=== PATIENT | female | born 1950 | race Caucasian/White ===

== ENCOUNTER 2021-11-19 09:48 | Outpatient (RCR) | payer OTHER, MEDICARE, SELFPAY ==
--- OUTSIDE RECORDS SUMMARY | 2021-11-08 11:10 | XMS_ITS | Continuity of Care Document ---
:1950 Author Care Team Providers Name Role Phone MD Anjel Nava Admitting Physician MD Starr Perez Primary Care Physician Allergies, Adverse Reactions, Alerts Allergen Type Severity Reaction Last Verified Status Updated Aspirin Allergy Mild UNKNOWN September 06, Yes Active 2021 Erythromycin Allergy Mild September 06, Yes Activ e 2021 Dapagliflozin Adverse Moderate September 06, Yes Acti ve Reaction 2021 Social History Smoking Status Status Start Date End Date Date of Observat ion Never smoked tobacco 2021 6:30pm (finding) Observation Status Observation Response Date of Response History provided by Patient April 05, 2019 12:43pm Where do you live? Own home/apt April 05, 2019 12:43pm With whom do you live? Alone February 20, 2018 8:30pm Comment on who patient lives 3 roommates April 052018 12:43pm with Are you responsible for the Yes February 142013 2:25pm care of someone else? 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 Any in-home services prior to No February 14, 2014 2:25pm this hospitalization? Are your needs being met in Yes February 142013 2:25pm your place of residence? Will you return to your Yes February 14, 2014 2:25pm previous living situation? Will you need any new or No February 14, 2014 2:25pm increased services? Will you have the help you Unsure January 2:25pm need when you leave the hospital? 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) COPD (chronic obstructive pulmonary Acti ve disease) Incisional hernia Active Venous stasis of both lower extremities Active Osteoarthritis, shoulder Active Anticoagulation goal of INR 2 to 3 Activ e Malaise Active Cough Active Upper respiratory infection Active History of cardiac pacemaker in situ 2007 Res olved History of amputation of toe Resolved History of esophagogastroduodenoscopy February 22, 2018 Re solved (EGD) History of section Resolved Medications Medication Status Dose Units Route Directions Qty Days Start End Ins tructions Date Date Acetaminophe Active 500 MG PO Every 6 NO M ORE THAN n (Tylenol Hours as 4000 M G/DAY Extra needed Strength) 500 Mg TAB Acyclovir Active 400 MG PO Twice A Day September 24, 2021 3:47pm Albuterol Active 2 PUFF INH Every 4 1 Novembe (Ventolin Hours as r , Hfa) 90 Mcg needed 2019 DOSE 4:04pm Albuterol/Ip Active 1 NEB NEB Four Times 1 Februar ratropium Daily as y , (Duoneb) 3 needed 2020 Mg/0.5 Mg 7:46am NEB Balsalazide Active 2250 MG PO Three Times Disodium A Day (Colazal) 750 Mg CAP Cholecalcife Active 4000 UNIT PO Daily rol (Vitamin D) 2,000 Unit TAB Diabetic Active 1 EACH XX Daily November Supplies: , Pen [place] 2020 (Bd 1:34pm Ultrafine Short 8MM(09/30) 31G Pen Needle) MIS Furosemide Active 20 MG PO Every July (Lasix) 20 Morning 4th, Mg TAB 2020 4:04pm Glipizide Active 7.5 MG PO Twice Daily 90 Decembe With Meals r 2019 8:49am Insulin Active 36 UNIT SUBQ Daily Glargine (Lantus Solostar) 100 Unit/Ml INJ Metformin Active 500 MG PO Twice Daily 60 Hcl With Meals Pseudoephedr Active 60 MG PO Every August For ine Hcl Hours as , drying/de pamela (Pseudoephed needed 2021 estion rine 6:31pm Hydrochlo) 60 Mg TAB Simvastatin Active 40 MG PO Bedtime August 02, 2020 3:16pm Warfarin Active 2.5-5 MG PO Daily Ritter 2.5 M G, M 5 MG, Tu 2.5 MG, W 5 MG, Th 2.5 MG, F 5 MG, Sa Sodium r , 2.5 MG 2019 4:04pm Acetaminophe Disconti 1 - 2 TABLET PO Every 4-6 November e PRN n/Hydrocodon nued Hours 16, r 3rd, e Bitart 2005 2006 (Vicodin) 5 2:18pm 2:09pm Mg/500 Mg TAB Acyclovir Disconti 400 MG PO Twice A Day May nued , , 2021 2021 2:59pm 3:47pm Acyclovir Disconti 400 MG PO Twice A Day 90 Decembe Janua r nued r , 2019, 8:51am 2021 2:59pm Acyclovir Disconti 400 MG PO Twice A Day 180 May nued , 2020 4:34am 2:00pm Acyclovir Disconti 400 MG PO Twice A Day 50 Decemb nued er 2019 8:51am Acyclovir Disconti 400 MG PO Twice A Day August nued , 2019 10:58am 11:06a m Albuterol Disconti 2 PUFF INH Every 4 (Ventolin nued Hours as y , er Hfa) 90 Mcg needed 2019, DOSE 3:47pm 2019 4:04pm Albuterol Disconti 2 PUFF INH Every 4 Sulfate nued Hours as er (Proair Hfa) needed , 90 Mcg/Puff 2016 INH 4:03pm Albuterol/Ip Disconti 1 NEB NEB Four Times Jun layla ratropium nued Daily as r 16, ry (Duoneb) 3 needed 2020 04, Mg/0.5 Mg 5:17pm 2020 NEB 7:46am Albuterol/Ip Disconti 1 NEB NEB Four Times November b ratropium nued Daily as 8th, er (Duoneb) 3 needed 2019 16, Mg/0.5 Mg 2:18pm 2019 NEB 5:17pm Albuterol/Ip Disconti 1 NEB NEB Four Times July ratropium nued Daily as , , (Duoneb) 3 needed 2019 2019 Mg/0.5 Mg 3:52pm 2:18pm NEB Albuterol/Ip Disconti 1 NEB NEB Four Times 1 Novemjul ch ratropium nued Daily as r , , (Duoneb) 3 needed 2018 2019 Mg/0.5 Mg 8:08am 3:52pm NEB Atorvastatin Disconti 10 MG PO Daily December Calcium nued , (Lipitor) 10 2012 Mg TAB 4:43pm Azithromycin Disconti 250 MG PO Daily 4 Novemfebobe nued r , r , 2016 2017 1:10pm 12:46p m Bumetanide Disconti 2 MG PO Daily December (Bumex) 2 Mg nued , TAB 2012 4:45pm Butenafine Disconti 1 REANNA TOP Daily Novemb Hcl nued er (Lotrimin , Ultra) 1 % 2015 CRE 11:52a m Ciprofloxaci Disconti 500 MG PO Twice A Day 28 February Au carlos n Hcl nued , , (Cipro) 500 2006 2012 Mg TAB 3:01pm 4:43pm Dapagliflozi Disconti 10 MG PO Daily Novemb n nued er Propanediol , (Farxiga) 10 2016 Mg TAB 4:03pm Dextromethor Disconti 10 ML PO Every 4 February gonzales-Guaifen nued Hours as 2nd, er esin needed 2013, (Robitussin 8:13am 2015 Dm) 10 11:52a Mg/100 Mg/5 m Ml SOLN Diabetic Disconti 1 EACH XX Daily August Supplies: nued , , Pen [place] 2019 2020 (Bd 11:04am 1:34pm Ultrafine Short 8MM(5/16) 31G Pen Needle) MIS Fluconazole Disconti 200 MG PO Once 1 October mary e once when needed while on antibiotics this week for nued r , , yeast infect ion. lasts 3 days. 2018 2020 8:08am 12:44p m Fluconazole Disconti 150 MG PO Qmon Decemb nued er 2017 12:37p m Fluconazole Disconti 150 MG PO Weekly November nued , 2012 8:08pm 4:43pm Furosemide Disconti 20 MG PO Every July (Lasix) 20 nued Morning 4th, Mg TAB 2019 4:04pm Furosemide Disconti Octobe (Lasix) 40 nued r 3rd, Mg TAB 2006 2:09pm Glipizide Disconti 7.5 MG PO Twice Daily 60 Decemb nued With Meals er 2019 8:49am Glipizide Disconti 1.5 TAB PO Bid Before July Ta ke 1 and nued Meals , , 1/2 tablets 2019 2019 BID before 9:41am 11:06a meals. m Glipizide Disconti 7.5 MG PO Daily 45 July Take 1 and nued y , , 05/19 tablets 2019 2019 daily before 3:06pm 9:41am meals Guaifenesin/ Disconti 5-10 ML PO Every 6 120 Novembe Novemb Codeine nued Hours r , er Phosphate 2015, (Guaifenesin 9:18am 2017 -Codeine) 4:03pm 100 Mg/10 Mg/5 Ml SOLN Hydrocortiso Disconti 1 REANNA TOP Twice A Day 30 Novryan chang ne nued er (Hydrocortis 19, one Cream) 2018 2.5 % CRE 12:38p m Hydrocortiso Disconti 1 REANNA TOP Twice A Day Chacorta chang ne (Topical) nued er (Hydrocortis 15th, one) 2.5 % 2016 LOT 11:52a m Insulin Disconti 27 UNIT SUBQ Bedtime Novemb Glargine nued er (Lantus 19th, Solostar) 2016 100 Unit/1 4:03pm Ml SOLN Insulin Disconti 20 UNIT SUBQ Bedtime 10 Septem Glargine nued lisa (Lantus 30th, Vial) 100 2014 Unit/1 Ml 12:20p SOLN m Insulin Disconti 22 UNIT SUBQ Daily Novemb Glargine-Lix nued er isenatide , (Soliqua 2016 100/33 4:15pm 100-33 Unt-Mcg/Ml) 1 Inj INJ Lactic Acid Disconti 12 % EX Daily Novemb (Ammonium nued er Lactate) , (Ammonium 2019 Lactate) 12 12:38p % CRE m Lactic Acid Disconti 1 REANNA TOP as needed Novem (Ammonium nued er Lactate) , (Ammonium 2015 Lactate) 11:52a % CRE m Levofloxacin Disconti 500 MG PO Every 24 7 Novemmayua r (Levaquin) nued Hours r , y 500 Mg TAB 2018, 8:08am 2019 11:05a m Levofloxacin Disconti 750 MG PO Daily (Levaquin) nued r , er 750 Mg TAB 2015, 9:18am 2016 4:03pm Levofloxacin Disconti 500 MG PO Daily February (Levaquin) nued 2nd, er 500 Mg TAB 2013, 8:13am 2015 11:52a m Levofloxacin Disconti 750 MG OR Daily nued er 3rd, lisa 2012, 12:17pm 2013 12:20p m Loratadine Disconti 10 MG PO Daily as 30 Febobe (Claritin) nued needed r , 10 Mg TAB 2017 12:46p m Mesalamine Disconti 500 MG PO Four Times December (Pentasa) nued Daily , 500 Mg CAP 2012 4:43pm Oxycodone/Ac Disconti 1 - 2 TABLET PO Q4-6H Prn as December etaminophen nued needed er , (Percocet) 2012 Mg/325 Mg 2010 4:47pm TAB 7:30pm Pentaza Disconti Octobe nued r 2006 2:09pm Potassium Disconti 20 MEQ PO Daily December Chloride nued 2012 4:43pm Prednisone Disconti 0 PO Daily Ud August 60 MG PO on day 1, THEN nued , 40 MG PO DAILY FOR 4 DAYS. 2021 2021 6:31pm 1:46pm Prednisone Disconti 20 MG PO Daily With 3 3 Dulce r nued Am Meal r , y 2018, 8:08am 2019 11:05a m Prednisone Disconti 20 MG PO Daily 4 Novem Octobe nued r , r 7th, 2016 2017 1:08pm 12:46p m Salmeterol Disconti 1 PUFF PO As Needed 14 January Xinafoate/Fl nued , uticasone 2012 (Advair 4:45pm Diskus 100/50) 1 Ea AERP Simvastatin Disconti 40 MG PO Bedtime July nued r , 2019 8:56am 3:16pm Simvastatin Disconti 40 MG PO Bedtime December nued , er 2019, 3:16pm 2019 8:56am Simvastatin Disconti 40 MG PO Bedtime November 7:38pm 3:16pm Simvastatin Disconti 40 MG PO Bedtime November 7:38pm Sulfamethoxa Disconti 1 TAB PO Twice A Day Jan zole-Trimeth nu lisa oprim , (Bactrim Ds) 2013 800 Mg/160 12:20p Mg TAB m Triamcinolon Disconti 1 REANNA TOP Twice A Day 15 Chacorta chang e Acetonide nued er (Triamcinolo , ne Acetonide 2018 (Cream)) 0.1 12:38p % CRE m Triamcinolon Disconti 1 REANNA TOP Twice A Day Chacorta chang e Acetonide nued er (Triamcinolo , ne Acetonide 2015 (Cream)) 0.1 11:52a % CRE m Warfarin Disconti 2.5-5 MG PO Daily November Ritter 2.5 MG, M 5 MG, Tu 2.5 MG, W 5 MG, Th 2.5 MG, F 5 MG, Sa Sodium , er 2.5 MG 2019, 4:56pm 2019 4:04pm Warfarin Disconti 5 MG PO As Directed October Ritter 2.5 MG, M 5 MG, Tu 2.5 MG, W 5 MG, Th 2.5 MG, F 5 MG, Sa Sodium nued , 24, 2.5 MG 2019 2019 1:26pm 4:19pm Warfarin Disconti 5 MG PO As Directed August Ritter 5 MG, M 2.5 MG, Tu 2.5 MG, W 2.5 MG, Th 2.5 MG, F 2.5 Sodium nued , , MG, Sa 2.5 MG 2019 2019 10:58am 1:26pm Warfarin Disconti 5 MG PO As Directed August Ritter 5 MG, M 2.5 MG, Tu 2.5 MG, W 2.5 MG, Th 2.5 MG, F 2.5 Sodium nued 17th, MG, Sa 2.5 MG 2019 10:58a m Warfarin Disconti 5 MG PO As Directed 60 ua 5 MG (1TAB) ON Sodium nued ry THU,THU 2.5MG 7th, (1/2 TABLET) 2019 ON ALL OTHER 2:37pm DAYS Warfarin Disconti 2.5 MG PO Daily 30 Octobe Sodium nued r , 2016 1:08pm 12:46p m Warfarin Disconti 2.5 MG PO Every b Sodium nued Thursday, er Thursday, , 2016, 1:34pm And Thursday Warfarin Disconti 5 MG PO Every Thursday Novemb Sodium nued And Thursday er 2016 1:08pm Warfarin Disconti 5 MG PO Septem Sodium nued lisa (Coumadin) 5 3rd, Mg TAB 2012 12:17p m Warfarin Disconti 2.5 MG PO Suntue Septem Sodium nued lisa (Coumadin) 5 3rd, Mg TAB 2012 12:17p m Warfarin Disconti 0.5 MG PO Tthsasun December Sodium nued , (Coumadin) 1 2012 Mg TAB 4:43pm Warfarin Disconti 1 MG PO Mwf December Sodium nued , (Coumadin) 1 2013 Mg TAB 4:39pm Warfarin Disconti Octobe Sodium nued r 3rd, (Coumadin) 1 2007 Mg TAB 2:09pm Warfarin Disconti Octobe Sodium nued r 3rd, (Coumadin) 1 2007 Mg TAB 2:09pm Immunizations Immunization Event Date Not Given Dose [employer] [place] Reason Number Number Informatio n Statement (VIS) Deta il Herpes Zoster February 152013 Influenza March 182018 Prevnar Adult October 202014 Pneumovax Adult December 222017 Tdap March 18 (adolescent/adul 2007 t) Relevant Diagnostic Tests and/or Laboratory Data Laboratory Results Test Date/Time Result Interpretation Reference Result Perfo rming Range Comment Site White Blood September 06, 6.68 5.00-10.00 [facility] Lab Count 2021 9:58am [address] [place] [id number] Red Blood September 06, 4.89 3.90-5.03 [facility] Lab Count 2021 9:58am [address] [place] [address] Hemoglobin September 06, 13.7 12.0-15.5 [facility] 2021 9:58am [address] [facility] [address] Hematocrit September 06, 42.0 34.9-44.5 [facility] 2021 9:58am [address] [place] [address] Mean September 06, 86 82-98 [facility] Corpuscular 2021 9:58am [address] [facility] [place] [address] Mean September 06, 28 27-34 [facility] Corpuscular 2021 9:58am [address] [facility] Hemoglobin [facility] [place] [address] Mean September 06, 33 32-36 [facility] Corpuscular 2021 9:58am [address] [facility] Hemoglobin [facility] [place] [address] Concent Platelet Count September 06, 273 150-450 [facility] 2021 9:58am [address] [facility] [address] RDW September 06, 13.1 11.5-15.3 [facility] Lab Coefficient of 2021 9:58am 200 0 [place] [address] Neutrophils September 06, 76.0 50.0-70.0 [facility] (%) (Auto) 2021 9:58am [address] No [facility] [address] Lymphocytes September 06, 15.0 25.0-45.0 [facility] (%) (Auto) 2021 9:58am 1999 [place] [address] Monocytes (%) September 06, 6.7 0.00-11.0 [facility] (Auto) 2021 9:58am [address] [facility] [place] [address] Eosinophils September 06, 1.6 0.0-7.0 [facility] (%) (Auto) 2021 9:58am 1999 [address] [facility] [address] Basophils (%) September 06, 0.4 0.0-3.0 [facility] (Auto) 2021 9:58am [address] [facility] [address] Immature September 06, 0.3 [facility] Lab Granulocyte % 2021 9:58am [address] [facility] (Auto) [facility] [address] Neutrophils # September 06, 5.07 1.70-7.00 [facility] Hospital Lab (Auto) 2021 9:58am [address] [facility] [address] Lymphocytes # September 06, 1.00 0.90-2.90 [facility] Hospital Lab (Auto) 2021 9:58am [address] [facility] [address] Monocytes # September 06, 0.45 0.30-0.90 [facility] Lab (Auto) 2021 9:58am [address] [facility] [address] Eosinophils # September 06, 0.11 0.00-0.50 [facility] Hospital Lab (Auto) 2021 9:58am [address] [facility] [address] Basophils # September 06, 0.03 0.00-0.20 [facility] Hospital Lab (Auto) 2021 9:58am [address] [facility] [address] Immature September 06, 0.02 [facility] Hospital Lab Granulocyte # 2021 9:58am [address] [facility] (Auto) [facility] [address] Direct September 06, 0.2 0.0-0.5 [facility] Hospital Lab Bilirubin 2021 9:58am [address] [facility] [address] Aspartate September 06, 21 12-35 [facility] Lab Amino Transf [address] [facility] (AST/SGOT) [place] [address] Alkaline September 06, 56 40-150 [facility] Lab Phosphatase 2021 9:58am [address] [facility] [address] Advance Directives Advance Directive Response Recorded Date/Time Does Pt have Health Care No February 14, 2014 2:14pm Directive? Has patient completed a No 2021 6:02pm Health Care Directive? Insurance Providers Guarantor Narcisa Fields Address [address] [facility] [address] Contact Info. Home Phone: CELL Payer Policy Id Coverage Id Subscriber's Subscriber Id Effective E xpiration Name Date Date [employer] [id number] Timmy, December 16, [place] [address] Narcisa B [id number] [facility] Encounters Encounter Location(s) Arrival/Admit Date Discharge/Depart Date Provider(s) Registered [place] October 17, 2021 Jimi Nunn [facility] 7:05am Plan of Treatment Future Tests Future scheduled test information is unavailable Pending Tests Pending diagnostic test information is unavailable Future Visits Future appointment information is unavailable Referrals to Other Providers Reason for Referral Start Provider Provider Contact Provider Address Referral Date Information Tiny Perez Work Phone: DIDI Gordillo [place] [address] [facility] [address] [address] Tod Kwok Work Phone: [phone] [facility] [address] [address] Future Procedures Future procedure information is unavailable Future Medications Future medication information is unavailable Patient Instructions Prednisone (By mouth) Fluconazole (By mouth) Levofloxacin (By mouth) Ipratropium/Albuterol (By breathing) COPD (Chronic Obstructive Pulmonary Dise ase) (DC) Community Acquired Pneumonia (DC)
[2021-11-19 10:12] VITALS: BP 130/81; PULSE 68; RESP 16; TEMP 36.2; O2SAT 96
[2021-11-19] MEDS: CYANOCOBALAMIN 1,000 MCG/ML inj 1000 MCG IM (10:26)
== END 2021-12-15 23:59 | disposition home or self-care (01) ==
LOC: CCIC 09:48
PROVIDERS: PCP Family Medicine; Visit Provider Internal Medicine Hematology & Oncology
DX: C49.A4 Gastrointestinal stromal tumor of large intestine (principal); E53.8 Deficiency of other specified B group vitamins
CPT/HCPCS: 96372; J3420

== ENCOUNTER 2022-01-15 19:46 | Emergency (ER) | payer OTHER, MEDICARE, SELFPAY ==
[2022-01-15 19:54] VITALS: BP 130/89; PULSE 68; RESP 16; TEMP 36.4; O2SAT 94; BMI 38.5
--- NOTE | 2022-01-15 20:12 | CRLHL7_ITS ---
For Patients: As a result of the Cures Act, medical imaging exams and procedure reports are released immediately into your electronic medical record. You may view this report before your referring provider. If you have questions, please contact your health care provider. Indication: Right-sided back pain Technique: Two views of the lumbar spine were acquired Comparison: None Findings: No fracture, dislocation or destructive process. The height of the vertebral bodies is normal. There degenerative changes mainly in the facet joints of the mid and lower lumbar spine. There is mild diffuse disc degenerative disease. No malalignment. Impression: Degenerative changes mainly in the facet joints of the mid and lower lumbar spine. Mild diffuse disc degeneration. No fracture or destructive process Dictated by Solo Ivan MD @ 01/15/2022 8:45:46 PM (Electronically Signed)
[2022-01-15 20:28] LABS: Appearance Urine Clear (Clear); Bilirubin Urine Negative (Negative); Blood Urine 3+ (Negative); Color Urine Yellow (Yellow); Glucose Urine Trace (Negative); Ketones Urine Negative (Negative); Leukocyte Esterase Urine Negative (Negative); Nitrite Urine Negative (Negative); Protein Urine Trace (Negative); Specific Gravity Urine >= 1.030 (1.000-1.030); Urobilinogen Urine 0.2 (0.2-1.0)
--- NOTE | 2022-01-15 20:34 | ED.BACK ---
HPI - Back Pain/Injury General Chief Complaint: Back Injury/Pain Stated Complaint: Lower Back Pain/Right Side Time Seen by Provider: 01/15/22 19:55 Source: patient Mode of arrival: wheelchair Limitations: no limitations History of Present Illness HPI Narrative: Patient is a very nice 71-year-old female who presents with her significant other with a history of 24-36 hours of right flank back discomfort. There is some radiation to her right hip with this. He has no history of falls or trauma associated with this, she describes to me the pain is approximately 7/10, she has been taking Tylenol 2 extra-strength every 4-6 hours. With no relief of the pain. She does not describe any abdominal symptoms such as radiation to the right groin, nausea vomiting diarrhea, abdominal pain, dysuria frequency, or vaginal discharge. She has had back pain before and right hip discomfort, which she has been told it was musculoskeletal. She does have a history of a malignancy, but has been clear for the last 2-3 years, note this in her chart, is reviewed. 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 She did have a CT scan done of the chest abdomen and pelvis in August 2021, this was clear of any tumor, or metastases, I do also note on that that there is no nephrolithiasis or aortic dilatation. History of appendectomy, cholecystectomy, known abdominal wall hernia, previous gastric surgery Exacerbating factors: movement, sitting upright and walking Relieving factors: none and immobilization Associated symptoms: denies other symptoms Treatments prior to arrival: acetaminophen Work related injury: No Related Data Home Medications Medication Instructions Recorded Confirmed acetaminophen 500 mg capsule 500 mg PO Q6H PRN 11/14/21 11/14/21 acyclovir 400 mg tablet 400 mg PO BID 11/14/21 11/14/21 albuterol sulfate 90 mcg/actuation 2 inh inhalation Q4H PRN 11/14/21 11/14/21 aerosol inhaler (ProAir HFA) balsalazide 750 mg capsule 2,250 mg PO TID 11/14/21 11/14/21 cholecalciferol (vitamin D3) 50 4,000 unit PO DAILY 11/14/21 11/14/21 mcg (2,000 unit) capsule furosemide 20 mg tablet 20 mg PO DAILY 11/14/21 11/14/21 glipizide 5 mg tablet 7.5 mg PO BIDWM 11/14/21 11/14/21 insulin glargine 100 unit/mL (3 36 unit subcut DAILY 11/14/21 11/14/21 mL) subcutaneous pen (Lantus Solostar U-100 Insulin) ipratropium 0.5 mg-albuterol 3 mg 3 ml inhalation Q6H 11/14/21 11/14/21 (2.5 mg base)/3 mL nebulization soln metformin 500 mg tablet 500 mg PO BIDWMEAL 11/14/21 11/14/21 pseudoephedrine HCl 60 mg tablet 60 mg PO Q6H PRN 11/14/21 11/14/21 simvastatin 40 mg tablet 40 mg PO QPM 11/14/21 11/14/21 warfarin 2.5 mg tablet 2.5 mg PO DAILY 11/14/21 11/14/21 Allergies Allergy/AdvReac Type Severity Reaction Status Date / Time aspirin Allergy Mild Verified 11/19/21 10:34 dapagliflozin Allergy Unknown Verified 11/19/21 10:34 erythromycin base Allergy Unknown Verified 11/19/21 10:34 Review of Systems Status of ROS: Reports: 10 or more systems reviewed and unremarkable except as noted in History and below [facility] Medical History Anticoagulation goal of INR 2 to 3 Cardiomyopathy Chronic atrial fibrillation Chronic obstructive pulmonary disease Cough History of amputation of toe History of cardiac pacemaker in situ (2007) History of Clostridioides difficile colitis (02/22/18) History of colonic polyps (2010) History of Crohn's disease 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) History of vitamin D deficiency Hyperlipidemia Incisional hernia Malaise Osteoarthritis of shoulder Type 2 diabetes mellitus Upper respiratory tract infection Venous stasis of both lower extremities Surgical History History of section History of esophagogastroduodenoscopy (EGD) (02/22/18) History of laparoscopic partial gastrectomy (~03/2018) Social History Smoking Status: Never smoker How often do you have a drink containing alcohol: never AUDIT-C Alcohol total score: 0 Non-prescribed substance use: denies use service: No Exam Narrative: Exam Narrative: I find her in room 3, she is offloading her right side, while sitting, she is able to stand for me, forward flexion is approximately 30?, with increased pain. No palpable tenderness noted over her back on palpation percussion, she does symptom excoriations from scratching, and some mild small ulcers from the scratching. But none of them appear infected. She is able to walk for me, in the room both heel and toe walking or assessed and normal, straight leg raising in the seated position is normal bilaterally, EHLs great toe flexors ankle dorsiflexors plantar flexors knee flexors 10 sirs and hip flexors are graded 5/5 power bilaterally, she does have some lymphedema both legs bilaterally, 1 to 2+, I am able to feel her posterior tibial pulses which seems strong bilaterally. Reflexes are 0-4 her ankles and knees. Her abdomen is obese and distended, hernias are noted, there is no tenderness at all to palpation, bowel sounds are normal, there is no organomegaly I can discern, but due to the large size of her abdomen and this is tough. Skin reveals no evidence of any rashes, other than described above, normal power in her lower extremities and upper extremities is noted. Const: Vital Signs, click to edit/add: Vital Signs - 24 hr 01/15/22 19:54 01/15/22 21:39 Temperature 97.6 F Pulse Rate [Right Pulse Oximeter] 68 78 Respiratory Rate 16 18 Blood Pressure [Ri ght Upper Arm] 130/89 134/61 Pulse Oximetry 94 96 Oxygen Delivery Me thod Room Air Room Air Documenting provider has reviewed patient's vital signs: yes Course Course Hospital Course: Patient improved with the Vicodin, her labs showed that she had a little bit of blood in her urine, for that reason a CT scan was done this was negative for stone, at this point I think we can let her go home, incidentally her lumbar spine showed that she had an L4-5 protrusion, which I do not think is causing her issues. But would be a possibility going forward if this becomes an issue Vital Signs Vital signs: Initial Vital Signs Temperature 97.6 F 01/15/22 19:54 Temperature Source Temporal Artery Scan 01/15/22 19:54 Pulse Rate 68 01/15/22 19:54 Respiratory Rate 16 01/15/22 19:54 Blood Pressure 130/89 01/15/22 19:54 Blood Pressure Mean 102 01/15/22 19:54 Blood Pressure Position Sitting 01/15/22 19:54 Pulse Oximetry 94 01/15/22 19:54 Oxygen Delivery Method 01/15/22 19:54 Vital Signs Temperature 97.6 F 01/15/22 19:54 Pulse Rate 68 01/15/22 19:54 Respiratory Rate 16 01/15/22 19:54 Blood Pressure 130/89 01/15/22 19:54 Pulse Oximetry 94 01/15/22 19:54 Oxygen Delivery Method 01/15/22 19:54 Temperature 97.6 F 01/15/22 19:54 Pulse Rate 78 01/15/22 21:39 Respiratory Rate 18 01/15/22 21:39 Blood Pressure 134/61 01/15/22 21:39 Pulse Oximetry 96 01/15/22 21:39 Oxygen Delivery Method 01/15/22 21:39 MDM - Back Pain/Injury MDM Narrative Medical decision making narrative: Life-threatening differential diagnosis considered include: Cauda equina an epidural abscess, other differential diagnosis considered includes sprain, contusion, nerve root entrapment, radiculopathy, muscle spasm, urolithiasis, lumbar fracture, pyelonephritis, appendicitis, biliary colic, as well as other etiologies. The patient denies saddle anesthesia bowel or bladder incontinence or lower extremity weakness, recent weight loss, or history of malignancy. Differential Diagnosis Differential diagnosis: Likely lumbar radiculopathy, sciatica, strain of lumbar region, renal colic, thoracic back pain, AAA and discitis Lab Data Labs: Lab Results 01/15/22 Range/Units 20:20 Urine Color Yellow (Yellow) Urine Appearance Clear (Clear) Urine pH 5.0 (5.0-8.5) Ur Specific [place] >= 1.030 (1.000-1.030) Urine Protein Trace A (Negative) Urine Glucose (UA) Trace A (Negative) Urine Ketones Negative (Negative) Urine Blood 3+ A (Negative) Urine Nitrite Negative (Negative) Urine Bilirubin Negative (Negative) Urine Urobilinogen 0.2 (0.2-1.0) Ur Leukocyte Esterase Negative (Negative) Urine RBC 10-25 A (0-2) Urine WBC 0-2 (0-5) Ur Squamous Epith Cells Few (None-Few) Urine Bacteria None (None) Imaging Data CT scan - abdomen: Attestation: I have reviewed the pertinent imaging results. My impression: Negative for stone, hernia noted in the abdomen, with bowels within it, no evidence of incarceration. Radiologist's impression: Patient: NARCISA FIELDS Facility:?[facility] Patient ID:?[id number] Site Patient ID:?[id number]. Site :?[id number] Study:?CT Abdomen/Pelvis w/o Contrast-01/15/2022 10:04:28 PM Ordering Physician:Jennifer Sousa Final Report: Indication: Right-sided back pain hematuria Technique: Noncontrast CT abdomen and pelvis Comparison: CT abdomen pelvis 09/06/2021 Findings: Heart is enlarged. There is no pericardial effusion. No pleural effusion basilar atelectasis. Mild splenomegaly measuring 14 cm. Adrenal glands unremarkable pancreas unremarkable no abdominal aortic aneurysm. Kidneys are unremarkable. No hydronephrosis or renal calculi the unenhanced liver is unremarkable cholecystectomy. Postsurgical changes from partial gastrectomy. Ventral hernia containing fat and bowel loops without obstruction . There is skin thickening and mild subcutaneous stranding in the periumbilical region correlate clinically for cellulitis Diverticulosis. Urinary bladder incompletely distended, unremarkable. Subcutaneous edema. Bones appear demineralized no suspicious bony lesions. Impression: 1. No acute findings in the abdomen or pelvis. No renal calculi or hydronephrosis. 2. Mild skin thickening and subcutaneous stranding along the periumbilical region and lower abdominal wall correlate clinically for possible cellulitis. 3. Subcutaneous edema. Please note that all CT scans at this facility use dose modulation, iterative reconstruction, and/or weight-based dosing when appropriate to reduce radiation dose to as low as reasonably achievable. Dictated by Ruthie Luna MD @ 01/15/2022 10:44:56 PM (Electronic Signature) Discharge Plan Discharge Clinical Impression: Strain of lumbar region, Hematuria, Chronic anticoagulation Patient Disposition: Home w/ Parent or Adult Condition: Stable Instructions: Back Pain (ED) Additional Instructions: Home, rest, use of ice alternating with heat, follow-up with primary care physical therapy may be needed, you can use the prescription I have given you, please do not use any other Tylenol with this. As there is Tylenol in with the Vicodin. Do Not combine alcohol with this, and use it sparingly as there is a risk of addiction. Prescription for Vicodin given through instymeds Activity Level: Light activity Prescriptions: No Action acetaminophen 500 mg capsule 500 mg PO Q6H PRN acyclovir 400 mg tablet 400 mg PO BID albuterol sulfate [ProAir HFA] 90 mcg/actuation HFA aerosol inhaler 2 inh inhalation Q4H PRN balsalazide 750 mg capsule 2,250 mg PO TID cholecalciferol (vitamin D3) 50 mcg (2,000 unit) capsule 4,000 unit PO DAILY furosemide 20 mg tablet 20 mg PO DAILY glipizide 5 mg tablet 7.5 mg PO BIDWM insulin glargine [Lantus Solostar U-100 Insulin] 100 unit/mL (3 mL) insulin pen 36 unit subcut DAILY ipratropium-albuterol 0.5 mg-3 mg(2.5 mg base)/3 mL solution for nebulization 3 ml inhalation Q6H metformin 500 mg tablet 500 mg PO BIDWMEAL pseudoephedrine HCl 60 mg tablet 60 mg PO Q6H PRN simvastatin 40 mg tablet 40 mg PO QPM warfarin 2.5 mg tablet 2.5 mg PO DAILY Follow Up/Referrals: Tiny Perez MD [Primary Care Provider] - Stand Alone Forms: [employer] Info Instructions
[2022-01-15] MEDS: HYDROCODONE-ACETAMIN 5-325 MG 1 TAB PO (20:35)
[2022-01-15 21:05] LABS: WBC Urine 0-2 (0-5)
[2022-01-15 21:06] LABS: Squamous Epithelial Cell Urine Few (None-Few)
--- NOTE | 2022-01-15 21:12 | CRLHL7_ITS ---
For Patients: As a result of the Century Cures Act, medical imaging exams and procedure reports are released immediately into your electronic medical record. You may view this report before your referring provider. If you have questions, please contact your health care provider. Indication: Right-sided back pain hematuria Technique: Noncontrast CT abdomen and pelvis Comparison: CT abdomen pelvis 09/06/2021 Findings: Heart is enlarged. There is no pericardial effusion. No pleural effusion basilar atelectasis. Mild splenomegaly measuring 14 cm. Adrenal glands unremarkable pancreas unremarkable no abdominal aortic aneurysm. Kidneys are unremarkable. No hydronephrosis or renal calculi the unenhanced liver is unremarkable cholecystectomy. Postsurgical changes from partial gastrectomy. Ventral hernia containing fat and bowel loops without obstruction . There is skin thickening and mild subcutaneous stranding in the periumbilical region correlate clinically for cellulitis Diverticulosis. Urinary bladder incompletely distended, unremarkable. Subcutaneous edema. Bones appear demineralized no suspicious bony lesions. Impression: 1. No acute findings in the abdomen or pelvis. No renal calculi or hydronephrosis. 2. Mild skin thickening and subcutaneous stranding along the periumbilical region and lower abdominal wall correlate clinically for possible cellulitis. 3. Subcutaneous edema. Please note that all CT scans at this facility use dose modulation, iterative reconstruction, and/or weight-based dosing when appropriate to reduce radiation dose to as low as reasonably achievable. Dictated by Ruthie Luna MD @ 01/15/2022 10:44:56 PM (Electronically Signed)
[2022-01-15 21:39] VITALS: BP 134/61; PULSE 78; RESP 18; O2SAT 96
== END 2022-01-15 22:54 | disposition home or self-care (01) ==
PROVIDERS: Emergency Provider Family Medicine; PCP Family Medicine
DX: S39.012A Strain of muscle, fascia and tendon of lower back, initial encounter (principal); R31.9 Hematuria, unspecified; Z79.01 Long term (current) use of anticoagulants
CPT/HCPCS: 72100; 74176; 81001; 99284; 99285; A9270

== ENCOUNTER 2022-01-16 06:51 | Outpatient (CLI) | payer OTHER, MEDICARE, SELFPAY | END 2022-01-16 06:52 | disposition home or self-care (01) | LOC: AMB 01-27 11:46 | PROVIDERS: PCP Family Medicine; Visit Provider Family Medicine | DX: R10.9 Unspecified abdominal pain (principal) | CPT/HCPCS: A0425; A0427 ==

== ENCOUNTER 2022-01-16 07:12 | Emergency (ER) | payer OTHER, MEDICARE, SELFPAY ==
[2022-01-16 07:18] VITALS: BP 156/86; PULSE 61; RESP 18; TEMP 36.6; O2SAT 95; BMI 39.8
--- NOTE | 2022-01-16 07:38 | ED_ITS ---
HPI - Back Pain/Injury General Time Seen by Provider: 07:38 <Lars Hernandez MD - Last Filed: 01/23/22 08:59> Date Seen: 01/16/22 <Lars Hernandez MD - Last Filed: 01/23/22 08:59> Chief Complaint: Back Injury/Pain <Lars Hernandez MD - Last Filed: 01/23/22 08:59> Time Seen by Provider: 01/16/22 07:36 <Lars Hernandez MD - Last Filed: 01/23/22 08:59> Source: patient <Lars Hernandez MD - Last Filed: 01/23/22 08:59> Mode of arrival: EMS <Lars Hernandez MD - Last Filed: 01/23/22 08:59> Limitations: no limitations <Lars Hernandez MD - Last Filed: 01/23/22 08:59> History of Present Illness HPI Narrative: Patient is a 71-year-old female who presents here with right flank pain I saw her last night, she improved yesterday with 1 Vicodin, her pain seem more musculoskeletal, with no radiation. She went home, she has taken a total of 2 doses of hydrocodone since then but the pain has become unbearable. There is no radiation of the discomfort into her buttock, or into her abdomen. She did have hematuria on noncontrast CT, which I did for the primary indication of renal colic. There is no evidence of renal colic or really any evidence of anything else. She has the chronic problem with hernia, but there is no evidence of strangulation or incarceration. In fact she has no abdominal pain at all, she is nauseous and did vomit once on the way to the emergency room by EMS, but she feels this is from the Vicodin. No fevers or chills, no dysuria frequency, no pain with breathing, no chest discomfort, feeling she might pass out, rapid heart rate, or regular heart rate. <Lars Hernandez MD - Last Filed: 01/23/22 08:59> MD elicited complaint: back pain <Lars Hernandez MD - Last Filed: 01/23/22 08:59> Pertinent past history: prior back pain <Lars Hernandez MD - Last Filed: 01/23/22 08:59> Onset (ago): day(s) <Lars Hernandez MD - Last Filed: 01/23/22 08:59> Timing: progressively worsening <Lars Hernandez MD - Last Filed: 01/23/22 08:59> Severity: severe <Lars Hernandez MD - Last Filed: 01/23/22 08:59> Similar Symptoms Previously: Yes <Lars Hernandez MD - Last Filed: 01/23/22 08:59> Quality: stabbing and aching <Lars Hernandez MD - Last Filed: 01/23/22 08:59> Location: right flank <Lars Hernandez MD - Last Filed: 01/23/22 08:59> Radiation: none <Lars Hernandez MD - Last Filed: 01/23/22 08:59> Exacerbating factors: movement, sitting upright and walking <Lars Hernandez MD - Last Filed: 01/23/22 08:59> Relieving factors: immobilization <Lars Hernandez MD - Last Filed: 01/23/22 08:59> Associated symptoms: hematuria <Lars Hernandez MD - Last Filed: 01/23/22 08:59> Treatments prior to arrival: prescription analgesics <MD Mercedes Jones Last Filed: 01/23/22 08:59> Work related injury: No <MD Mercedes Jones Last Filed: 01/23/22 08:59> Related Data Home Medications: Home Medications Medication Instructions Recorded Confirmed acetaminophen 500 mg capsule 500 mg PO Q6H PRN 11/14/21 01/18/22 acyclovir 400 mg tablet 400 mg PO BID 11/14/21 01/18/22 albuterol sulfate 90 mcg/actuation 2 inh inhalation Q4H PRN 11/14/21 01/18/22 aerosol inhaler (ProAir HFA) balsalazide 750 mg capsule 2,250 mg PO TID 11/14/21 01/18/22 cholecalciferol (vitamin D3) 50 4,000 unit PO DAILY 11/14/21 01/18/22 mcg (2,000 unit) capsule furosemide 20 mg tablet 20 mg PO DAILY 11/14/21 01/18/22 glipizide 5 mg tablet 7.5 mg PO BIDWM 11/14/21 01/18/22 insulin glargine 100 unit/mL (3 36 unit subcut DAILY 11/14/21 01/18/22 mL) subcutaneous pen (Lantus Solostar U-100 Insulin) ipratropium 0.5 mg-albuterol 3 mg 3 ml inhalation Q6H 11/14/21 01/18/22 (2.5 mg base)/3 mL nebulization soln metformin 500 mg tablet 500 mg PO BIDWMEAL 11/14/21 01/18/22 pseudoephedrine HCl 60 mg tablet 60 mg PO Q6H PRN 11/14/21 01/18/22 simvastatin 40 mg tablet 40 mg PO QPM 11/14/21 01/18/22 warfarin 2.5 mg tablet See Rx Instructions PO DAILY 11/14/21 01/19/22 cholecalciferol (vitamin D3) 125 5,000 unit PO DAILY 01/19/22 01/19/22 mcg (5,000 unit) capsule metformin 500 mg tablet,extended 1,000 mg PO BIDWMEAL 01/19/22 01/19/22 release 24 hr tizanidine 2 mg tablet 2 mg PO TID PRN muscle spasticity 01/19/22 01/19/22 Previous Rx's Medication Instructions Recorded tizanidine 2 mg capsule 2 mg PO TID PRN muscle spasticity 01/16/22 #30 caps <Lars Hernandez MD - Last Filed: 01/23/22 08:59> Allergies/Adverse Reactions: Allergies Allergy/AdvReac Type Severity Reaction Status Date / Time aspirin Allergy Mild Verified 01/18/22 19:38 dapagliflozin Allergy Unknown Verified 01/18/22 19:38 erythromycin base Allergy Unknown Verified 01/18/22 19:38 <Lars Hernandez MD - Last Filed: 01/23/22 08:59> Review of Systems Status of ROS: Reports: 10 or more systems reviewed and unremarkable except as noted in History and below <Lars Hernandez MD - Last Filed: 01/23/22 08:59> [facility] Medical History: Medical History (Updated 01/23/22 @ 00:01 by ) 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 Anticoagulation goal of INR 2 to 3 Cardiomyopathy Chronic atrial fibrillation Chronic obstructive pulmonary disease Cough History of amputation of toe History of cardiac pacemaker in situ (2007) History of Clostridioides difficile colitis (02/22/18) History of colonic polyps (2010) History of Crohn's disease 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) History of vitamin D deficiency Hyperlipidemia Incisional hernia Malaise Melena Morbid obesity with BMI of 40.0-44.9, adult Osteoarthritis of shoulder Regional enteritis Type 2 diabetes mellitus Upper respiratory tract infection Venous stasis of both lower extremities <Lars Hernandez MD - Last Filed: 01/23/22 08:59> Surgical History: Surgical History (Updated 01/19/22 @ 01:17 by Kati Kilpatrick MD) H/O rectal polypectomy History of section History of esophagogastroduodenoscopy (EGD) (02/22/18) History of laparoscopic partial gastrectomy (~03/2018) Hx of appendectomy Hx of cholecystectomy <Lars Hernandez MD - Last Filed: 01/23/22 08:59> Family History: Family History (Updated 01/19/22 @ 01:18 by Kati Kilpatrick MD) Father Prostate cancer Mother Diabetes Coronary artery disease <Lars Hernandez MD - Last Filed: 01/23/22 08:59> Social History: Social History Smoking Status: Never smoker How often do you have a drink containing alcohol: never AUDIT-C Alcohol total score: 0 Non-prescribed substance use: denies use Caffeine: Yes (a few cans per day) service: No <Lars Hernandez MD - Last Filed: 01/23/22 08:59> Exam Narrative: Exam Narrative: I find her laying on her left side in room 8, she is pleasant, planing of pain in her right flank. Oropharynx is normal, she is obese, neck is supple, there is no lymphadenopathy, chest is good air entry bilaterally with absence of splinting, there is no wheezing crackles noted, heart sounds no clicks murmurs or gallops, her abdomen is soft and obese, there is a freely reducible midline hernia, notable bowel sounds are normal there is no organomegaly. She does not have any tenderness to palpation over her right flank, percussion palpation, twisting and moving seems to exacerbate the discomfort however, lumbar spine and thoracic spine palpate and percuss negative, she has normal gross perianal sensation, straight leg raising bilaterally is negative in the bed. On the side, she has normal power lower extremities, with no obvious deficits, EHLs great toe flexors ankle dorsiflexors plantar flexors knee flexors and knee extensors and hip flexors are graded 5/5 power bilaterally. No rashes are seen. <Lars Hernandez MD - Last Filed: 01/23/22 08:59> Const: Vital Signs, click to edit/add: Vital Signs - 24 hr 01/16/22 07:18 01/16/22 08:00 Temperature 97.8 F Pulse Rate [Left P ulse Oximeter] 61 61 Respiratory Rate 18 18 Blood Pressure [Ri ght Upper Arm] 156/86 H 156/86 H Pulse Oximetry 95 94 Oxygen Delivery Me thod Room Air Nasal Cannula Oxygen Flow Rate 2 <Lars Hernandez MD - Last Filed: 01/23/22 08:59> Vital Signs, click to edit/add: Vital Signs - 24 hr 01/16/22 07:18 01/16/22 08:00 Temperature 97.8 F Pulse Rate [Left P ulse Oximeter] 61 61 Respiratory Rate 18 18 Blood Pressure [Ri ght Upper Arm] 156/86 H 156/86 H Pulse Oximetry 95 94 Oxygen Delivery Me thod Room Air Nasal Cannula Oxygen Flow Rate 2 <Phylicia Li MD - Last Filed: 01/16/22 11:26> Course Reevaluation(s) Reevaluation #1: Patient awoke from sleep, did ambulate to the bathroom and did provide another urinalysis which is pending. Her pain is better after the IV narcotics but she still has some. It is deeper than what I can palpate. There is no midline tenderness over her spine, no palpable right flank tenderness. Movement does increase this. There is no respiratory component. Have reviewed her labs, her C-reactive protein elevated at 4.5. Her INR is therapeutic. We will proceed with CT abdomen pelvis with IV contrast. We will get a screening SARs test in case she does need hospitalization. I will have them do a lumbar CT off of her CT scan. <Phylicia Li MD - Last Filed: 01/16/22 11:26> Time: 09:01 <Phylicia Li MD - Last Filed: 01/16/22 11:26> Reevaluation #2: Have reviewed patient's lumbar CT as well as her CT abdomen pelvis with IV contrast. We are not seeing anything acute as a causative etiology. Thus, this likely represents musculoskeletal issues. She is intolerant to the narcotics that have been given and has nausea and vomiting with them. I think she is going to have to go with straight Tylenol and we can try a muscle relaxant. I will give her referral for physical therapy. She is just going to have to alter activity and limit it as pain mediates. <Phylicia Li MD - Last Filed: 01/16/22 11:26> Time: 11:20 <Phylicia Li MD - Last Filed: 01/16/22 11:26> Vital Signs Vital signs: Initial Vital Signs Temperature 97.8 F 01/16/22 07:18 Temperature Source Temporal Artery Scan 01/16/22 07:18 Pulse Rate 61 01/16/22 07:18 Respiratory Rate 18 01/16/22 07:18 Blood Pressure 156/86 H 01/16/22 07:18 Blood Pressure Mean 109 01/16/22 07:18 Blood Pressure Position Right Lateral 01/16/22 07:18 Pulse Oximetry 95 01/16/22 07:18 Oxygen Delivery Method 01/16/22 07:18 Vital Signs Temperature 97.8 F 01/16/22 07:18 Pulse Rate 61 01/16/22 07:18 Respiratory Rate 18 01/16/22 07:18 Blood Pressure 156/86 H 01/16/22 07:18 Pulse Oximetry 95 01/16/22 07:18 Oxygen Delivery Method 01/16/22 07:18 Temperature 97.8 F 01/16/22 07:18 Pulse Rate 60 01/16/22 11:38 Respiratory Rate 18 01/16/22 11:38 Blood Pressure 115/49 L 01/16/22 11:38 Pulse Oximetry 97 01/16/22 11:38 Oxygen Delivery Method 01/16/22 11:38 Oxygen Flow Rate 2 01/16/22 08:00 <Lars Hernandez MD - Last Filed: 01/23/22 08:59> Initial Vital Signs Temperature 97.8 F 01/16/22 07:18 Temperature Source Temporal Artery Scan 01/16/22 07:18 Pulse Rate 61 01/16/22 07:18 Respiratory Rate 18 01/16/22 07:18 Blood Pressure 156/86 H 01/16/22 07:18 Blood Pressure Mean 109 01/16/22 07:18 Blood Pressure Position Right Lateral 01/16/22 07:18 Pulse Oximetry 95 01/16/22 07:18 Oxygen Delivery Method 01/16/22 07:18 Vital Signs Temperature 97.8 F 01/16/22 07:18 Pulse Rate 61 01/16/22 07:18 Respiratory Rate 18 01/16/22 07:18 Blood Pressure 156/86 H 01/16/22 07:18 Pulse Oximetry 95 01/16/22 07:18 Oxygen Delivery Method 01/16/22 07:18 Temperature 97.8 F 01/16/22 07:18 Pulse Rate 60 01/16/22 11:38 Respiratory Rate 18 01/16/22 11:38 Blood Pressure 115/49 L 01/16/22 11:38 Pulse Oximetry 97 01/16/22 11:38 Oxygen Delivery Method 01/16/22 11:38 Oxygen Flow Rate 2 01/16/22 08:00 <Phylicia Li MD - Last Filed: 01/16/22 11:26> MDM - Back Pain/Injury MDM Narrative Medical decision making narrative: I think at this point, we need to do some laboratory tests, CBC basic coags as she is on warfarin, repeat urinalysis was also ordered. I will also do a lipase amylase and LFTs. Noncontrast CT was reassuring yesterday, but other possibilities have to be considered including, pulmonary embolism, renal infarction, mesenteric ischemic, pancreatitis, bowel infarction, other considerations which we looked at yesterday,. Life-threatening differential diagnosis considered include: Cauda equina an epidural abscess, other differential diagnosis considered includes sprain, contusion, nerve root entrapment, radiculopathy, muscle spasm, urolithiasis, lumbar fracture, pyelonephritis, appendicitis, biliary colic, as well as other etiologies. The patient denies saddle anesthesia bowel or bladder incontinence or lower extremity weakness, recent weight loss, or history of malignancy. Most of these diagnoses lease the early ones i.e. listed need to have contrast and she needs to get a basic and a kidney function before that can be done. We will start IV fluids, I will give her Dilaudid as the fentanyl in the EMS rig seemed to work better. I will give her some Zofran for nausea, she will be signed over to the oncoming ER physician for further delineation and treatment. <Lars Hernandez MD - Last Filed: 01/23/22 08:59> Medical Records Attestation: I reviewed the patient's medical records. <Lars Hernandez MD - Last Filed: 01/23/22 08:59> Lab Data Attestation: I reviewed the patient's lab results. <Phylicia Li MD - Last Filed: 01/16/22 11:26> Labs: Lab Results 01/16/22 01/16/22 01/16/22 Range/Units 08:00 08:00 08:00 WBC 10.49 (4.50-11.00) K/uL RBC 4.70 (4.00-5.20) m/uL Hgb 13.2 (12.0-16.0) gm/dL Hct 39.9 (33.0-51.0) % MCV 85 (80-100) fL MCH 28 (26-34) pg MCHC 33 (32-36) gm/dL RDW Coeff of Amberly 13.2 (11.5-15.5) % Plt Count 260 (140-440) K/uL Neut % (Auto) 86.8 H (42.0-72.0) % Lymph % (Auto) 7.2 L (20-44) % Gove % (Auto) 5.1 (0.0-11.0) % Eos % (Auto) 0.5 (0.0-7.0) % Baso % (Auto) 0.2 (0.0-3.0) % Neut # (Auto) 9.10 H (1.7-7.0) K/uL Lymph # (Auto) 0.80 L (0.90-2.90) K/uL Gove # (Auto) 0.50 (0.00-0.90) K/UL Eos # (Auto) 0.05 (0.00-0.50) K/uL Baso # (Auto) 0.02 (0.00-0.30) K/uL Abs Immat Gran (auto) 0.02 (0.00-0.30) K/uL INR (0.91-1.10) APTT (23-33) Seconds Sodium 139 (135-149) mmol/L Potassium 4.2 (3.6-5.1) mmol/L Chloride 107 (96-114) mmol/L Carbon Dioxide 23 (20-32) mmol/L BUN 14 (7-30) mg/dL Creatinine 0.6 (0.5-1.5) mg/dL Estimated Creat Clear 51.30 Estimated GFR 95 ml/min Glucose 255 H (60-115) mg/dL Calcium 8.6 (8.4-10.6) mg/dL Total Bilirubin 0.9 (0.1-1.5) mg/dL Direct Bilirubin 0.3 (0.0-0.5) mg/dL AST 16 (12-35) U/L ALT 12 (4-35) U/L Alkaline Phosphatase 70 (40-150) U/L C-Reactive Protein 4.6 H (0.5-1.0) mg/dL Total Protein 7.0 (6.0-8.3) g/dL Albumin 4.1 (3.3-5.0) g/dL Amylase 43 (18-89) U/L Lipase 17 L (23-300) U/L Urine Color (Yellow) Urine Appearance (Clear) Urine pH (5.0-8.5) Ur Specific [place] (1.000-1.030) Urine Protein (Negative) Urine Glucose (UA) (Negative) Urine Ketones (Negative) Urine Blood (Negative) Urine Nitrite (Negative) Urine Bilirubin (Negative) Urine Urobilinogen (0.2-1.0) Ur Leukocyte Esterase (Negative) Urine RBC (0-2) Urine WBC (0-5) Ur Squamous Epith Cells (None-Few) Urine Bacteria (None) Urine Mucus (None) SARS-CoV-2 (PCR) (Negative) 01/16/22 01/16/22 01/16/22 Range/Units 08:00 09:00 09:15 WBC (4.50-11.00) K/uL RBC (4.00-5.20) m/uL Hgb (12.0-16.0) gm/dL Hct (33.0-51.0) % MCV (80-100) fL MCH (26-34) pg MCHC (32-36) gm/dL RDW Coeff of Amberly (11.5-15.5) % Plt Count (140-440) K/uL Neut % (Auto) (42.0-72.0) % Lymph % (Auto) (20-44) % Gove % (Auto) (0.0-11.0) % Eos % (Auto) (0.0-7.0) % Baso % (Auto) (0.0-3.0) % Neut # (Auto) (1.7-7.0) K/uL Lymph # (Auto) (0.90-2.90) K/uL Gove # (Auto) (0.00-0.90) K/UL Eos # (Auto) (0.00-0.50) K/uL Baso # (Auto) (0.00-0.30) K/uL Abs Immat Gran (auto) (0.00-0.30) K/uL INR 2.45 H (0.91-1.10) APTT 51 H (23-33) Seconds Sodium (135-149) mmol/L Potassium (3.6-5.1) mmol/L Chloride (96-114) mmol/L Carbon Dioxide (20-32) mmol/L BUN (7-30) mg/dL Creatinine (0.5-1.5) mg/dL Estimated Creat Clear Estimated GFR ml/min Glucose (60-115) mg/dL Calcium (8.4-10.6) mg/dL Total Bilirubin (0.1-1.5) mg/dL Direct Bilirubin (0.0-0.5) mg/dL AST (12-35) U/L ALT (4-35) U/L Alkaline Phosphatase (40-150) U/L C-Reactive Protein (0.5-1.0) mg/dL Total Protein (6.0-8.3) g/dL Albumin (3.3-5.0) g/dL Amylase (18-89) U/L Lipase (23-300) U/L Urine Color Yellow (Yellow) Urine Appearance Clear (Clear) Urine pH 5.5 (5.0-8.5) Ur Specific [place] 1.020 (1.000-1.030) Urine Protein 1+ A (Negative) Urine Glucose (UA) 3+ A (Negative) Urine Ketones 1+ A (Negative) Urine Blood 2+ A (Negative) Urine Nitrite Negative (Negative) Urine Bilirubin Negative (Negative) Urine Urobilinogen 0.2 (0.2-1.0) Ur Leukocyte Esterase Negative (Negative) Urine RBC 10-25 A (0-2) Urine WBC 2-5 (0-5) Ur Squamous Epith Cells Few (None-Few) Urine Bacteria Few A (None) Urine Mucus Few A (None) SARS-CoV-2 (PCR) Negative SARS-CoV-2 (Negative) <Lars Hernandez MD - Last Filed: 01/23/22 08:59> Lab Results 01/16/22 01/16/22 01/16/22 Range/Units 08:00 08:00 08:00 WBC 10.49 (4.50-11.00) K/uL RBC 4.70 (4.00-5.20) m/uL Hgb 13.2 (12.0-16.0) gm/dL Hct 39.9 (33.0-51.0) % MCV 85 (80-100) fL MCH 28 (26-34) pg MCHC 33 (32-36) gm/dL RDW Coeff of Amberly 13.2 (11.5-15.5) % Plt Count 260 (140-440) K/uL Neut % (Auto) 86.8 H (42.0-72.0) % Lymph % (Auto) 7.2 L (20-44) % Gove % (Auto) 5.1 (0.0-11.0) % Eos % (Auto) 0.5 (0.0-7.0) % Baso % (Auto) 0.2 (0.0-3.0) % Neut # (Auto) 9.10 H (1.7-7.0) K/uL Lymph # (Auto) 0.80 L (0.90-2.90) K/uL Gove # (Auto) 0.50 (0.00-0.90) K/UL Eos # (Auto) 0.05 (0.00-0.50) K/uL Baso # (Auto) 0.02 (0.00-0.30) K/uL Abs Immat Gran (auto) 0.02 (0.00-0.30) K/uL INR (0.91-1.10) APTT (23-33) Seconds Sodium 139 (135-149) mmol/L Potassium 4.2 (3.6-5.1) mmol/L Chloride 107 (96-114) mmol/L Carbon Dioxide 23 (20-32) mmol/L BUN 14 (7-30) mg/dL Creatinine 0.6 (0.5-1.5) mg/dL Estimated Creat Clear 51.30 Estimated GFR 95 ml/min Glucose 255 H (60-115) mg/dL Calcium 8.6 (8.4-10.6) mg/dL Total Bilirubin 0.9 (0.1-1.5) mg/dL Direct Bilirubin 0.3 (0.0-0.5) mg/dL AST 16 (12-35) U/L ALT 12 (4-35) U/L Alkaline Phosphatase 70 (40-150) U/L C-Reactive Protein 4.6 H (0.5-1.0) mg/dL Total Protein 7.0 (6.0-8.3) g/dL Albumin 4.1 (3.3-5.0) g/dL Amylase 43 (18-89) U/L Lipase 17 L (23-300) U/L Urine Color (Yellow) Urine Appearance (Clear) Urine pH (5.0-8.5) Ur Specific [place] (1.000-1.030) Urine Protein (Negative) Urine Glucose (UA) (Negative) Urine Ketones (Negative) Urine Blood (Negative) Urine Nitrite (Negative) Urine Bilirubin (Negative) Urine Urobilinogen (0.2-1.0) Ur Leukocyte Esterase (Negative) Urine RBC (0-2) Urine WBC (0-5) Ur Squamous Epith Cells (None-Few) Urine Bacteria (None) Urine Mucus (None) SARS-CoV-2 (PCR) (Negative) 01/16/22 01/16/22 01/16/22 Range/Units 08:00 09:00 09:15 WBC (4.50-11.00) K/uL RBC (4.00-5.20) m/uL Hgb (12.0-16.0) gm/dL Hct (33.0-51.0) % MCV (80-100) fL MCH (26-34) pg MCHC (32-36) gm/dL RDW Coeff of Amberly (11.5-15.5) % Plt Count (140-440) K/uL Neut % (Auto) (42.0-72.0) % Lymph % (Auto) (20-44) % [place] % (Auto) (0.0-11.0) % Eos % (Auto) (0.0-7.0) % Baso % (Auto) (0.0-3.0) % Neut # (Auto) (1.7-7.0) K/uL Lymph # (Auto) (0.90-2.90) K/uL [place] # (Auto) (0.00-0.90) K/UL Eos # (Auto) (0.00-0.50) K/uL Baso # (Auto) (0.00-0.30) K/uL Abs Immat Gran (auto) (0.00-0.30) K/uL INR 2.45 H (0.91-1.10) APTT 51 H (23-33) Seconds Sodium (135-149) mmol/L Potassium (3.6-5.1) mmol/L Chloride (96-114) mmol/L Carbon Dioxide (20-32) mmol/L BUN (7-30) mg/dL Creatinine (0.5-1.5) mg/dL Estimated Creat Clear Estimated GFR ml/min Glucose (60-115) mg/dL Calcium (8.4-10.6) mg/dL Total Bilirubin (0.1-1.5) mg/dL Direct Bilirubin (0.0-0.5) mg/dL AST (12-35) U/L ALT (4-35) U/L Alkaline Phosphatase (40-150) U/L C-Reactive Protein (0.5-1.0) mg/dL Total Protein (6.0-8.3) g/dL Albumin (3.3-5.0) g/dL Amylase (18-89) U/L Lipase (23-300) U/L Urine Color Yellow (Yellow) Urine Appearance Clear (Clear) Urine pH 5.5 (5.0-8.5) Ur Specific [place] 1.020 (1.000-1.030) Urine Protein 1+ A (Negative) Urine Glucose (UA) 3+ A (Negative) Urine Ketones 1+ A (Negative) Urine Blood 2+ A (Negative) Urine Nitrite Negative (Negative) Urine Bilirubin Negative (Negative) Urine Urobilinogen 0.2 (0.2-1.0) Ur Leukocyte Esterase Negative (Negative) Urine RBC 10-25 A (0-2) Urine WBC 2-5 (0-5) Ur Squamous Epith Cells Few (None-Few) Urine Bacteria Few A (None) Urine Mucus Few A (None) SARS-CoV-2 (PCR) Negative SARS-CoV-2 (Negative) <Phylicia Li MD - Last Filed: 01/16/22 11:26> Imaging Data CT scan - abdomen: Attestation: I have reviewed the pertinent imaging results. <Phylicia Suarez MD - Last Filed: 01/16/22 11:26> Radiologist's impression: Patient: NARCISA DONNIE Facility:?[facility] Patient ID:?[id number] Site Patient ID:?[id number]. Site :?[id number] Study:?CT Abdomen/Pelvis W/ 130CC [id number]/1/2022 10:01:35 AM Ordering Physician:?Jen Whatley Final Report: INDICATION: Right flank pain, nausea, vomiting. TECHNIQUE: CT abdomen and pelvis acquired with 130 cc Isovue 3 7 IV contrast. COMPARISON: CT abdomen pelvis 01/15/2022. FINDINGS: Lower chest: Ground-glass opacities in the lung bases likely atelectasis. Cardiomegaly. Incompletely visualized pacemaker leads in the right atrium and right ventricle. Liver: Hepatomegaly with diffuse fatty infiltration. No focal lesion. Gallbladder and bile ducts: Gallbladder is surgically absent. No biliary ductal dilation. Pancreas: Unremarkable. No mass or inflammation. Spleen: Unremarkable. Normal in size. No masses. Adrenal glands: Unremarkable. No nodules. Kidneys: Unremarkable. No suspicious masses, stones, or hydronephrosis. Minimal layering hyperdensity in the dependent bladder may be small stones versus debris. GI tract: Colonic diverticulosis with no evidence of acute diverticulitis. No colonic wall thickening or pericolonic fat stranding. No small bowel dilation present postsurgical change of gastric sleeve. Appendix is not definitively visualized may be surgically absent. No secondary findings of appendicitis. There is small bowel within the ventral abdominal wall hernia otherwise normal in appearance. Vasculature: Aortoiliac atherosclerosis. No aneurysm. Mesenteric arteries are patent. Lymph nodes: No lymphadenopathy. Omentum/Peritoneum/Abdominal Wall: No free fluid or free air. Large ventral abdominal wall hernia containing fat and loops of small bowel without evidence of obstruction. No fluid in the hernia sac. Pelvis: Unremarkable. Bones: Unremarkable for age. IMPRESSION: 1. No evidence of acute intra-abdominal or pelvic abnormality. Appendix is not definitely visualized although no evidence of appendicitis present 6 2. No demonstrable stones or hydronephrosis. 3. Cardiomegaly. 4. Large ventral abdominal wall hernia containing loops of normal-appearing small bowel. No evidence of obstruction. 5. Hepatomegaly with diffuse fatty infiltration. 6. Postsurgical change of gastric sleeve and cholecystectomy. Please note that all CT scans at this facility use dose modulation, iterative reconstruction, and/or weight-based dosing when appropriate to reduce radiation dose to as low as reasonably achievable. Dictated by Chino Ferrer MD @ 01/16/2022 11:02:40 AM (Electronic Signature) <Phylicia Li MD - Last Filed: 01/16/22 11:26> CT- Other: Attestation: I have reviewed the pertinent imaging results. <Phylicia Suarez MD - Last Filed: 01/16/22 11:26> Radiologist's impression: Patient: NARCIAS FIELDS Facility:?[facility] Patient ID:?[id number] Site Patient ID:?[id number] Site :?[id number] Study:?CT Spine Lumbar W/O-01/16/2022 10:02:32 AM Ordering Physician:Julio C Whatley Final Report: Indication: Right flank pain. Technique: CT lumbar spine without contrast. Coronal and sagittal reformations were performed. Please note that all CT scans at this facility use dose modulation, iterative reconstruction, and/or weight-based dosing when appropriate to reduce radiation dose to as low as reasonably achievable. Comparison: CT abdomen and pelvis 01/16/[address] 02/13/2020. Findings: Five [id number] lumbar-type vertebral bodies. Minimal anterolisthesis of L4 on L5. Otherwise, alignment is normal. No evidence of fracture. Intervertebral disc heights are grossly preserved with minimal disc height loss at L4-5 and L5-S1. Mild facet degenerative changes bilaterally at L3-L4, L4-5, and L5-S1. Spiculated sclerotic lesion in the left iliac bone consistent with a bone island unchanged compared to CT from 2019. No abnormality in the paraspinal soft tissues. Impression: 1. No fracture or acute abnormality. 2. 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 <Phylicia Li MD - Last Filed: 01/16/22 11:26> Critical Care Time Critical Care Time Critical Care Time: No <Phylicia Li MD - Last Filed: 01/16/22 11:26> Discharge Plan Discharge Clinical Impression: Acute right flank pain <Lars Hernandez MD - Last Filed: 01/23/22 08:59> Condition: Stable <Lars Hernandez MD - Last Filed: 01/23/22 08:59> Instructions: Musculoskeletal Pain (ED), Flank Pain (ED) <Lars Hernandez MD - Last Filed: 01/23/22 08:59> Additional Instructions: Can take Tylenol 1000 mg up to 4 times a day for the next 7-10 days as needed for pain management. Can use the muscle relaxant prescribed as needed. Activity as tolerated. Can try ice or heat to the flank area and use whichever makes you feel better. Physical therapy referral provided and recommend that you call to get this scheduled. I also request that you schedule of follow-up with your primary clinic within the next 1-3 days for recheck. <Lars Hernandez MD - Last Filed: 01/23/22 08:59> Activity Level: Activity as Tolerated <Lars Hernandez MD - Last Filed: 01/23/22 08:59> Activity as Tolerated <Phylicia Li MD - Last Filed: 01/16/22 11:26> Prescriptions: New tizanidine 2 mg capsule 2 mg PO TID PRN (Reason: muscle spasticity) Qty: 30 0RF No Action metformin 500 mg tablet extended release 24 hr 1,000 mg PO BIDWMEAL Label Comments: TAKE TWO TABLETS (1000MG) BY MOUTH TWICE A DAY WITH MEALS tizanidine 2 mg tablet 2 mg PO TID PRN (Reason: muscle spasticity) Label Comments: TAKE ONE TABLET(2MG) BY MOUTH THREE TIMES A DAY NEEDED FOR MUSCLE SPASTICITY cholecalciferol (vitamin D3) 125 mcg (5,000 unit) capsule 5,000 unit PO DAILY acetaminophen 500 mg capsule 500 mg PO Q6H PRN acyclovir 400 mg tablet 400 mg PO BID albuterol sulfate [ProAir HFA] 90 mcg/actuation HFA aerosol inhaler 2 inh inhalation Q4H PRN balsalazide 750 mg capsule 2,250 mg PO TID cholecalciferol (vitamin D3) 50 mcg (2,000 unit) capsule 4,000 unit PO DAILY Label Comments: NOT TAKING furosemide 20 mg tablet 20 mg PO DAILY glipizide 5 mg tablet 7.5 mg PO BIDWM insulin glargine [Lantus Solostar U-100 Insulin] 100 unit/mL (3 mL) insulin pen 36 unit subcut DAILY ipratropium-albuterol 0.5 mg-3 mg(2.5 mg base)/3 mL solution for nebulization 3 ml inhalation Q6H metformin 500 mg tablet 500 mg PO BIDWMEAL Label Comments: NOT TAKING pseudoephedrine HCl 60 mg tablet 60 mg PO Q6H PRN simvastatin 40 mg tablet 40 mg PO QPM warfarin 2.5 mg tablet See Rx Instructions PO DAILY Rx Instructions: 2.5-5MG orally daily; 5mg MWF, 2.5mg all other days <Lars Hernandez MD - Last Filed: 01/23/22 08:59> Follow Up/Referrals: Tiny Perez MD [Primary Care Provider] - <Lars Hernandez MD - Last Filed: 01/23/22 08:59> [facility] <Lars Hernandez MD - Last Filed: 01/23/22 08:59>
[2022-01-16 08:00] VITALS: BP 156/86; PULSE 61; RESP 18; O2SAT 94
[2022-01-16] MEDS: 0.9 % SODIUM CHLORIDE 1000 ml 1,000 ML IV (08:04)
[2022-01-16] MEDS: HYDROmorphone 0.5 mg/0.5 ml inj IVP (08:05)
[2022-01-16] MEDS: ONDANSETRON 2 MG/ML inj 4 MG IVP ×2 (08:05→10:40)
[2022-01-16 08:09] LABS: Hematocrit 39.9 % (33.0-51.0); Hemoglobin* 13.2 gm/dL (12.0-16.0); Lymphocytes Percent Auto 7.2 % (20-44); Mean Corpuscular HGB Conc 33 gm/dL (32-36); Mean Corpuscular Hemoglobin 28 pg (26-34); Mean Corpuscular Volume 85 fL (80-100); Neutrophils Percent Auto 86.8 % (42.0-72.0); Platelet Count* 260 K/uL (140-440); RDW Coefficient of Variation % 13.2 % (11.5-15.5); White Blood Count* 10.49 K/uL (4.50-11.00)
[2022-01-16 08:10] LABS: Basophils Absolute Auto 0.02 K/uL (0.00-0.30); Basophils Percent Auto 0.2 % (0.0-3.0); Eosinophils Absolute Auto 0.05 K/uL (0.00-0.50); Eosinophils Percent Auto 0.5 % (0.0-7.0); Immature Granulocytes Abs Auto 0.02 K/uL (0.00-0.30); Monocytes Percent Auto 5.1 % (0.0-11.0); Slide Review Reflex No
[2022-01-16 08:24] LABS: Albumin* 4.1 g/dL (3.3-5.0)
[2022-01-16 08:25] LABS: INR 2.45 (0.91-1.10); Prothrombin Time 26.9 Seconds
[2022-01-16 08:26] LABS: Partial Thromboplastin Time* 51 Seconds (23-33)
[2022-01-16 08:27] LABS: Alkaline Phosphatase* 70 U/L (40-150); Aspartate Amino Transferase* 16 U/L (12-35); Bilirubin Direct* 0.3 mg/dL (0.0-0.5); Bilirubin Total* 0.9 mg/dL (0.1-1.5)
[2022-01-16 08:28] LABS: Alanine Aminotransferase* 12 U/L (4-35); Lipase* 17 U/L (23-300)
[2022-01-16 08:38] LABS: Chloride* 107 mmol/L (96-114); Potassium* 4.2 mmol/L (3.6-5.1); Sodium* 139 mmol/L (135-149)
[2022-01-16 08:40] LABS: Amylase* 43 U/L (18-89)
[2022-01-16 08:41] LABS: Blood Urea Nitrogen* 14 mg/dL (7-30); Carbon Dioxide* 23 mmol/L (20-32); Creatinine* 0.6 mg/dL (0.5-1.5); Estimated Glomerular Filt Rate 95 ml/min; Glucose* 255 mg/dL (60-115)
[2022-01-16 08:42] LABS: Calcium* 8.6 mg/dL (8.4-10.6)
[2022-01-16 08:44] LABS: C Reactive Protein* 4.6 mg/dL (0.5-1.0)
--- NOTE | 2022-01-16 08:59 | CRLHL7_ITS ---
For Patients: As a result of the Century Cures Act, medical imaging exams and procedure reports are released immediately into your electronic medical record. You may view this report before your referring provider. If you have questions, please contact your health care provider. INDICATION: Right flank pain, nausea, vomiting. TECHNIQUE: CT abdomen and pelvis acquired with 130 cc Isovue 3 7 IV contrast. COMPARISON: CT abdomen pelvis 01/15/2022. FINDINGS: Lower chest: Ground-glass opacities in the lung bases likely atelectasis. Cardiomegaly. Incompletely visualized pacemaker leads in the right atrium and right ventricle. Liver: Hepatomegaly with diffuse fatty infiltration. No focal lesion. Gallbladder and bile ducts: Gallbladder is surgically absent. No biliary ductal dilation. Pancreas: Unremarkable. No mass or inflammation. Spleen: Unremarkable. Normal in size. No masses. Adrenal glands: Unremarkable. No nodules. Kidneys: Unremarkable. No suspicious masses, stones, or hydronephrosis. Minimal layering hyperdensity in the dependent bladder may be small stones versus debris. GI tract: Colonic diverticulosis with no evidence of acute diverticulitis. No colonic wall thickening or pericolonic fat stranding. No small bowel dilation present postsurgical change of gastric sleeve. Appendix is not definitively visualized may be surgically absent. No secondary findings of appendicitis. There is small bowel within the ventral abdominal wall hernia otherwise normal in appearance. Vasculature: Aortoiliac atherosclerosis. No aneurysm. Mesenteric arteries are patent. Lymph nodes: No lymphadenopathy. Omentum/Peritoneum/Abdominal Wall: No free fluid or free air. Large ventral abdominal wall hernia containing fat and loops of small bowel without evidence of obstruction. No fluid in the hernia sac. Pelvis: Unremarkable. Bones: Unremarkable for age. IMPRESSION: 1. No evidence of acute intra-abdominal or pelvic abnormality. Appendix is not definitely visualized although no evidence of appendicitis present 6 2. No demonstrable stones or hydronephrosis. 3. Cardiomegaly. 4. Large ventral abdominal wall hernia containing loops of normal-appearing small bowel. No evidence of obstruction. 5. Hepatomegaly with diffuse fatty infiltration. 6. Postsurgical change of gastric sleeve and cholecystectomy. Please note that all CT scans at this facility use dose modulation, iterative reconstruction, and/or weight-based dosing when appropriate to reduce radiation dose to as low as reasonably achievable. Dictated by Chino Ferrer MD @ 01/16/2022 11:02:40 AM (Electronically Signed)
--- NOTE | 2022-01-16 09:04 | CRLHL7_ITS ---
For Patients: As a result of the Century Cures Act, medical imaging exams and procedure reports are released immediately into your electronic medical record. You may view this report before your referring provider. If you have questions, please contact your health care provider. Indication: Right flank pain. Technique: CT lumbar spine without contrast. Coronal and sagittal reformations were performed. Please note that all CT scans at this facility use dose modulation, iterative reconstruction, and/or weight-based dosing when appropriate to reduce radiation dose to as low as reasonably achievable. Comparison: CT abdomen and pelvis 01/16/[address] 02/13/2020. Findings: Five [id number]-[id number] lumbar-type vertebral bodies. Minimal anterolisthesis of L4 on L5. Otherwise, alignment is normal. No evidence of fracture. Intervertebral disc heights are grossly preserved with minimal disc height loss at L4-5 and L5-S1. Mild facet degenerative changes bilaterally at L3-L4, L4-5, and L5-S1. Spiculated sclerotic lesion in the left iliac bone consistent with a bone island unchanged compared to CT from 2019. No abnormality in the paraspinal soft tissues. Impression: 1. No fracture or acute abnormality. 2. 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 Please note that all CT scans at this facility use dose modulation, iterative reconstruction, and/or weight-based dosing when appropriate to reduce radiation dose to as low as reasonably achievable. Dictated by Chino Ferrer MD @ 01/16/2022 11:06:55 AM (Electronically Signed)
[2022-01-16 09:21] LABS: Appearance Urine Clear (Clear); Bilirubin Urine Negative (Negative); Blood Urine 2+ (Negative); Color Urine Yellow (Yellow); Glucose Urine 3+ (Negative); Ketones Urine 1+ (Negative); Leukocyte Esterase Urine Negative (Negative); Nitrite Urine Negative (Negative); Protein Urine 1+ (Negative); Urobilinogen Urine 0.2 (0.2-1.0); pH Urine 5.5 (5.0-8.5)
[2022-01-16 09:36] LABS: Bacteria Urine Few; Mucus Urine Few; Squamous Epithelial Cell Urine Few (None-Few)
[2022-01-16 10:12] LABS: SARS PCR* Negative SARS-CoV-2 (Negative)
[2022-01-16 11:38] VITALS: BP 115/49; PULSE 60; RESP 18; O2SAT 97
== END 2022-01-16 11:40 | disposition home or self-care (01) ==
PROVIDERS: Family Medicine; Emergency Provider Family Medicine; PCP Family Medicine
DX: R10.30 Lower abdominal pain, unspecified (principal); R11.0 Nausea
CPT/HCPCS: 36415; 72131; 74177; 80048; 80076; 81001; 82150; 83690; 85025; 85610; 85730; 86140; 87086; 87635; 96361; 96374; 96375; 96376; 99284; J1170; J2405; J7030; Q9967

== ENCOUNTER 2022-01-18 19:14 | Inpatient (IN) | payer OTHER, MEDICARE, SELFPAY ==
[2022-01-18] VITALS (12 sets, daily range): BP systolic 133–153; BP diastolic 70–77; PULSE 60–62; RESP 48; TEMP 36.9–37.3; O2SAT 84–98; BMI 36.8
--- NOTE | 2022-01-18 19:45 | CRLHL7_ITS ---
For Patients: As a result of the Century Cures Act, medical imaging exams and procedure reports are released immediately into your electronic medical record. You may view this report before your referring provider. If you have questions, please contact your health care provider. INDICATION: Hypoxia. TECHNIQUE: Chest 1 views. COMPARISON: Chest x-ray from 04/05/2019. FINDINGS: Lungs: Evaluation is notably limited by patient body habitus, portable technique, and underpenetration. The upper lungs are grossly clear. The lower lungs are obscured. Pleura: No obvious pleural effusion. Heart and Mediastinum: The heart appears enlarged. Dual lead pacemaker has its battery pack in the left chest wall. The vessels are unremarkable. Bones: Unremarkable. IMPRESSION: Notably limited evaluation. Grossly clear upper lungs. Dictated by Sina Lai MD @ 01/18/2022 8:53:54 PM (Electronically Signed)
[2022-01-18 20:10] LABS: Basophils Percent Auto 0.3 % (0.0-3.0); Immature Granulocytes Abs Auto 0.03 K/uL (0.00-0.30); Lactate* 1.7 mmol/L (0.5-1.9); Lymphocytes Percent Auto 5.1 % (20-44); Mean Corpuscular HGB Conc 33 gm/dL (32-36); Mean Corpuscular Hemoglobin 28 pg (26-34); Mean Corpuscular Volume 84 fL (80-100); Monocytes Percent Auto 9.2 % (0.0-11.0); Neutrophils Percent Auto 85.1 % (42.0-72.0); Platelet Count* 231 K/uL (140-440); RDW Coefficient of Variation % 13.1 % (11.5-15.5); Red Blood Count 4.62 m/uL (4.00-5.20); White Blood Count* 11.14 K/uL (4.50-11.00)
[2022-01-18 20:14] LABS: Albumin* 3.7 g/dL (3.3-5.0); Chloride* 98 mmol/L (96-114)
[2022-01-18 20:15] LABS: Potassium* 4.1 mmol/L (3.6-5.1); Sodium* 130 mmol/L (135-149)
[2022-01-18 20:17] LABS: Alkaline Phosphatase* 70 U/L (40-150); Aspartate Amino Transferase* 35 U/L (12-35); Bilirubin Total* 1.6 mg/dL (0.1-1.5); Carbon Dioxide* 20 mmol/L (20-32); Estimated Glomerular Filt Rate 60 ml/min; Slide Review Reflex No
[2022-01-18 20:18] LABS: Alanine Aminotransferase* 18 U/L (4-35); Blood Urea Nitrogen* 26 mg/dL (7-30); Lipase* 23 U/L (23-300)
--- NOTE | 2022-01-18 20:23 | ED_ITS ---
HPI - General Adult General Date Seen: 01/18/22 <Phylicia Li MD - Last Filed: 01/18/22 21:53> Chief complaint: Altered Mental Status <Phylicia Li MD - Last Filed: 01/18/22 21:53> Stated complaint: BACK PAIN,MOVING TO FRONT RIGHT <Phylicia Li MD - Last Filed: 01/18/22 21:53> Time Seen by Provider: 01/18/22 19:44 <Phylicia Li MD - Last Filed: 01/18/22 21:53> Source: patient, RN notes reviewed and old records reviewed <Phylicia Suarez MD - Last Filed: 01/18/22 21:53> Limitations: altered mental status (Patient is easily arousable, seems tired however and definitely confused) <Phylicia Li MD - Last Filed: 01/18/22 21:53> History of Present Illness HPI narrative: Patient was seen on arrival at request of nursing staff for hypoxia. O2 sats were in the mid to lower 80s. Patient was brought back in by son. She had been seen twice on overnight Thursday to morning January 15 to January 16. I actually discharge her after a normal abdomen pelvis with IV contrast on January 16. She was complaining of flank pain, initially had a normal CT abdomen pelvis noncontrast her 1st visit in the ER. Her 2nd visit she had abdomen and pelvis CT with IV contrast, reconstruction of her lumbar spine. She had started vomiting but had been given narcotics. She is confused in her son corroborates that. 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 She has staff coming in to help her and they have been largely doing the cares. Reportedly went home and went to bed. She reportedly continued to have the right flank pain that did not improve with pain management nor the tizanidine. She did drink some but really has not been thought to eat much. She initially said she did still have her gallbladder but was able to recant that. Son noted she started complaining of the pain moving around to the front of her flank/abdomen area. She has had laboratory evaluation, 2 CTs, lumbar CT. On specific questioning when I saw her prior, she had no respiratory symptoms nor pleuritic component to her pain. There was no rash noted. <Phylicia Li MD - Last Filed: 01/18/22 21:53> Related Data Home medications: Home Medications Medication Instructions Recorded Confirmed acetaminophen 500 mg capsule 500 mg PO Q6H PRN 11/14/21 01/18/22 acyclovir 400 mg tablet 400 mg PO BID 11/14/21 01/18/22 albuterol sulfate 90 mcg/actuation 2 inh inhalation Q4H PRN 11/14/21 01/18/22 aerosol inhaler (ProAir HFA) balsalazide 750 mg capsule 2,250 mg PO TID 11/14/21 01/18/22 cholecalciferol (vitamin D3) 50 4,000 unit PO DAILY 11/14/21 01/18/22 mcg (2,000 unit) capsule furosemide 20 mg tablet 20 mg PO DAILY 11/14/21 01/18/22 glipizide 5 mg tablet 7.5 mg PO BIDWM 11/14/21 01/18/22 insulin glargine 100 unit/mL (3 36 unit subcut DAILY 11/14/21 01/18/22 mL) subcutaneous pen (Lantus Solostar U-100 Insulin) ipratropium 0.5 mg-albuterol 3 mg 3 ml inhalation Q6H 11/14/21 01/18/22 (2.5 mg base)/3 mL nebulization soln metformin 500 mg tablet 500 mg PO BIDWMEAL 11/14/21 01/18/22 pseudoephedrine HCl 60 mg tablet 60 mg PO Q6H PRN 11/14/21 01/18/22 simvastatin 40 mg tablet 40 mg PO QPM 11/14/21 01/18/22 warfarin 2.5 mg tablet 2.5 mg PO DAILY 11/14/21 01/18/22 Previous Rx's Medication Instructions Recorded tizanidine 2 mg capsule 2 mg PO TID PRN muscle spasticity 01/16/22 #30 caps <Phylicia Li MD - Last Filed: 01/18/22 21:53> Allergies/adverse reactions: Allergies Allergy/AdvReac Type Severity Reaction Status Date / Time aspirin Allergy Mild Verified 01/18/22 19:38 dapagliflozin Allergy Unknown Verified 01/18/22 19:38 erythromycin base Allergy Unknown Verified 01/18/22 19:38 <Phylicia Li MD - Last Filed: 01/18/22 21:53> Review of Systems Narrative: Patient is confused, history is largely provided by her son. 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) History of vitamin D deficiency Hyperlipidemia Incisional hernia Malaise Melena Morbid obesity with BMI of 40.0-44.9, adult Osteoarthritis of shoulder Regional enteritis Type 2 diabetes mellitus Upper respiratory tract infection Venous stasis of both lower extremities <Phylicia Li MD - Last Filed: 01/18/22 21:53> Surgical History: Surgical History (Updated 01/19/22 @ 01:17 by Kati Kilpatrick MD) H/O rectal polypectomy History of section History of esophagogastroduodenoscopy (EGD) (02/22/18) History of laparoscopic partial gastrectomy (~03/2018) Hx of appendectomy Hx of cholecystectomy <Phylicia Li MD - Last Filed: 01/18/22 21:53> Family History: Family History (Updated 01/19/22 @ 01:18 by Kati Kilpatrick MD) Father Prostate cancer Mother Diabetes Coronary artery disease <Phylicia Li MD - Last Filed: 01/18/22 21:53> Social History: Social History Smoking Status: Never smoker How often do you have a drink containing alcohol: never AUDIT-C Alcohol total score: 0 Non-prescribed substance use: denies use Caffeine: Yes (a few cans per day) service: No <Phylicia Li MD - Last Filed: 01/18/22 21:53> Exam Narrative: Exam Narrative: Patient is awake, seems tired and certainly is confused. <Phylicia Suarez MD - Last Filed: 01/18/22 21:53> Const: Vital Signs, click to edit/add: Vital Signs - 24 hr 01/18/22 19:32 01/18/22 19:51 01/18/22 20:35 Temperature 98.4 F Pulse Rate Pulse Rate [Left P ulse Oximeter] 60 Respiratory Rate 48 H Blood Pressure Blood Pressure [Le ft Upper Arm] 148/77 H Pulse Oximetry 84 L 85 L 91 Oxygen Delivery Me thod Room Air Room Air Room Air Oxygen Flow Rate 2 01/18/22 20:30 01/18/22 20:24 01/18/22 20:30 Temperature 99.1 F Pulse Rate 61 60 Pulse Rate [Left P ulse Oximeter] Respiratory Rate Blood Pressure Blood Pressure [Le ft Upper Arm] Pulse Oximetry 94 91 Oxygen Delivery Me thod Oxygen Flow Rate 01/18/22 20:31 01/18/22 21:01 01/18/22 21:02 Temperature Pulse Rate 62 60 60 Pulse Rate [Left P ulse Oximeter] Respiratory Rate Blood Pressure 149/70 H 153/73 H Blood Pressure [Le ft Upper Arm] Pulse Oximetry 92 92 93 Oxygen Delivery Me thod Oxygen Flow Rate 01/19/22 00:00 01/18/22 22:15 01/18/22 22:16 Temperature 99.1 F Pulse Rate 62 62 Pulse Rate [Left P ulse Oximeter] 60 Respiratory Rate 35 H Blood Pressure 142/71 H Blood Pressure [Le ft Upper Arm] 140/70 H Pulse Oximetry 93 95 94 Oxygen Delivery Me thod BiPAP Oxygen Flow Rate 01/18/22 23:38 01/18/22 23:39 Temperature Pulse Rate 60 60 Pulse Rate [Left P ulse Oximeter] Respiratory Rate Blood Pressure 133/70 Blood Pressure [Le ft Upper Arm] Pulse Oximetry 98 97 Oxygen Delivery Me thod Oxygen Flow Rate <Phylicia Li MD - Last Filed: 01/18/22 21:53> Vital Signs, click to edit/add: Vital Signs - 24 hr 01/18/22 19:32 01/18/22 19:51 01/18/22 20:35 Temperature 98.4 F Pulse Rate Pulse Rate [Left P ulse Oximeter] 60 Respiratory Rate 48 H Blood Pressure Blood Pressure [Le ft Upper Arm] 148/77 H Pulse Oximetry 84 L 85 L 91 Oxygen Delivery Me thod Room Air Room Air Room Air Oxygen Flow Rate 2 01/18/22 20:30 01/18/22 20:24 01/18/22 20:30 Temperature 99.1 F Pulse Rate 61 60 Pulse Rate [Left P ulse Oximeter] Respiratory Rate Blood Pressure Blood Pressure [Le ft Upper Arm] Pulse Oximetry 94 91 Oxygen Delivery Me thod Oxygen Flow Rate 01/18/22 20:31 01/18/22 21:01 01/18/22 21:02 Temperature Pulse Rate 62 60 60 Pulse Rate [Left P ulse Oximeter] Respiratory Rate Blood Pressure 149/70 H 153/73 H Blood Pressure [Le ft Upper Arm] Pulse Oximetry 92 92 93 Oxygen Delivery Me thod Oxygen Flow Rate 01/19/22 00:00 01/18/22 22:15 01/18/22 22:16 Temperature 99.1 F Pulse Rate 62 62 Pulse Rate [Left P ulse Oximeter] 60 Respiratory Rate 35 H Blood Pressure 142/71 H Blood Pressure [Le ft Upper Arm] 140/70 H Pulse Oximetry 93 95 94 Oxygen Delivery Me thod BiPAP Oxygen Flow Rate 01/18/22 23:38 01/18/22 23:39 Temperature Pulse Rate 60 60 Pulse Rate [Left P ulse Oximeter] Respiratory Rate Blood Pressure 133/70 Blood Pressure [Le ft Upper Arm] Pulse Oximetry 98 97 Oxygen Delivery Me thod Oxygen Flow Rate <Noble Dooley MD - Last Filed: 01/19/22 07:48> Documenting provider has reviewed patient's vital signs: yes <Phylicia Li MD - Last Filed: 01/18/22 21:53> Common normals: no apparent distress <Phylicia Li MD - Last Filed: 01/18/22 21:53> General appearance: cooperative and comfortable <Phylicia Li MD - Last Filed: 01/18/22 21:53> Nutritional appearance: obese <Phylicia Li MD - Last Filed: 01/18/22 21:53> Orientation/consciousness: Yes awake and Yes confused <Phylicia Suarez MD - Last Filed: 01/18/22 21:53> HENMT: Common normals: normocephalic, head/scalp atraumatic, hearing grossly normal bilaterally, external ears normal, external nose normal and nasal mucous membranes and turbinates normal <Phylicia Li MD - Last Filed: 01/18/22 21:53> Head and scalp: normocephalic and atraumatic <Phylicia Li MD - Last Filed: 01/18/22 21:53> Nose: external nose normal and nasal mucous membranes and turbinates normal <Phylicia Li MD - Last Filed: 01/18/22 21:53> External ear: external ears normal <Phylicia Li MD - Last Filed: 01/18/22 21:53> Mouth: moist mucous membranes abnormal (Lips are cracked, tongue and mucous membranes are dry) <Phylicia Li MD - Last Filed: 01/18/22 21:53> Eye: Common normals: PERRL, EOMs intact bilaterally, conjunctivae normal and no scleral icterus <Phylicia Li MD - Last Filed: 01/18/22 21:53> Conjunctiva: conjunctiva(e) normal <Phylicia Li MD - Last Filed: 01/18/22 21:53> Pupil: PERRL <MD Mercedes Varghese Last Filed: 01/18/22 21:53> Neck & C-Spine: Common normals: full ROM, no lymphadenopathy, supple and no meningeal signs <MD Mercedes Varghese Last Filed: 01/18/22 21:53> Resp: Common normals: clear to auscultation bilaterally (Rapid shallow breathing noted, I do not hear crackles.) <Phylicia Li MD - Last Filed: 01/18/22 21:53> Effort & inspection: tachypneic <Phylicia Li MD - Last Filed: 01/18/22 21:53> Auscultation: clear to auscultation bilaterally (Rapid shallow breathing noted, I do not hear crackles.) <Phylicia Li MD - Last Filed: 01/18/22 21:53> Cardio: Common normals: regular rate, regular rhythm, S1 normal heart sound, S2 normal heart sound, no gallops, no clicks and no murmurs <Phylicia Li MD - Last Filed: 01/18/22 21:53> Rate: regular rate <Phylicia Li MD - Last Filed: 01/18/22 21:53> Rhythm: regular rhythm <Phylicia Li MD - Last Filed: 01/18/22 21:53> Heart sounds: S1 normal and S2 normal <Phylicia Li MD - Last Filed: 01/18/22 21:53> GI: Other: Abdomen is obese. She does not seem to have any tenderness. When asked her where she is hurting in her abdomen she starts poking around but does not seem to be able to find the spot. I do note that she does go to the right upper quadrant however. I do not feel any organomegaly but patient's body habitus does make examination difficult. <Phylicia Li MD - Last Filed: 01/18/22 21:53> Neuro: Sensorium/orientation: awake <Phylicia Li MD - Last Filed: 01/18/22 21:53> Meningeal signs: no meningeal signs <Phylicia Li MD - Last Filed: 01/18/22 21:53> Course Course Hospital Course: This patient is obviously ill. She is responding nicely to 2 L nasal cannula oxygen. This certainly makes me more concerned for a respiratory issue in a do think that this is likely infectious. She could be developing a sepsis like picture and thus will consider full organ systems not just respiratory. Did attempt to get a portable chest x-ray quickly but the exposure is actually a not very good. Thus we will proceed with CT of her chest, will do PE protocol given the hypoxia. Not as likely being on Coumadin but we do not know where her INR is currently. Am doubtful that we missed anything with the abdominal imaging it has been done twice recently. Thus, I do wonder if her symptomatology is stemming from something respiratory in nature. We will do another COVID test on her as well. <Phylicia Li MD - Last Filed: 01/18/22 21:53> Reevaluation(s) Reevaluation #1: Had ordered Zosyn for concern of infectious etiology with the procalcitonin coming back elevated. Have subsequently found that her C-reactive protein is escalating significantly. We are waiting chest abdomen pelvis imaging. <Phylicia Li MD - Last Filed: 01/18/22 21:53> Time: 21:15 <Phylicia Li MD - Last Filed: 01/18/22 21:53> Reevaluation #2: Assumed care of patient at change of shift. Year old female who has been seen a couple of times for flank pain, once for nausea vomiting, and now with and continued pain. On initial arrival, hypoxic and tachypneic. Operations improved on oxygen by nasal cannula. Labs so far demonstrate leukocytosis and elevated CRP, negative COVID test, basic panel significant for hyperglycemia but otherwise reassuring. Full troponin slightly elevated at 0.23, this is like and and not acute coronary syndrome, repeat troponin 0.25. BNP is elevated and CT scan personally reviewed by me demonstrates bilateral pleural effusions worse on the right. Gentle fluid was given. Procalcitonin elevated lactate normal, Zosyn initiated by prior provider. Patient will need to be admitted but will wait for CT resolved prior to admission. <Noble Dooley MD - Last Filed: 01/19/22 07:48> Time: 22:50 <Noble Dooley MD - Last Filed: 01/19/22 07:48> Reevaluation #3: Patient rechecked, still having some increased work of breathing but oxygen 95-98% on 2 L nasal cannula. Discussed results of testing so far. Patient initially seen with right flank pain is found today she does have some anterior abdominal pain which likely is related to review what night her inc reased shortness of breath is likely secondary to pleural effusions and possibly some congestive heart failure, this could be related to fluid boluses given and recent emergency department visits. Lasix IV is ordered. For further evaluation and treatment. Dr. Kilpatrick department and discussed admission. Due to ongoing tachypnea and finding of congestive heart failure, BiPAP will be initiated <Noble Dooley MD - Last Filed: 01/19/22 07:48> Time: 23:05 <Noble Dooley MD - Last Filed: 01/19/22 07:48> Vital Signs Vital signs: Initial Vital Signs Temperature 98.4 F 01/18/22 19:32 Temperature Source Temporal Artery Scan 01/18/22 19:32 Pulse Rate 60 01/18/22 19:32 Respiratory Rate 48 H 01/18/22 19:32 Blood Pressure 148/77 H 01/18/22 19:32 Blood Pressure Mean 100 01/18/22 19:32 Blood Pressure Position Supine 01/18/22 19:32 Pulse Oximetry 84 L 01/18/22 19:32 Oxygen Delivery Method 01/18/22 19:32 Vital Signs Temperature 98.4 F 01/18/22 19:32 Pulse Rate 60 01/18/22 19:32 Respiratory Rate 48 H 01/18/22 19:32 Blood Pressure 148/77 H 01/18/22 19:32 Pulse Oximetry 84 L 01/18/22 19:32 Oxygen Delivery Method 01/18/22 19:32 Temperature 97.8 F 01/19/22 03:00 Pulse Rate 60 01/19/22 07:32 Respiratory Rate 37 H 01/19/22 03:00 Blood Pressure 141/67 H 01/19/22 03:00 Pulse Oximetry 93 01/19/22 03:00 Oxygen Delivery Method 01/19/22 03:00 Oxygen Flow Rate 30 01/19/22 03:00 Fraction of Inspired Oxygen 30 01/19/22 03:00 <Phylicia Li MD - Last Filed: 01/18/22 21:53> Initial Vital Signs Temperature 98.4 F 01/18/22 19:32 Temperature Source Temporal Artery Scan 01/18/22 19:32 Pulse Rate 60 01/18/22 19:32 Respiratory Rate 48 H 01/18/22 19:32 Blood Pressure 148/77 H 01/18/22 19:32 Blood Pressure Mean 100 01/18/22 19:32 Blood Pressure Position Supine 01/18/22 19:32 Pulse Oximetry 84 L 01/18/22 19:32 Oxygen Delivery Method 01/18/22 19:32 Vital Signs Temperature 98.4 F 01/18/22 19:32 Pulse Rate 60 01/18/22 19:32 Respiratory Rate 48 H 01/18/22 19:32 Blood Pressure 148/77 H 01/18/22 19:32 Pulse Oximetry 84 L 01/18/22 19:32 Oxygen Delivery Method 01/18/22 19:32 Temperature 97.8 F 01/19/22 03:00 Pulse Rate 60 01/19/22 07:32 Respiratory Rate 37 H 01/19/22 03:00 Blood Pressure 141/67 H 01/19/22 03:00 Pulse Oximetry 93 01/19/22 03:00 Oxygen Delivery Method 01/19/22 03:00 Oxygen Flow Rate 30 01/19/22 03:00 Fraction of Inspired Oxygen 30 01/19/22 03:00 <Noble Dooley MD - Last Filed: 01/19/22 07:48> Medical Decision Making Lab Data Lab results reviewed: Yes I reviewed the patient's lab results <Phylicia Li MD - Last Filed: 01/18/22 21:53> Lab results narrative: C reactive protein has grossly escalated from January 16. Procalcitonin is elevated as well in the recommending antibiotic range. <Phylicia Li MD - Last Filed: 01/18/22 21:53> Labs: Lab Results 01/18/22 01/18/22 01/18/22 Range/Units 19:40 19:40 19:40 WBC 11.14 H (4.50-11.00) K/uL RBC 4.62 (4.00-5.20) m/uL Hgb 13.0 (12.0-16.0) gm/dL Hct 39.0 (33.0-51.0) % MCV 84 (80-100) fL MCH 28 (26-34) pg MCHC 33 (32-36) gm/dL RDW Coeff of Amberly 13.1 (11.5-15.5) % Plt Count 231 (140-440) K/uL Neut % (Auto) 85.1 H (42.0-72.0) % Lymph % (Auto) 5.1 L (20-44) % [place] % (Auto) 9.2 (0.0-11.0) % Eos % (Auto) 0.0 (0.0-7.0) % Baso % (Auto) 0.3 (0.0-3.0) % Neut # (Auto) 9.50 H (1.7-7.0) K/uL Lymph # (Auto) 0.60 L (0.90-2.90) K/uL [place] # (Auto) 1.00 H (0.00-0.90) K/UL Eos # (Auto) 0.00 (0.00-0.50) K/uL Baso # (Auto) 0.00 (0.00-0.30) K/uL Abs Immat Gran (auto) 0.03 (0.00-0.30) K/uL INR (0.91-1.10) VBG pH (7.32-7.43) VBG pCO2 (40-50) mmHG VBG pO2 (25-47) mmHG VBG HCO3 (21-28) mmol/L Sodium 130 L (135-149) mmol/L Potassium 4.1 (3.6-5.1) mmol/L Chloride 98 (96-114) mmol/L Carbon Dioxide 20 (20-32) mmol/L BUN 26 (7-30) mg/dL Creatinine 1.0 (0.5-1.5) mg/dL Estimated Creat Clear 51.30 Estimated GFR 60 ml/min Glucose 369 H* (60-115) mg/dL Lactate 1.7 (0.5-1.9) mmol/L Calcium 8.0 L (8.4-10.6) mg/dL Total Bilirubin 1.6 H (0.1-1.5) mg/dL AST 35 (12-35) U/L ALT 18 (4-35) U/L Alkaline Phosphatase 70 (40-150) U/L Troponin I 0.23 H* (0.01-0.04) ng/mL C-Reactive Protein 18.1 H (0.5-1.0) mg/dL NT-Pro-B Natriuret Pep 4310 H (0-125) PG/mL Total Protein 7.0 (6.0-8.3) g/dL Albumin 3.7 (3.3-5.0) g/dL Lipase 23 (23-300) U/L Procalcitonin (<0.50) ng/mL Urine Color (Yellow) Urine Appearance (Clear) Urine pH (5.0-8.5) Ur Specific Sutton (1.000-1.030) Urine Protein (Negative) Urine Glucose (UA) (Negative) Urine Ketones (Negative) Urine Blood (Negative) Urine Nitrite (Negative) Urine Bilirubin (Negative) Urine Urobilinogen (0.2-1.0) Ur Leukocyte Esterase (Negative) Urine RBC (0-2) Urine WBC (0-5) Ur Squamous Epith Cells (None-Few) Urine Bacteria (None) Coarse Granular Casts (None) SARS-CoV-2 (PCR) (Negative) 01/18/22 01/18/22 01/18/22 Range/Units 19:40 19:40 20:15 WBC (4.50-11.00) K/uL RBC (4.00-5.20) m/uL Hgb (12.0-16.0) gm/dL Hct (33.0-51.0) % MCV (80-100) fL MCH (26-34) pg MCHC (32-36) gm/dL RDW Coeff of Amberly (11.5-15.5) % Plt Count (140-440) K/uL Neut % (Auto) (42.0-72.0) % Lymph % (Auto) (20-44) % [place] % (Auto) (0.0-11.0) % Eos % (Auto) (0.0-7.0) % Baso % (Auto) (0.0-3.0) % Neut # (Auto) (1.7-7.0) K/uL Lymph # (Auto) (0.90-2.90) K/uL [place] # (Auto) (0.00-0.90) K/UL Eos # (Auto) (0.00-0.50) K/uL Baso # (Auto) (0.00-0.30) K/uL Abs Immat Gran (auto) (0.00-0.30) K/uL INR 1.84 H (0.91-1.10) VBG pH (7.32-7.43) VBG pCO2 (40-50) mmHG VBG pO2 (25-47) mmHG VBG HCO3 (21-28) mmol/L Sodium (135-149) mmol/L Potassium (3.6-5.1) mmol/L Chloride (96-114) mmol/L Carbon Dioxide (20-32) mmol/L BUN (7-30) mg/dL Creatinine (0.5-1.5) mg/dL Estimated Creat Clear Estimated GFR ml/min Glucose (60-115) mg/dL Lactate (0.5-1.9) mmol/L Calcium (8.4-10.6) mg/dL Total Bilirubin (0.1-1.5) mg/dL AST (12-35) U/L ALT (4-35) U/L Alkaline Phosphatase (40-150) U/L Troponin I (0.01-0.04) ng/mL C-Reactive Protein (0.5-1.0) mg/dL NT-Pro-B Natriuret Pep (0-125) PG/mL Total Protein (6.0-8.3) g/dL Albumin (3.3-5.0) g/dL Lipase (23-300) U/L Procalcitonin 0.71 H (<0.50) ng/mL Urine Color (Yellow) Urine Appearance (Clear) Urine pH (5.0-8.5) Ur Specific Sutton (1.000-1.030) Urine Protein (Negative) Urine Glucose (UA) (Negative) Urine Ketones (Negative) Urine Blood (Negative) Urine Nitrite (Negative) Urine Bilirubin (Negative) Urine Urobilinogen (0.2-1.0) Ur Leukocyte Esterase (Negative) Urine RBC (0-2) Urine WBC (0-5) Ur Squamous Epith Cells (None-Few) Urine Bacteria (None) Coarse Granular Casts (None) SARS-CoV-2 (PCR) Negative SARS-CoV-2 (Negative) 01/18/22 01/18/22 01/18/22 Range/Units 20:20 22:01 22:20 WBC (4.50-11.00) K/uL RBC (4.00-5.20) m/uL Hgb (12.0-16.0) gm/dL Hct (33.0-51.0) % MCV (80-100) fL MCH (26-34) pg MCHC (32-36) gm/dL RDW Coeff of Amberly (11.5-15.5) % Plt Count (140-440) K/uL Neut % (Auto) (42.0-72.0) % Lymph % (Auto) (20-44) % [place] % (Auto) (0.0-11.0) % Eos % (Auto) (0.0-7.0) % Baso % (Auto) (0.0-3.0) % Neut # (Auto) (1.7-7.0) K/uL Lymph # (Auto) (0.90-2.90) K/uL [place] # (Auto) (0.00-0.90) K/UL Eos # (Auto) (0.00-0.50) K/uL Baso # (Auto) (0.00-0.30) K/uL Abs Immat Gran (auto) (0.00-0.30) K/uL INR (0.91-1.10) VBG pH 7.386 (7.32-7.43) VBG pCO2 35 L (40-50) mmHG VBG pO2 46.4 (25-47) mmHG VBG HCO3 21 (21-28) mmol/L Sodium (135-149) mmol/L Potassium (3.6-5.1) mmol/L Chloride (96-114) mmol/L Carbon Dioxide (20-32) mmol/L BUN (7-30) mg/dL Creatinine (0.5-1.5) mg/dL Estimated Creat Clear Estimated GFR ml/min Glucose (60-115) mg/dL Lactate (0.5-1.9) mmol/L Calcium (8.4-10.6) mg/dL Total Bilirubin (0.1-1.5) mg/dL AST (12-35) U/L ALT (4-35) U/L Alkaline Phosphatase (40-150) U/L Troponin I 0.25 H* (0.01-0.04) ng/mL C-Reactive Protein (0.5-1.0) mg/dL NT-Pro-B Natriuret Pep (0-125) PG/mL Total Protein (6.0-8.3) g/dL Albumin (3.3-5.0) g/dL Lipase (23-300) U/L Procalcitonin (<0.50) ng/mL Urine Color Yellow (Yellow) Urine Appearance Slightly Cloudy A (Clear) Urine pH 5.5 (5.0-8.5) Ur Specific Sutton 1.020 (1.000-1.030) Urine Protein 3+ A (Negative) Urine Glucose (UA) 3+ A (Negative) Urine Ketones 1+ A (Negative) Urine Blood 3+ A (Negative) Urine Nitrite Negative (Negative) Urine Bilirubin 1+ A (Negative) Urine Urobilinogen 1.0 (0.2-1.0) Ur Leukocyte Esterase Negative (Negative) Urine RBC 0-2 (0-2) Urine WBC 0-2 (0-5) Ur Squamous Epith Cells Few (None-Few) Urine Bacteria None (None) Coarse Granular Casts Moderate A (None) SARS-CoV-2 (PCR) (Negative) <Phylicia Li MD - Last Filed: 01/18/22 21:53> Lab Results 01/18/22 01/18/22 01/18/22 Range/Units 19:40 19:40 19:40 WBC 11.14 H (4.50-11.00) K/uL RBC 4.62 (4.00-5.20) m/uL Hgb 13.0 (12.0-16.0) gm/dL Hct 39.0 (33.0-51.0) % MCV 84 (80-100) fL MCH 28 (26-34) pg MCHC 33 (32-36) gm/dL RDW Coeff of Amberly 13.1 (11.5-15.5) % Plt Count 231 (140-440) K/uL Neut % (Auto) 85.1 H (42.0-72.0) % Lymph % (Auto) 5.1 L (20-44) % [place] % (Auto) 9.2 (0.0-11.0) % Eos % (Auto) 0.0 (0.0-7.0) % Baso % (Auto) 0.3 (0.0-3.0) % Neut # (Auto) 9.50 H (1.7-7.0) K/uL Lymph # (Auto) 0.60 L (0.90-2.90) K/uL [place] # (Auto) 1.00 H (0.00-0.90) K/UL Eos # (Auto) 0.00 (0.00-0.50) K/uL Baso # (Auto) 0.00 (0.00-0.30) K/uL Abs Immat Gran (auto) 0.03 (0.00-0.30) K/uL INR (0.91-1.10) VBG pH (7.32-7.43) VBG pCO2 (40-50) mmHG VBG pO2 (25-47) mmHG VBG HCO3 (21-28) mmol/L Sodium 130 L (135-149) mmol/L Potassium 4.1 (3.6-5.1) mmol/L Chloride 98 (96-114) mmol/L Carbon Dioxide 20 (20-32) mmol/L BUN 26 (7-30) mg/dL Creatinine 1.0 (0.5-1.5) mg/dL Estimated Creat Clear 51.30 Estimated GFR 60 ml/min Glucose 369 H* (60-115) mg/dL Lactate 1.7 (0.5-1.9) mmol/L Calcium 8.0 L (8.4-10.6) mg/dL Total Bilirubin 1.6 H (0.1-1.5) mg/dL AST 35 (12-35) U/L ALT 18 (4-35) U/L Alkaline Phosphatase 70 (40-150) U/L Troponin I 0.23 H* (0.01-0.04) ng/mL C-Reactive Protein 18.1 H (0.5-1.0) mg/dL NT-Pro-B Natriuret Pep 4310 H (0-125) PG/mL Total Protein 7.0 (6.0-8.3) g/dL Albumin 3.7 (3.3-5.0) g/dL Lipase 23 (23-300) U/L Procalcitonin (<0.50) ng/mL Urine Color (Yellow) Urine Appearance (Clear) Urine pH (5.0-8.5) Ur Specific Sutton (1.000-1.030) Urine Protein (Negative) Urine Glucose (UA) (Negative) Urine Ketones (Negative) Urine Blood (Negative) Urine Nitrite (Negative) Urine Bilirubin (Negative) Urine Urobilinogen (0.2-1.0) Ur Leukocyte Esterase (Negative) Urine RBC (0-2) Urine WBC (0-5) Ur Squamous Epith Cells (None-Few) Urine Bacteria (None) Coarse Granular Casts (None) SARS-CoV-2 (PCR) (Negative) 01/18/22 01/18/22 01/18/22 Range/Units 19:40 19:40 20:15 WBC (4.50-11.00) K/uL RBC (4.00-5.20) m/uL Hgb (12.0-16.0) gm/dL Hct (33.0-51.0) % MCV (80-100) fL MCH (26-34) pg MCHC (32-36) gm/dL RDW Coeff of Amberly (11.5-15.5) % Plt Count (140-440) K/uL Neut % (Auto) (42.0-72.0) % Lymph % (Auto) (20-44) % [place] % (Auto) (0.0-11.0) % Eos % (Auto) (0.0-7.0) % Baso % (Auto) (0.0-3.0) % Neut # (Auto) (1.7-7.0) K/uL Lymph # (Auto) (0.90-2.90) K/uL [place] # (Auto) (0.00-0.90) K/UL Eos # (Auto) (0.00-0.50) K/uL Baso # (Auto) (0.00-0.30) K/uL Abs Immat Gran (auto) (0.00-0.30) K/uL INR 1.84 H (0.91-1.10) VBG pH (7.32-7.43) VBG pCO2 (40-50) mmHG VBG pO2 (25-47) mmHG VBG HCO3 (21-28) mmol/L Sodium (135-149) mmol/L Potassium (3.6-5.1) mmol/L Chloride (96-114) mmol/L Carbon Dioxide (20-32) mmol/L BUN (7-30) mg/dL Creatinine (0.5-1.5) mg/dL Estimated Creat Clear Estimated GFR ml/min Glucose (60-115) mg/dL Lactate (0.5-1.9) mmol/L Calcium (8.4-10.6) mg/dL Total Bilirubin (0.1-1.5) mg/dL AST (12-35) U/L ALT (4-35) U/L Alkaline Phosphatase (40-150) U/L Troponin I (0.01-0.04) ng/mL C-Reactive Protein (0.5-1.0) mg/dL NT-Pro-B Natriuret Pep (0-125) PG/mL Total Protein (6.0-8.3) g/dL Albumin (3.3-5.0) g/dL Lipase (23-300) U/L Procalcitonin 0.71 H (<0.50) ng/mL Urine Color (Yellow) Urine Appearance (Clear) Urine pH (5.0-8.5) Ur Specific Sutton (1.000-1.030) Urine Protein (Negative) Urine Glucose (UA) (Negative) Urine Ketones (Negative) Urine Blood (Negative) Urine Nitrite (Negative) Urine Bilirubin (Negative) Urine Urobilinogen (0.2-1.0) Ur Leukocyte Esterase (Negative) Urine RBC (0-2) Urine WBC (0-5) Ur Squamous Epith Cells (None-Few) Urine Bacteria (None) Coarse Granular Casts (None) SARS-CoV-2 (PCR) Negative SARS-CoV-2 (Negative) 01/18/22 01/18/22 01/18/22 Range/Units 20:20 22:01 22:20 WBC (4.50-11.00) K/uL RBC (4.00-5.20) m/uL Hgb (12.0-16.0) gm/dL Hct (33.0-51.0) % MCV (80-100) fL MCH (26-34) pg MCHC (32-36) gm/dL RDW Coeff of Amberly (11.5-15.5) % Plt Count (140-440) K/uL Neut % (Auto) (42.0-72.0) % Lymph % (Auto) (20-44) % [place] % (Auto) (0.0-11.0) % Eos % (Auto) (0.0-7.0) % Baso % (Auto) (0.0-3.0) % Neut # (Auto) (1.7-7.0) K/uL Lymph # (Auto) (0.90-2.90) K/uL [place] # (Auto) (0.00-0.90) K/UL Eos # (Auto) (0.00-0.50) K/uL Baso # (Auto) (0.00-0.30) K/uL Abs Immat Gran (auto) (0.00-0.30) K/uL INR (0.91-1.10) VBG pH 7.386 (7.32-7.43) VBG pCO2 35 L (40-50) mmHG VBG pO2 46.4 (25-47) mmHG VBG HCO3 21 (21-28) mmol/L Sodium (135-149) mmol/L Potassium (3.6-5.1) mmol/L Chloride (96-114) mmol/L Carbon Dioxide (20-32) mmol/L BUN (7-30) mg/dL Creatinine (0.5-1.5) mg/dL Estimated Creat Clear Estimated GFR ml/min Glucose (60-115) mg/dL Lactate (0.5-1.9) mmol/L Calcium (8.4-10.6) mg/dL Total Bilirubin (0.1-1.5) mg/dL AST (12-35) U/L ALT (4-35) U/L Alkaline Phosphatase (40-150) U/L Troponin I 0.25 H* (0.01-0.04) ng/mL C-Reactive Protein (0.5-1.0) mg/dL NT-Pro-B Natriuret Pep (0-125) PG/mL Total Protein (6.0-8.3) g/dL Albumin (3.3-5.0) g/dL Lipase (23-300) U/L Procalcitonin (<0.50) ng/mL Urine Color Yellow (Yellow) Urine Appearance Slightly Cloudy A (Clear) Urine pH 5.5 (5.0-8.5) Ur Specific Sutton 1.020 (1.000-1.030) Urine Protein 3+ A (Negative) Urine Glucose (UA) 3+ A (Negative) Urine Ketones 1+ A (Negative) Urine Blood 3+ A (Negative) Urine Nitrite Negative (Negative) Urine Bilirubin 1+ A (Negative) Urine Urobilinogen 1.0 (0.2-1.0) Ur Leukocyte Esterase Negative (Negative) Urine RBC 0-2 (0-2) Urine WBC 0-2 (0-5) Ur Squamous Epith Cells Few (None-Few) Urine Bacteria None (None) Coarse Granular Casts Moderate A (None) SARS-CoV-2 (PCR) (Negative) <Noble Dooley MD - Last Filed: 01/19/22 07:48> Imaging Data Chest x-ray: Attestation: I have reviewed the pertinent imaging results. <Phylicia Suarez MD - Last Filed: 01/18/22 21:53> My impression: Poor inspiration, difficult to assess anything on this portable chest x-ray on my preliminary read. <Phylicia Li MD - Last Filed: 01/18/22 21:53> Radiologist's impression: Patient: [facility] Facility:?[facility] Patient ID:[id number] Site Patient ID:?[id number]. Site :?[id number] Study:?XRay Chest PORTABLE ONE VIEW-01/18/2022 8:25:54 PM Ordering Physician:Julio C Whatley Final Report: INDICATION: Hypoxia. TECHNIQUE: Chest 1 views. COMPARISON: Chest x-ray from 04/05/2019. FINDINGS: Lungs: Evaluation is notably limited by patient body habitus, portable technique, and underpenetration. The upper lungs are grossly clear. The lower lungs are obscured. Pleura: No obvious pleural effusion. Heart and Mediastinum: The heart appears enlarged. Dual lead pacemaker has its battery pack in the left chest wall. The vessels are unremarkable. Bones: Unremarkable. IMPRESSION: Notably limited evaluation. Grossly clear upper lungs. Dictated by Sina Lai MD @ 01/18/2022 8:53:54 PM <Phylicia Li MD - Last Filed: 01/18/22 21:53> CT Chest/Ab/Pelvis: Attestation: I have reviewed the pertinent imaging results. <Noble Dooley MD - Last Filed: 01/19/22 07:48> My impression: Bilateral pleural effusions worse on the right with adult this verses infiltrate, some stranding in the mid abdomen adjacent to the duodenum <Noble Dooley MD - Last Filed: 01/19/22 07:48> Radiologist's impression: 1. No pulmonary embolism. 2. Stable hepatomegaly. 3. Mild mucosal thickening with adjacent stranding of the duodenum is nonspecific and can be seen with duodenitis. Peptic ulcer disease is also possible. 4. New small volume ascites and pleural effusions. 5. Stable ventral abdominal wall hernia containing nonobstructed bowel loops. <Noble Dooley MD - Last Filed: 01/19/22 07:48> ECG Data Attestation: I personally reviewed and interpreted this ECG as follows: (Ventricular paced rhythm, 60 beats per minute) <Phylicia Li MD - Last Filed: 01/18/22 21:53> Prior ECG tracings: not available for review <Phylicia Li MD - Last Filed: 01/18/22 21:53> Critical Care Time Critical Care Time Critical Care Time: Yes Attestation: The patient required my highest level preparedness to intervene emergently and I personally spent this critical care time directly and personally managing the patient. This critical care time included: Obtaining a history; Examining the patient; Pulse oximetry; Ordering and reviewing of studies; Arranging urgent treatment with development of a management plan; Evaluation of patients response to treatment; Frequent reassessment discussions with other providers. This critical care time was performed to assess and manage the high probability of imminent life-threatening deterioration that could result in multiorgan failure. It was exclusive of separate billable procedures and treating other patients and teaching time. <Noble Dooley MD - Last Filed: 01/19/22 07:48> Total Critical Care Time in Minutes: 40 <Noble Dooley MD - Last Filed: 01/19/22 07:48> Discharge Plan Discharge Clinical Impression: Hypoxia, Acute right flank pain, Respiratory distress, Pleural effusion, SIRS (systemic inflammatory response syndrome), Acute encephalopathy <Phylicia Li MD - Last Filed: 01/18/22 21:53> Patient Disposition: Admitted As Inpatient <Phylicia Li MD - Last Filed: 01/18/22 21:53> Condition: Stable <Phylicia Li MD - Last Filed: 01/18/22 21:53>
[2022-01-18 20:27] LABS: NT Pro B Type NatriureticPept* 4310 PG/mL (0-125)
[2022-01-18 20:31] LABS: Glucose* 369 mg/dL (60-115)
[2022-01-18 20:32] LABS: Troponin I* 0.23 ng/mL (0.01-0.04)
--- NOTE | 2022-01-18 20:33 | ED.NURSE ---
Critical received from lab: Glucose 369, Trop 0.23. Primary nurse informed, aware.
[2022-01-18 20:35] LABS: Procalcitonin* 0.71 ng/mL (<0.50)
--- NOTE | 2022-01-18 20:40 | CRLHL7_ITS ---
For Patients: As a result of the 21st Century Cures Act, medical imaging exams and procedure reports are released immediately into your electronic medical record. You may view this report before your referring provider. If you have questions, please contact your health care provider. INDICATION: Elevated troponin. Rule out PE. Ongoing right flank pain. TECHNIQUE: CT chest PE, abdomen, and pelvis acquired with 95 mL of Isovue 370 IV contrast. Coronal and sagittal reformats were generated. COMPARISON: CT of the abdomen and pelvis from 01/16/2022, 01/15/2022, and 09/06/2021. FINDINGS: CHEST: Pulmonary arteries: The quality of enhancement of the pulmonary arteries is adequate. No filling defects to suggest pulmonary emboli. No findings of pulmonary artery hypertension. Thyroid: Unremarkable. Thoracic lymph nodes: No enlarged supraclavicular, mediastinal, hilar, or axillary lymph nodes. Mediastinum and esophagus: Unremarkable. Heart and vasculature: The heart is enlarged. Lungs: Diffuse patchy ground-glass opacities, primarily in the lower lobes are suggestive of atelectasis. Pleura: Small bilateral pleural effusions have developed, with associated relaxation atelectasis. Linear left basilar opacity is probably scarring. Chest wall: Unremarkable. ABDOMEN AND PELVIS: Liver: Enlarged measuring 24.9 cm in craniocaudad dimension in the midclavicular line, with enlargement of the left hepatic lobe. No focal hepatic lesions. Gallbladder and bile ducts: Surgically absent gallbladder. Mild intrahepatic biliary dilation could be related to reservoir affect. The common bile duct is normal in caliber. Spleen: Unremarkable. Pancreas: Unremarkable. Adrenal glands: Unremarkable. No nodules. Kidneys and Ureters: Unremarkable. No suspicious masses, stones, or hydronephrosis. Lymph Nodes and Retroperitoneum: Unremarkable. Vasculature: Incidental note is made of a retroaortic left renal vein, a normal variant. GI tract: High attenuation material along the greater curvature of the stomach is stable and compatible with prior gastric surgery. Small amount of stranding has developed along the duodenum, along with mild mucosal thickening and hyperemia. Bowel loops are normal in caliber. Stable ventral abdominal wall defect measuring 4.9 cm transversely (8/107), containing herniated loops of nonobstructed small bowel. Peritoneum/Abdominal Wall: Small volume of free fluid tracks along the right hepatic lobe. Mild diffuse stranding throughout the mesentery. Pelvic Viscera: Unremarkable. Bladder: Unremarkable. Bones: Multilevel degenerative changes. No aggressive appearing lytic or blastic lesions. IMPRESSION: 1. No pulmonary embolism. 2. Stable hepatomegaly. 3. Mild mucosal thickening with adjacent stranding of the duodenum is nonspecific and can be seen with duodenitis. Peptic ulcer disease is also possible. 4. New small volume ascites and pleural effusions. 5. Stable ventral abdominal wall hernia containing nonobstructed bowel loops. Please note that all CT scans at this facility use dose modulation, iterative reconstruction, and/or weight-based dosing when appropriate to reduce radiation dose to as low as reasonably achievable. Dictated by Sina Lai MD @ 01/18/2022 10:55:50 PM (Electronically Signed)
[2022-01-18 20:42] LABS: HCO3 VBG 21 mmol/L (21-28); PCO2 VBG 35 mmHG (40-50); PO2 VBG 46.4 mmHG (25-47); pH VBG 7.386 (7.32-7.43)
[2022-01-18] MEDS: 0.9 % SODIUM CHLORIDE 250 ml 250 ML IV (20:44)
[2022-01-18 20:48] LABS: C Reactive Protein* 18.1 mg/dL (0.5-1.0)
[2022-01-18] MEDS: PIPERACILLIN/TAZOBACTAM 3.375 GM in 0.9 % SODIUM CHLORIDE Mini-bag 100 ML IVPB (21:02)
[2022-01-18 21:07] LABS: INR 1.84 (0.91-1.10); Prothrombin Time 21.7 Seconds
[2022-01-18 21:11] LABS: SARS PCR* Negative SARS-CoV-2 (Negative)
[2022-01-18 22:26] LABS: Appearance Urine Slightly Cloudy (Clear); Bilirubin Urine 1+ (Negative); Blood Urine 3+ (Negative); Color Urine Yellow (Yellow); Glucose Urine 3+ (Negative); Ketones Urine 1+ (Negative); Leukocyte Esterase Urine Negative (Negative); Nitrite Urine Negative (Negative); Protein Urine 3+ (Negative); pH Urine 5.5 (5.0-8.5)
[2022-01-18 22:35] LABS: RBC Urine 0-2 (0-2); Squamous Epithelial Cell Urine Few (None-Few); WBC Urine 0-2 (0-5)
[2022-01-18 22:36] LABS: Coarse Granular Casts Urine Moderate
[2022-01-18 22:41] LABS: Troponin I* 0.25 ng/mL (0.01-0.04)
--- NOTE | 2022-01-18 22:42 | ED.NURSE ---
Critical Result: Troponin I 0.25, handed to at 2244.
[2022-01-18] MEDS: HYDROmorphone 0.5 mg/0.5 ml inj IVP (23:17)
[2022-01-18] MEDS: FUROSEMIDE 10 MG/ML inj 40 MG IVP (23:17)
--- NOTE | 2022-01-18 23:47 | W.PC.EDHO ---
Primary Language: Preferred Language: Orientation Status: [] Alert & Oriented [x] Slight Confusion [] Known Dx Dementia Transfers By: [] Assist of 1 [x] Assist of 2 [] Lift Active Medications Generic Name Dose Route Start Last Admin Trade Name Freq PRN Reason Stop Dose Admin Furosemide 40 mg 01/18/22 23:03 01/18/22 23:17 Furosemide 10 Mg/Ml Inj IVP 01/18/22 23:04 40 mg ONCE ONE Administration Hydromorphone HCl 0.5 mg 01/18/22 23:04 01/18/22 23:17 Hydromorphone 0.5 Mg/0.5 Ml Inj IVP 01/18/22 23:05 0.5 mg ONCE ONE Administration Discontinued Medications Generic Name Dose Route Start Last Admin Trade Name Freq PRN Reason Stop Dose Admin Sodium Chloride 250 mls @ 250 mls/hr 01/18/22 20:42 01/18/22 20:44 0.9 % Sodium Chloride 250 Ml IV 01/18/22 21:41 250 mls/hr .Q1H ONE Administration Piperacillin Sod/Tazobactam 100 mls @ 200 mls/hr 01/18/22 20:49 01/18/22 21:02 Sod 3.375 gm/ Sodium Chloride IVPB 01/18/22 20:50 200 mls/hr ONCE ONE Administration Description of Symptoms ED Triage Present Problem pt presents via w/c acco by son. 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 was here via ems for R flank/back pains and vomiting. sent home with tizanidine, isn't helping. is more confused, not eating drinking much, unsteady, sounds drugged, more pain to R flank and now to epigastric, hasn't left her bed much. Female History Patient Benton Coma Scale Benton coma scale total score 14 Pain Pain Description [Chest] With Movement Pain Intensity [Chest] 2 Pain Intensity 4 Pain Intensity 4 Pain Intensity 4 Pain Intensity 2 Pain Scale Used [Chest] Numeric (1 - 10) Pain Scale Used Numeric (1 - 10) Oxygen Administration Pulse Oximetry 93 Pulse Oximetry 92 Pulse Oximetry 91 Pulse Oximetry 92 Pulse Oximetry 91 Pulse Oximetry 94 Pulse Oximetry 85 Pulse Oximetry 84 Oxygen Delivery Method Room Air Oxygen Delivery Method Room Air Oxygen Delivery Method Room Air Oxygen Flow Rate 2 Cardiac Monitoring EKG Method 12 Lead
[2022-01-19] VITALS (14 sets, daily range): BP systolic 123–153; BP diastolic 59–82; PULSE 60–70; RESP 22–37; TEMP 36.2–37.6; O2SAT 90–96; BMI 41.2
--- NOTE | 2022-01-19 01:02 | P.IMHP_ITS ---
Hospitalist- H&P: HPI History of Present Illness Time Seen by Provider: 11:20 Date Seen: 01/18/22 Chief complaint: BACK PAIN,MOVING TO FRONT RIGHT Narrative: Diane Warner is a 71 year old female Review of Systems Const: Reports: malaise and change in sleep pattern (Has not slept well in 5 nights due to back pain); Denies: fever or chills Eyes: Denies: change in vision Cardio: Reports: chest pain (Lower substernal chest pain that lasted a few minutes today just prior toER); Denies: shortness of breath with exertion Resp: Denies: shortness of breath, cough, wheezing or chest congestion GI: Reports: nausea (with narcotics for back pain) and vomiting (with narcotics for back pain); Denies: abdominal pain, coffee grounds in vomit, diarrhea, constipation, bloating, belching, change in bowel habits or painful bowel movements : Denies: painful urination, urinary frequency, urinary urgency, urinary incontinence, blood in urine, difficulty voiding, decreased urine ouput or pelvic pain Musculo: Reports: back pain (R low back/flank) Integ/Breast: Denies: rash Neuro: Reports: confusion (today); Denies: numbness in extremities, weakness in extremities, lack of coordination, dizziness or slurred speech Allergy/Immuno: Denies: wheezing PFSH PFSH Medical History (Updated 01/19/22 @ 01:29 by Kati Kilpatrick MD) 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 Anticoagulation goal of INR 2 to 3 Cardiomyopathy Chronic atrial fibrillation Chronic obstructive pulmonary disease Cough History of amputation of toe History of cardiac pacemaker in situ (2007) History of Clostridioides difficile colitis (02/22/18) History of colonic polyps (2010) History of Crohn's disease 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) History of vitamin D deficiency Hyperlipidemia Incisional hernia Malaise Melena Morbid obesity with BMI of 40.0-44.9, adult Osteoarthritis of shoulder Regional enteritis Type 2 diabetes mellitus Upper respiratory tract infection Venous stasis of both lower extremities Surgical History (Updated 01/19/22 @ 01:17 by Kati Kilpatrick MD) H/O rectal polypectomy History of section History of esophagogastroduodenoscopy (EGD) (02/22/18) History of laparoscopic partial gastrectomy (~03/2018) Hx of appendectomy Hx of cholecystectomy Family History (Updated 01/19/22 @ 01:18 by Kati Kilpatrick MD) Father Prostate cancer Mother Diabetes Coronary artery disease Social History Smoking Status: Never smoker How often do you have a drink containing alcohol: never AUDIT-C Alcohol total score: 0 Non-prescribed substance use: denies use service: No Meds Home Medications and Allergies Home Medications Medication Instructions Recorded Confirmed Type acetaminophen 500 mg capsule 500 mg PO Q6H PRN 11/14/21 01/18/22 History acyclovir 400 mg tablet 400 mg PO BID 11/14/21 01/18/22 History albuterol sulfate 90 mcg/actuation 2 inh inhalation Q4H PRN 11/14/21 01/18/22 History aerosol inhaler (ProAir HFA) balsalazide 750 mg capsule 2,250 mg PO TID 11/14/21 01/18/22 History cholecalciferol (vitamin D3) 50 4,000 unit PO DAILY 11/14/21 01/18/22 History mcg (2,000 unit) capsule furosemide 20 mg tablet 20 mg PO DAILY 11/14/21 01/18/22 History glipizide 5 mg tablet 7.5 mg PO BIDWM 11/14/21 01/18/22 History insulin glargine 100 unit/mL (3 36 unit subcut DAILY 11/14/21 01/18/22 History mL) subcutaneous pen (Lantus Solostar U-100 Insulin) ipratropium 0.5 mg-albuterol 3 mg 3 ml inhalation Q6H 11/14/21 01/18/22 History (2.5 mg base)/3 mL nebulization soln metformin 500 mg tablet 500 mg PO BIDWMEAL 11/14/21 01/18/22 History pseudoephedrine HCl 60 mg tablet 60 mg PO Q6H PRN 11/14/21 01/18/22 History simvastatin 40 mg tablet 40 mg PO QPM 11/14/21 01/18/22 History warfarin 2.5 mg tablet 2.5 mg PO DAILY 11/14/21 01/18/22 History Allergies Allergy/AdvReac Type Severity Reaction Status Date / Time aspirin Allergy Mild Verified 01/18/22 19:38 dapagliflozin Allergy Unknown Verified 01/18/22 19:38 erythromycin base Allergy Unknown Verified 01/18/22 19:38 Exam Narrative: Exam Narrative: General: Appears sleepy and tired, occasional spasms of pain in the right back. Awake, eyes open, answering questions appropriately. Oriented x3. HEENT: [Normocephalic atraumatic], [pupils equally round and reactive to light and accommodation]. Oropharynx [clear]. Mucous membranes are dry. [No cervical lymphadenopathy, thyromegaly or carotid bruits]. She has BiPAP on and a very thick neck, JVD difficult to appreciate. Cardiovascular: [Regular rate and rhythm]. [No murmurs, gallops, or rubs]. Chest: Tachypneic, no use of accessory muscles, bibasilar crackles, diminished at both bases, no wheezes. Abdomen: Bowel sounds [present]. [Soft, nondistended, nontender.] [No hepatosplenomegaly or masses]. Back: No rashes or deformity. Mildly tender to palpation along the right L2 dermatome. She tells me this does not reproduce her pain because the pain is deeper. Extremities: 1+ pitting edema in both lower extremities, chronic venous stasis changes in both lower extremities, [no cyanosis or clubbing]. Skin: [No jaundice,] [no pallor,] [no rashes]. Spider vein on right lower leg. Neuro: Straight leg raise negative bilaterally. Light touch sensation intact in both lower extremities. Strength is 5/5 in both lower extremities. Const: Vital Signs, click to edit/add: Vital Signs - 24 hr 01/18/22 19:32 01/18/22 19:51 01/18/22 20:35 Temperature 98.4 F Pulse Rate Pulse Rate [Left P ulse Oximeter] 60 Respiratory Rate 48 H Blood Pressure Blood Pressure [Le ft Upper Arm] 148/77 H Blood Pressure [Ri ght Arm] Pulse Oximetry 84 L 85 L 91 Oxygen Delivery Me thod Room Air Room Air Room Air Oxygen Flow Rate 2 Fraction of Inspir ed Oxygen 01/18/22 20:30 01/18/22 20:24 01/18/22 20:30 Temperature 99.1 F Pulse Rate 61 60 Pulse Rate [Left P ulse Oximeter] Respiratory Rate Blood Pressure Blood Pressure [Le ft Upper Arm] Blood Pressure [Ri ght Arm] Pulse Oximetry 94 91 Oxygen Delivery Me thod Oxygen Flow Rate Fraction of Inspir ed Oxygen 01/18/22 20:31 01/18/22 21:01 01/18/22 21:02 Temperature Pulse Rate 62 60 60 Pulse Rate [Left P ulse Oximeter] Respiratory Rate Blood Pressure 149/70 H 153/73 H Blood Pressure [Le ft Upper Arm] Blood Pressure [Ri ght Arm] Pulse Oximetry 92 92 93 Oxygen Delivery Me thod Oxygen Flow Rate Fraction of Inspir ed Oxygen 01/19/22 00:00 01/18/22 22:15 01/18/22 22:16 Temperature 99.1 F Pulse Rate 62 62 Pulse Rate [Left P ulse Oximeter] 60 Respiratory Rate 35 H Blood Pressure 142/71 H Blood Pressure [Le ft Upper Arm] 140/70 H Blood Pressure [Ri ght Arm] Pulse Oximetry 93 95 94 Oxygen Delivery Me thod BiPAP Oxygen Flow Rate Fraction of Inspir ed Oxygen 01/18/22 23:38 01/18/22 23:39 01/19/22 00:58 Temperature 97.1 F L Pulse Rate 60 60 Pulse Rate [Left P ulse Oximeter] Respiratory Rate 30 H Blood Pressure 133/70 Blood Pressure [Le ft Upper Arm] Blood Pressure [Ri ght Arm] 134/61 Pulse Oximetry 98 97 93 Oxygen Delivery Me thod BiPAP Oxygen Flow Rate Fraction of Inspir ed Oxygen 30 Hospitalist - H&P: Result Labs Labs: Short CBC 01/18/22 Range/Units 19:40 WBC 11.14 H (4.50-11.00) K/uL Hgb 13.0 (12.0-16.0) gm/dL Hct 39.0 (33.0-51.0) % Plt Count 231 (140-440) K/uL BMP 01/18/22 19:40 Sodium 130 L Potassium 4.1 Chloride 98 Carbon Dioxide 20 BUN 26 Creatinine 1.0 Glucose 369 H* Calcium 8.0 L Cardiac Enzymes 01/18/22 01/18/22 Range/Units 19:40 22:01 Troponin I 0.23 H* 0.25 H* (0.01-0.04) ng/mL Liver Function 01/18/22 Range/Units 19:40 Total Bilirubin 1.6 H (0.1-1.5) mg/dL AST 35 (12-35) U/L ALT 18 (4-35) U/L Alkaline Phosphatase 70 (40-150) U/L Albumin 3.7 (3.3-5.0) g/dL Urine 01/18/22 Range/Units 22:20 Urine Color Yellow (Yellow) Urine Appearance Slightly Cloudy A (Clear) Urine pH 5.5 (5.0-8.5) Ur Specific [place] 1.020 (1.000-1.030) Urine Protein 3+ A (Negative) Urine Glucose (UA) 3+ A (Negative) Ordering Physician: Phylicia Li M.D. Date of Service: 01/18/22 Procedure(s): XR chest 1V portable Accession Number(s): [id number] cc: Phylicia Li M.D.; Tiny Perez M.D.~ For Patients: As a result of the Cures Act, medical imaging exams and procedure reports are released immediately into your electronic medical record. You may view this report before your referring provider. If you have questions, please contact your health care provider. INDICATION: Hypoxia. TECHNIQUE: Chest 1 views. COMPARISON: Chest x-ray from 04/05/2019. FINDINGS: Lungs: Evaluation is notably limited by patient body habitus, portable technique, and underpenetration. The upper lungs are grossly clear. The lower lungs are obscured. Pleura: No obvious pleural effusion. Heart and Mediastinum: The heart appears enlarged. Dual lead pacemaker has its battery pack in the left chest wall. The vessels are unremarkable. Bones: Unremarkable. IMPRESSION: Notably limited evaluation. Grossly clear upper lungs. Dictated by Sina Lai MD @ 01/18/2022 8:53:54 PM (Electronically Signed) Ordering Physician: Phylicia Li M.D. Date of Service: 01/18/22 Procedure(s): CT chest abdomen pelv w con Accession Number(s): [id number] cc: Phylicia Li M.D.; Tiny Perez M.D.~ For Patients: As a result of the Cures Act, medical imaging exams and procedure reports are released immediately into your electronic medical record. You may view this report before your referring provider. If you have questions, please contact your health care provider. INDICATION: Elevated troponin. Rule out PE. Ongoing right flank pain. TECHNIQUE: CT chest PE, abdomen, and pelvis acquired with 95 mL of Isovue 370 IV contrast. Coronal and sagittal reformats were generated. COMPARISON: CT of the abdomen and pelvis from 01/16/2022, 01/15/2022, and 09/06/2021. FINDINGS: CHEST: Pulmonary arteries: The quality of enhancement of the pulmonary arteries is adequate. No filling defects to suggest pulmonary emboli. No findings of pulmonary artery hypertension. Thyroid: Unremarkable. Thoracic lymph nodes: No enlarged supraclavicular, mediastinal, hilar, or axillary lymph nodes. Mediastinum and esophagus: Unremarkable. Heart and vasculature: The heart is enlarged. Lungs: Diffuse patchy ground-glass opacities, primarily in the lower lobes are suggestive of atelectasis. Pleura: Small bilateral pleural effusions have developed, with associated relaxation atelectasis. Linear left basilar opacity is probably scarring. Chest wall: Unremarkable. ABDOMEN AND PELVIS: Liver: Enlarged measuring 24.9 cm in craniocaudad dimension in the midclavicular line, with enlargement of the left hepatic lobe. No focal hepatic lesions. Gallbladder and bile ducts: Surgically absent gallbladder. Mild intrahepatic biliary dilation could be related to reservoir affect. The common bile duct is normal in caliber. Spleen: Unremarkable. Pancreas: Unremarkable. Adrenal glands: Unremarkable. No nodules. Kidneys and Ureters: Unremarkable. No suspicious masses, stones, or hydronephrosis. Lymph Nodes and Retroperitoneum: Unremarkable. Vasculature: Incidental note is made of a retroaortic left renal vein, a normal variant. GI tract: High attenuation material along the greater curvature of the stomach is stable and compatible with prior gastric surgery. Small amount of stranding has developed along the duodenum, along with mild mucosal thickening and hyperemia. Bowel loops are normal in caliber. Stable ventral abdominal wall defect measuring 4.9 cm transversely (8/107), containing herniated loops of nonobstructed small bowel. Peritoneum/Abdominal Wall: Small volume of free fluid tracks along the right hepatic lobe. Mild diffuse stranding throughout the mesentery. Pelvic Viscera: Unremarkable. Bladder: Unremarkable. Bones: Multilevel degenerative changes. No aggressive appearing lytic or blastic lesions. IMPRESSION: 1. No pulmonary embolism. 2. Stable hepatomegaly. 3. Mild mucosal thickening with adjacent stranding of the duodenum is nonspecific and can be seen with duodenitis. Peptic ulcer disease is also possible. 4. New small volume ascites and pleural effusions. 5. Stable ventral abdominal wall hernia containing nonobstructed bowel loops. Please note that all CT scans at this facility use dose modulation, iterative reconstruction, and/or weight-based dosing when appropriate to reduce radiation dose to as low as reasonably achievable. Dictated by Sina Lai MD @ 01/18/2022 10:55:50 PM (Electronically Signed) Ordering Physician: Phylicia Li M.D. Date of Service: 01/16/22 Procedure(s): CT lumbar spine wo con Accession Number(s): [id number] cc: Phylicia Li M.D.; Tiny Perez M.D.~ For Patients: As a result of the Cures Act, medical imaging exams and procedure reports are released immediately into your electronic medical record. You may view this report before your referring provider. If you have questions, please contact your health care provider. Indication: Right flank pain. Technique: CT lumbar spine without contrast. Coronal and sagittal reformations were performed. Please note that all CT scans at this facility use dose modulation, iterative reconstruction, and/or weight-based dosing when appropriate to reduce radiation dose to as low as reasonably achievable. Comparison: CT abdomen and pelvis 01/16/[address] 02/13/2020. Findings: Five [id number] lumbar-type vertebral bodies. Minimal anterolisthesis of L4 on L5. Otherwise, alignment is normal. No evidence of fracture. Intervertebral disc heights are grossly preserved with minimal disc height loss at L4-5 and L5-S1. Mild facet degenerative changes bilaterally at L3-L4, L4-5, and L5-S1. Spiculated sclerotic lesion in the left iliac bone consistent with a bone island unchanged compared to CT from 2019. No abnormality in the paraspinal soft tissues. Impression: 1. No fracture or acute abnormality. 2. 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 Please note that all CT scans at this facility use dose modulation, iterative reconstruction, and/or weight-based dosing when appropriate to reduce radiation dose to as low as reasonably achievable. Dictated by Chino Ferrer MD @ 01/16/2022 11:06:55 AM (Electronically Signed) Ordering Physician: Phylicia Li M.D. Date of Service: 01/16/22 Procedure(s): CT lumbar spine wo con Accession Number(s): [id number] cc: Phylicia Li M.D.; Tiny Perez M.D.~ For Patients: As a result of the Century Cures Act, medical imaging exams and procedure reports are released immediately into your electronic medical record. You may view this report before your referring provider. If you have questions, please contact your health care provider. Indication: Right flank pain. Technique: CT lumbar spine without contrast. Coronal and sagittal reformations were performed. Please note that all CT scans at this facility use dose modulation, iterative reconstruction, and/or weight-based dosing when appropriate to reduce radiation dose to as low as reasonably achievable. Comparison: CT abdomen and pelvis 01/16/[address] 02/13/2020. Findings: Five zkv-oxs-[id number] lumbar-type vertebral bodies. Minimal anterolisthesis of L4 on L5. Otherwise, alignment is normal. No evidence of fracture. Intervertebral disc heights are grossly preserved with minimal disc height loss at L4-5 and L5-S1. Mild facet degenerative changes bilaterally at L3-L4, L4-5, and L5-S1. Spiculated sclerotic lesion in the left iliac bone consistent with a bone island unchanged compared to CT from 2019. No abnormality in the paraspinal soft tissues. Impression: 1. No fracture or acute abnormality. 2. 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 Please note that all CT scans at this facility use dose modulation, iterative reconstruction, and/or weight-based dosing when appropriate to reduce radiation dose to as low as reasonably achievable. Dictated by Chino Ferrer MD @ 01/16/2022 11:06:55 AM (Electronically Signed) ECG Attestation: I personally reviewed and interpreted this ECG as follows: (Ventricular paced rhythm, 60 beats per minute.) ECG interpretation date: 01/19/22 ECG interpretation time: 01:00 Prior ECG tracings: not available for review Pacemaker function: normal pacer function Assessment and Plan Assessment and plan (1) Acute respiratory failure: Status: Acute (2) Tachypnea: Status: Acute (3) Volume overload: Status: Acute (4) Pleural effusion: Status: Acute (5) Chest pain: Status: Acute (6) Elevated troponin: Problem comment: stable at 0.25 Status: Acute (7) Acute right flank pain: Status: Acute (8) Hyponatremia: Status: Acute (9) Chronic atrial fibrillation: Status: Chronic (10) Chronic anticoagulation: Status: Acute (11) Hyperglycemia due to diabetes mellitus: Status: Acute Chuck Contreras got put on BiPAP in the emergency department for tachypnea and volume overload. Admit to CCU and continue BiPAP. Continue diuresis, she got furosemide in the emergency department and I will schedule this again for the morning and twice daily. I think her acute respiratory failure is secondary to volume overload from having stopped her furosemide on . Her respiratory rate has already improved on BiPAP. She did have some chest pain earlier today, it is resolved now without intervention. Troponin is elevated, but unchanged on the 2nd check. I have ordered a 3rd troponin level to be drawn at 2:00 a.m.. Continue monitoring on telemetry and obtain an echocardiogram in the morning. Her last echocardiogram was in 2018. Hyponatremia is likely multifactorial, but I suspect mostly due to volume overload. Diurese and recheck sodium. She is hyperglycemic, but not in DKA. She has not taken metformin or Lantus or glipizide for several days now. Restart glipizide and Lantus. Hold metformin since she is hypoxic on BiPAP and I am diuresing her. I have added an insulin sliding scale with meals and at bedtime as well. I have reviewed her labs and I do not think she is septic at this time. Blood cultures are pending. She does not have a fever and her white count is not markedly elevated. Monitor for any new or worsening symptoms that are suggestive of sepsis. If these arise, then restart Zosyn consider adding vanco. Although she has atrial fibrillation, she is ventricularly paced, there is no tachycardia. Continue her usual medications including metoprolol. She is slightly subtherapeutic on warfarin, likely because she stopped her medications several days ago because she was not feeling well. I will give her 5 mg of warfarin now upon admission and will resume her usual dosing later today. Check INR daily, goal 2-3. VTE prophylaxis with warfarin. Cause of back pain is unclear. She has had multiple imaging studies recently, but all CT. If she continues to have back pain through the weekend or if it worsens, consider imaging with MRI. May also need an MRI if she develops fever or positive blood cultures. There is no overlying rash that suggests shingles. Appendix and gallbladder have both been surgically removed previously. Although she has duodenitis on CT, this seems to be unrelated to low right flank/back pain. There are no red flag neurologic findings. Monitor.
[2022-01-19] MEDS: ACETAMINOPHEN 500 MG TABLET PO ×3 (02:14→16:35)
[2022-01-19] MEDS: IPRAT-ALBUT 0.5-2.5 MG/3 ML NEB 1 NEB IH ×3 (02:15→19:26)
[2022-01-19] MEDS: LIDOCAINE 5% PATCH 1 PATCH TRANSDERMA (02:15)
[2022-01-19] MEDS: WARFARIN 5 MG TABLET PO ×2 (02:53→16:35)
[2022-01-19 03:42] LABS: Troponin I* 0.22 ng/mL (0.01-0.04)
[2022-01-19] MEDS: FUROSEMIDE 10 MG/ML inj 40 MG IVP (05:49)
--- NOTE | 2022-01-19 05:54 | PC.NURSE ---
patient up with assist X1 to BSC, turns and repos self in bed independently. BIPAP entire shift, tolerating well. continues to c/o back pain and flank pain intermittently. ice to back, c/o feeling hot, patient sweaty, afebrile, ice pack to back of neck. patinet fatigued but answers questions appropriately. [facility] provider Dr Chan updated on patients critical trop, no further ordrers given. tele has shown a Vpaced rhythm entire shift.
[2022-01-19 06:34] LABS: Basophils Absolute Auto 0.03 K/uL (0.00-0.30); Basophils Percent Auto 0.3 % (0.0-3.0); Hematocrit 37.7 % (33.0-51.0); Hemoglobin* 12.4 gm/dL (12.0-16.0); Immature Granulocytes Abs Auto 0.01 K/uL (0.00-0.30); Mean Corpuscular HGB Conc 33 gm/dL (32-36); Mean Corpuscular Hemoglobin 28 pg (26-34); Mean Corpuscular Volume 86 fL (80-100); Monocytes Percent Auto 11.3 % (0.0-11.0); Neutrophils Percent Auto 82.3 % (42.0-72.0); Platelet Count* 207 K/uL (140-440); RDW Coefficient of Variation % 13.3 % (11.5-15.5); Red Blood Count 4.39 m/uL (4.00-5.20); White Blood Count* 8.93 K/uL (4.50-11.00)
[2022-01-19 06:37] LABS: Slide Review Reflex No
[2022-01-19 06:41] LABS: Chloride* 98 mmol/L (96-114); Sodium* 132 mmol/L (135-149)
[2022-01-19 06:44] LABS: Creatinine* 1.2 mg/dL (0.5-1.5); Est. Creatinine Clearance* 42.75; Estimated Glomerular Filt Rate 48 ml/min
[2022-01-19 06:45] LABS: Blood Urea Nitrogen* 25 mg/dL (7-30); Calcium* 7.8 mg/dL (8.4-10.6); Carbon Dioxide* 26 mmol/L (20-32); Glucose* 340 mg/dL (60-115); Prothrombin Time 22.2 Seconds
[2022-01-19] MEDS: glipiZIDE 5 MG TABLET 7.5 MG PO (08:04)
--- NOTE | 2022-01-19 08:27 | PT.IPDN ---
Pt unable to participate in PT/OT today. Pt states I feel terrible, I can't move around. Pt in bed, nsg assisting with neb. treatment, providing blankets due to pt shivering/feeling cold. Respiratory to see pt. PT/OT is available to see pt tomorrow if appropriate.
--- NOTE | 2022-01-19 09:24 | CRLHL7_ITS ---
For Patients: As a result of the Century Cures Act, medical imaging exams and procedure reports are released immediately into your electronic medical record. You may view this report before your referring provider. If you have questions, please contact your health care provider. INDICATION: Dyspnea, weakness TECHNIQUE: Chest 2 views. COMPARISON: One day prior FINDINGS: Two AP portable chest radiographs were obtained. A shallow depth of inspiratory effort is again noted with mild bibasilar atelectasis. The upper lungs remain clear. No pleural effusions are evident. The heart size is enlarged. Central vascular markings are prominent but accentuated due to the shallow depth of inspiratory effort. A dual-chamber left subclavian transvenous cardiac pacer remains in place and appears appropriately positioned. IMPRESSION: Shallow depth of inspiratory effort with mild bibasilar pulmonary atelectasis. Dictated by Bennie Cardoso MD @ 01/19/2022 10:49:12 AM (Electronically Signed)
[2022-01-19] MEDS: ACYCLOVIR 200 MG CAPSULE 400 MG PO ×2 (09:27→20:54)
--- NOTE | 2022-01-19 09:40 | PC.NURSE ---
Updated MD of blood culture results.
--- NOTE | 2022-01-19 09:42 | P.IMPN_ITS ---
Progress Note: A&P Assessment and plan (1) Bacteremia: Status: Acute Assessment and Plan: see below Plan 71F who presented to ED with back pain; in the ED given one dose of zosyn, placed on BIPAP overnight and started on IV lasix for presumed Diastolic CHF exacerbation. This morning noted to have GPC positive blood cx 1. Gram Positive Bacteremia 2. Hx of Chronic atrial Fibrillation 3. Hypervolemic Hyponatremia; sodium improving to 132 4. Hx of Type II DM 5. Acute hypoxic respiratory failure, improving; likely secondary to mild CHF exacerbation 6. Hx of COPD 7. Hx of Crohn's Dx 8. Hx of HFpEF, now with suspected mild decompensated CHF, resolving with IV lasix, hx of cardiac pacemaker 9. Elevated troponin-plateauted, likely Type II NSTEMI secondary to bactermia Plan for 01/19 -repeat blood cx -vbg -lactate -cxr -procal -dc glipizide -pharmacy to dose vancomycin -Echo tomorrow -will need to discuss with ID if she needs JOSE -dc IV lasix given Cr trending up; appears euvolemic on exam -unable to get MRI d/t pacemaker -pain control -source of bacteremia unclear, may consider repeat CT CAP with IV contrast to assess for possible abscess -warfarin 5mg today code status-full DVt ppx-on warfarin Subjective Date Seen: 01/19/22 Interval history: meeting patient for first time today off BIPAP denies chest pain Denies SOB Denies cough blood cx noted to be positive this morning with GPC in clusters Exam Narrative: Exam Narrative: Gen: obese female in no distress HEENT: NCAT EOMI MMM CV: RRR normal s1 s2 Lungs: CTAB Abd: Obese, soft, nt, nd Neuro: Alert, oriented, moves extremities, CN grossly intact Ext: trace pedal edema Const: Vital Signs, click to edit/add: Vital Signs - 24 hr 01/18/22 19:32 01/18/22 19:51 01/18/22 20:35 Temperature 98.4 F Pulse Rate Pulse Rate [Left A pical] Pulse Rate [Left P ulse Oximeter] 60 Respiratory Rate 48 H Blood Pressure Blood Pressure [Le ft Upper Arm] 148/77 H Blood Pressure [Ri ght Arm] Pulse Oximetry 84 L 85 L 91 Oxygen Delivery Me thod Room Air Room Air Room Air Oxygen Flow Rate 2 Fraction of Inspir ed Oxygen 01/18/22 20:30 01/18/22 20:24 01/18/22 20:30 Temperature 99.1 F Pulse Rate 61 60 Pulse Rate [Left A pical] Pulse Rate [Left P ulse Oximeter] Respiratory Rate Blood Pressure Blood Pressure [Le ft Upper Arm] Blood Pressure [Ri ght Arm] Pulse Oximetry 94 91 Oxygen Delivery Me thod Oxygen Flow Rate Fraction of Inspir ed Oxygen 01/18/22 20:31 01/18/22 21:01 01/18/22 21:02 Temperature Pulse Rate 62 60 60 Pulse Rate [Left A pical] Pulse Rate [Left P ulse Oximeter] Respiratory Rate Blood Pressure 149/70 H 153/73 H Blood Pressure [Le ft Upper Arm] Blood Pressure [Ri ght Arm] Pulse Oximetry 92 92 93 Oxygen Delivery Me thod Oxygen Flow Rate Fraction of Inspir ed Oxygen 01/19/22 00:00 01/18/22 22:15 01/18/22 22:16 Temperature 99.1 F Pulse Rate 62 62 Pulse Rate [Left A pical] Pulse Rate [Left P ulse Oximeter] 60 Respiratory Rate 35 H Blood Pressure 142/71 H Blood Pressure [Le ft Upper Arm] 140/70 H Blood Pressure [Ri ght Arm] Pulse Oximetry 93 95 94 Oxygen Delivery Me thod BiPAP Oxygen Flow Rate Fraction of Inspir ed Oxygen 01/18/22 23:38 01/18/22 23:39 01/19/22 00:58 Temperature 97.1 F L Pulse Rate 60 60 Pulse Rate [Left A pical] Pulse Rate [Left P ulse Oximeter] Respiratory Rate 30 H Blood Pressure 133/70 Blood Pressure [Le ft Upper Arm] Blood Pressure [Ri ght Arm] 134/61 Pulse Oximetry 98 97 93 Oxygen Delivery Me thod BiPAP Oxygen Flow Rate Fraction of Inspir ed Oxygen 30 01/19/22 01:02 01/19/22 01:02 01/19/22 01:35 Temperature 97.1 F L Pulse Rate 62 Pulse Rate [Left A pical] Pulse Rate [Left P ulse Oximeter] 65 Respiratory Rate 30 H Blood Pressure Blood Pressure [Le ft Upper Arm] Blood Pressure [Ri ght Arm] 134/61 Pulse Oximetry 94 94 Oxygen Delivery Me thod BiPAP BiPAP Oxygen Flow Rate 30 Fraction of Inspir ed Oxygen 30 01/19/22 01:50 01/19/22 03:00 01/19/22 07:32 Temperature 97.8 F Pulse Rate 62 60 Pulse Rate [Left A pical] Pulse Rate [Left P ulse Oximeter] 60 Respiratory Rate 37 H Blood Pressure Blood Pressure [Le ft Upper Arm] Blood Pressure [Ri ght Arm] 141/67 H Pulse Oximetry 93 Oxygen Delivery Me thod BiPAP Oxygen Flow Rate 30 Fraction of Inspir ed Oxygen 30 01/19/22 08:41 01/19/22 08:41 Temperature 97.5 F L Pulse Rate Pulse Rate [Left A pical] 60 Pulse Rate [Left P ulse Oximeter] Respiratory Rate 26 H 26 H Blood Pressure Blood Pressure [Le ft Upper Arm] Blood Pressure [Ri ght Arm] 127/59 L Pulse Oximetry 96 Oxygen Delivery Me thod BiPAP Oxygen Flow Rate Fraction of Inspir ed Oxygen 30 Labs Labs: Laboratory Results - last 24 hr 01/18/22 01/18/22 01/18/22 19:40 19:40 19:40 WBC 11.14 H RBC 4.62 Hgb 13.0 Hct 39.0 MCV 84 MCH 28 MCHC 33 RDW Coeff of Amberly 13.1 Plt Count 231 Neut % (Auto) 85.1 H Lymph % (Auto) 5.1 L [place] % (Auto) 9.2 Eos % (Auto) 0.0 Baso % (Auto) 0.3 Neut # (Auto) 9.50 H Lymph # (Auto) 0.60 L [place] # (Auto) 1.00 H Eos # (Auto) 0.00 Baso # (Auto) 0.00 Abs Immat Gran (auto) 0.03 INR VBG pH VBG pCO2 VBG pO2 VBG HCO3 Sodium 130 L Potassium 4.1 Chloride 98 Carbon Dioxide 20 BUN 26 Creatinine 1.0 Estimated Creat Clear 51.30 Estimated GFR 60 Glucose 369 H* Lactate 1.7 Calcium 8.0 L Total Bilirubin 1.6 H AST 35 ALT 18 Alkaline Phosphatase 70 Troponin I 0.23 H* C-Reactive Protein 18.1 H NT-Pro-B Natriuret Pep 4310 H Total Protein 7.0 Albumin 3.7 Lipase 23 Procalcitonin Urine Color Urine Appearance Urine pH Ur Specific Dietrich Urine Protein Urine Glucose (UA) Urine Ketones Urine Blood Urine Nitrite Urine Bilirubin Urine Urobilinogen Ur Leukocyte Esterase Urine RBC Urine WBC Ur Squamous Epith Cells Urine Bacteria Coarse Granular Casts SARS-CoV-2 (PCR) 01/18/22 01/18/22 01/18/22 19:40 19:40 20:15 WBC RBC Hgb Hct MCV MCH MCHC RDW Coeff of Amberly Plt Count Neut % (Auto) Lymph % (Auto) [place] % (Auto) Eos % (Auto) Baso % (Auto) Neut # (Auto) Lymph # (Auto) [place] # (Auto) Eos # (Auto) Baso # (Auto) Abs Immat Gran (auto) INR 1.84 H VBG pH VBG pCO2 VBG pO2 VBG HCO3 Sodium Potassium Chloride Carbon Dioxide BUN Creatinine Estimated Creat Clear Estimated GFR Glucose Lactate Calcium Total Bilirubin AST ALT Alkaline Phosphatase Troponin I C-Reactive Protein NT-Pro-B Natriuret Pep Total Protein Albumin Lipase Procalcitonin 0.71 H Urine Color Urine Appearance Urine pH Ur Specific Dietrich Urine Protein Urine Glucose (UA) Urine Ketones Urine Blood Urine Nitrite Urine Bilirubin Urine Urobilinogen Ur Leukocyte Esterase Urine RBC Urine WBC Ur Squamous Epith Cells Urine Bacteria Coarse Granular Casts SARS-CoV-2 (PCR) Negative SARS-CoV-2 01/18/22 01/18/22 01/18/22 20:20 22:01 22:20 WBC RBC Hgb Hct MCV MCH MCHC RDW Coeff of Amberly Plt Count Neut % (Auto) Lymph % (Auto) [place] % (Auto) Eos % (Auto) Baso % (Auto) Neut # (Auto) Lymph # (Auto) [place] # (Auto) Eos # (Auto) Baso # (Auto) Abs Immat Gran (auto) INR VBG pH 7.386 VBG pCO2 35 L VBG pO2 46.4 VBG HCO3 21 Sodium Potassium Chloride Carbon Dioxide BUN Creatinine Estimated Creat Clear Estimated GFR Glucose Lactate Calcium Total Bilirubin AST ALT Alkaline Phosphatase Troponin I 0.25 H* C-Reactive Protein NT-Pro-B Natriuret Pep Total Protein Albumin Lipase Procalcitonin Urine Color Yellow Urine Appearance Slightly Cloudy A Urine pH 5.5 Ur Specific [place]rich 1.020 Urine Protein 3+ A Urine Glucose (UA) 3+ A Urine Ketones 1+ A Urine Blood 3+ A Urine Nitrite Negative Urine Bilirubin 1+ A Urine Urobilinogen 1.0 Ur Leukocyte Esterase Negative Urine RBC 0-2 Urine WBC 0-2 Ur Squamous Epith Cells Few Urine Bacteria None Coarse Granular Casts Moderate A SARS-CoV-2 (PCR) 01/19/22 01/19/22 01/19/22 03:05 06:08 06:08 WBC 8.93 RBC 4.39 Hgb 12.4 Hct 37.7 MCV 86 MCH 28 MCHC 33 RDW Coeff of Amberly 13.3 Plt Count 207 Neut % (Auto) 82.3 H Lymph % (Auto) 6.0 L [place] % (Auto) 11.3 H Eos % (Auto) 0.0 Baso % (Auto) 0.3 Neut # (Auto) 7.30 H Lymph # (Auto) 0.50 L [place] # (Auto) 1.00 H Eos # (Auto) 0.00 Baso # (Auto) 0.03 Abs Immat Gran (auto) 0.01 INR 1.90 H VBG pH VBG pCO2 VBG pO2 VBG HCO3 Sodium Potassium Chloride Carbon Dioxide BUN Creatinine Estimated Creat Clear Estimated GFR Glucose Lactate Calcium Total Bilirubin AST ALT Alkaline Phosphatase Troponin I 0.22 H* C-Reactive Protein NT-Pro-B Natriuret Pep Total Protein Albumin Lipase Procalcitonin Urine Color Urine Appearance Urine pH Ur Specific Dietrich Urine Protein Urine Glucose (UA) Urine Ketones Urine Blood Urine Nitrite Urine Bilirubin Urine Urobilinogen Ur Leukocyte Esterase Urine RBC Urine WBC Ur Squamous Epith Cells Urine Bacteria Coarse Granular Casts SARS-CoV-2 (PCR) 01/19/22 06:08 WBC RBC Hgb Hct MCV MCH MCHC RDW Coeff of Amberly Plt Count Neut % (Auto) Lymph % (Auto) [place] % (Auto) Eos % (Auto) Baso % (Auto) Neut # (Auto) Lymph # (Auto) [place] # (Auto) Eos # (Auto) Baso # (Auto) Abs Immat Gran (auto) INR VBG pH VBG pCO2 VBG pO2 VBG HCO3 Sodium 132 L Potassium 4.0 Chloride 98 Carbon Dioxide 26 BUN 25 Creatinine 1.2 Estimated Creat Clear 42.75 Estimated GFR 48 Glucose 340 H Lactate Calcium 7.8 L Total Bilirubin AST ALT Alkaline Phosphatase Troponin I C-Reactive Protein NT-Pro-B Natriuret Pep Total Protein Albumin Lipase Procalcitonin Urine Color Urine Appearance Urine pH Ur Specific Dietrich Urine Protein Urine Glucose (UA) Urine Ketones Urine Blood Urine Nitrite Urine Bilirubin Urine Urobilinogen Ur Leukocyte Esterase Urine RBC Urine WBC Ur Squamous Epith Cells Urine Bacteria Coarse Granular Casts SARS-CoV-2 (PCR)
[2022-01-19 09:53] LABS: NT Pro B Type NatriureticPept* 4320 PG/mL (0-125)
[2022-01-19 10:04] LABS: HCO3 VBG 26 mmol/L (21-28); Lactate* 1.8 mmol/L (0.5-1.9); PCO2 VBG 46 mmHG (40-50)
[2022-01-19 10:07] LABS: PO2 VBG < 20.0 mmHG (25-47)
[2022-01-19] MEDS: OXYCODONE 5 MG TABLET PO (10:08)
[2022-01-19 10:47] LABS: Procalcitonin* 0.99 ng/mL (<0.50)
--- NOTE | 2022-01-19 15:35 | RESP.RT ---
Pt off of BIPAP, nor requiring it all day. RR low 20s, oxygen 2-4L SPO2 92% BBs with Crackles in bases, upper airway transient wheezing, appears to clear with coughing. PT with strong [employer] cough on command. BIPAP on SB for night.
--- NOTE | 2022-01-19 17:08 | PC.NURSE ---
Addendum entered by Reyna Lindsay RN 01/19/22 17:31: Patient off bipap since 1000. Original Note: Shift Summary: Patient pleasant and cooperative. More alert this morning after Bipap was off and had a friend come to visit. Has been maintaining o2 sats 88-93% on 2-3L/NC. Poor appetite, requesting fluids but needs to be reminded frequently that she is on a fluid restriction. Received oxycodone x1 around 1000, following this patient slept for several hours and has been drowsy but easy to arouse. Had echo done around 1400 this afternoon, meds given @ 1500 during which patient became nauseous and had x1 emesis. Bed sheets and gown changed. Patient also incontinent around this time, has not been incontinent during this shift prior to this. Period of confusion about time/date, repeating the phrase I don't know even when she was alone in the room. Blood glucose taken @ 1600 and was 267. Patient appeared sweaty and restless, temp taken and was 99.2, given PRN tylenol, temp 98.2. MD updated and when checked again @ 1700 patient stated she felt much better although still restless. Has denied pain since 1000.
[2022-01-19] MEDS: SIMVASTATIN 40 MG TABLET PO (17:53)
[2022-01-19 20:09] LABS: HCO3 VBG 25 mmol/L (21-28); PCO2 VBG 49 mmHG (40-50); pH VBG 7.323 (7.32-7.43)
[2022-01-19] MEDS: PIPERACILLIN/TAZOBACTAM 3.375 GM in 0.9 % SODIUM CHLORIDE Mini-bag 100 ML IVPB (20:34)
[2022-01-20] VITALS (7 sets, daily range): BP systolic 106–123; BP diastolic 64–71; PULSE 60–64; RESP 20–24; TEMP 36.6–37.9; O2SAT 91–95
[2022-01-20] MEDS: LIDOCAINE 5% PATCH 1 PATCH TRANSDERMA (00:10)
[2022-01-20] MEDS: ACETAMINOPHEN 500 MG TABLET PO (00:16)
[2022-01-20] MEDS: OXYCODONE 5 MG TABLET PO (00:36)
[2022-01-20] MEDS: IPRAT-ALBUT 0.5-2.5 MG/3 ML NEB 1 NEB IH ×3 (00:36→13:18)
--- NOTE | 2022-01-20 00:39 | PC.NURSE ---
Dr Kilpatrick updated on second Pos. blood culture results.
[2022-01-20] MEDS: PIPERACILLIN/TAZOBACTAM 3.375 GM in 0.9 % SODIUM CHLORIDE Mini-bag 100 ML IVPB ×2 (01:58→09:30)
--- NOTE | 2022-01-20 06:13 | PC.NURSE ---
[id number]: patient on 3L NC while awake in the evening, overnight while asleep 3L oxymask, while awake this AM 2L NC, sats remain mid 90s. patient became restless, dysphoretic and anxious during the night in regards to fluid restriction, patient repetitively saying I just dont know, I dont know why I feel so sick, everything hurts, I want something cold to drink, at this point patient moved from bed to recliner. blood glucose level checked, pain meds given per EMAR, afebrile, ice packs given for comfort. once patient moved to the chair anxiety and pain resolved, patient slept majority of the remaining shift. up to BSC 1X to void, patient had been incontinent of a large void prior to this and voided only a small amount in BSC. Dr Kilpatrick updated on patients status and labs. patient transfers well with assist of 1 to BSC or to recliner from chair. education provided on fluid restriction, patient somewhat forgetful and asks repetitive question. patient also makes repetitive statements like I thinks I am starting to turn a corner, I am starting to feel better.
[2022-01-20 07:15] LABS: Prothrombin Time 36.9 Seconds
[2022-01-20 09:51] LABS: Basophils Absolute Auto 0.02 K/uL (0.00-0.30); Basophils Percent Auto 0.3 % (0.0-3.0); Chloride* 100 mmol/L (96-114); Eosinophils Absolute Auto 0.01 K/uL (0.00-0.50); Eosinophils Percent Auto 0.1 % (0.0-7.0); Hematocrit 39.6 % (33.0-51.0); Hemoglobin* 12.9 gm/dL (12.0-16.0); Immature Granulocytes Abs Auto 0.03 K/uL (0.00-0.30); Lymphocytes Percent Auto 7.5 % (20-44); Mean Corpuscular HGB Conc 33 gm/dL (32-36); Mean Corpuscular Hemoglobin 28 pg (26-34); Mean Corpuscular Volume 86 fL (80-100); Neutrophils Percent Auto 80.7 % (42.0-72.0); Platelet Count* 174 K/uL (140-440); Potassium* 3.4 mmol/L (3.6-5.1); RDW Coefficient of Variation % 13.6 % (11.5-15.5); Red Blood Count 4.61 m/uL (4.00-5.20); Sodium* 136 mmol/L (135-149); White Blood Count* 7.24 K/uL (4.50-11.00)
[2022-01-20 09:54] LABS: Blood Urea Nitrogen* 31 mg/dL (7-30); Carbon Dioxide* 30 mmol/L (20-32); Creatinine* 1.2 mg/dL (0.5-1.5); Est. Creatinine Clearance* 42.75; Estimated Glomerular Filt Rate 48 ml/min
[2022-01-20 09:55] LABS: Calcium* 7.9 mg/dL (8.4-10.6); Glucose* 98 mg/dL (60-115)
[2022-01-20 10:11] LABS: Slide Review Reflex No
--- NOTE | 2022-01-20 10:50 | P.DS_ITS ---
DS: Providers Provider Date Seen: 01/20/22 Date of admission: 01/19/22 00:30 Primary care physician: Tiny Perez MD Admitting Clinician: Kati Kilpatrick MD Consults: 01/19/22 01:35 Consult to Occupational Therapy [CONS] Routine Comment: Reason(s) for OT Consult:: Evaluate and Treat Any Restrictions?:: No Restrictions Consult to Physical Therapy [CONS] Routine Comment: Reason(s) for PT Consult:: Evaluate and Treat Any Restrictions?:: No Restrictions Consult to Respiratory Therapy [CONS] Routine Comment: Reason(s) for RT Consult:: Consult Attending Physician on discharge: Darian Knox MD Date of Discharge: 01/20/22 DS: Diagnosis Discharge Diagnosis (1) Bacteremia: Status: Acute (2) Chronic atrial fibrillation: Status: Chronic (3) Elevated troponin: Status: Acute Problem details: stable at 0.25 (4) Hyperglycemia due to diabetes mellitus: Status: Acute (5) Chronic anticoagulation: Status: Acute DS: Summary Hospital Course Hospital Course: .71F who presented to ED with back pain; in the ED given one dose of zosyn, plac ed on BIPAP overnight and started on IV lasix for presumed Diastolic CHF exacerbation. This morning noted to have GPC positive blood cx. She was weaned off supplemental oxygen. TTE was obtained (formal read pending). Her ca 1. Gram Positive Bacteremia 2. Hx of Chronic atrial Fibrillation 3. Hypervolemic Hyponatremia; 4. Hx of Type II DM 5. Acute hypoxic respiratory failure, resolved; likely secondary to mild CHF exacerbation 6. Hx of COPD 7. Hx of Crohn's Dx 8. Hx of HFpEF, now with suspected mild decompensated CHF, resolved with IV lasix, hx of cardiac pacemaker 9. Elevated troponin-plateauted, likely Type II NSTEMI secondary to bactermia She was transferred to [facility] for further management of her gram positive bacteremia. She was continued on IV vancomycin. Case discussed with [facility], with a nticipated need for Infectious Disease consultation, JOSE, and further diagnostic workup. Discharge Time 60 minutes Time Spent with Patient Time attestation: Total time spent providing and/or coordinating discharge services: Time spent: Greater than 30 minutes Exam Narrative: Exam Narrative: GEn: no acute distress HEENT: NCAT EOMI MMM CV: IRIR normal s1 s2 Lungs: CTAB Abdo: Soft, nt,nd Neuro: Alert, oriented, CN intact Const: Vital Signs, click to edit/add: Vital Signs - 24 hr 01/19/22 10:59 01/19/22 11:35 01/19/22 14:06 Temperature 99.6 F Pulse Rate Pulse Rate [Left A pical] Pulse Rate [Left P ulse Oximeter] 60 Respiratory Rate 24 Blood Pressure [Ri ght Arm] 141/59 H Pulse Oximetry 91 91 Oxygen Delivery Me thod Nasal Cannula Nasal Cannula Oxygen Flow Rate 2 3 Fraction of Inspir ed Oxygen 30 01/19/22 15:45 01/19/22 16:08 01/19/22 19:00 Temperature 98.6 F 97.7 F Pulse Rate 70 Pulse Rate [Left A pical] 64 65 Pulse Rate [Left P ulse Oximeter] Respiratory Rate 26 H 22 Blood Pressure [Ri ght Arm] 153/78 H 134/61 Pulse Oximetry 90 91 Oxygen Delivery Me thod Nasal Cannula Nasal Cannula Oxygen Flow Rate 3 3 Fraction of Inspir ed Oxygen 01/19/22 23:00 01/19/22 23:00 01/20/22 00:00 Temperature 98.2 F Pulse Rate 61 Pulse Rate [Left A pical] 62 62 Pulse Rate [Left P ulse Oximeter] Respiratory Rate 24 22 Blood Pressure [Ri ght Arm] 123/82 Pulse Oximetry 90 Oxygen Delivery Me thod OxyMask Oxygen Flow Rate 3 Fraction of Inspir ed Oxygen 01/20/22 02:57 01/20/22 07:39 01/20/22 07:00 Temperature 98.7 F 97.8 F Pulse Rate Pulse Rate [Left A pical] 60 61 64 Pulse Rate [Left P ulse Oximeter] 60 Respiratory Rate 20 24 Blood Pressure [Ri ght Arm] 123/64 119/71 Pulse Oximetry 92 95 Oxygen Delivery Me thod OxyMask Nasal Cannula Oxygen Flow Rate 3 2 Fraction of Inspir ed Oxygen DS: Data Data Completed and Pending Labs on day of discharge: Labs from last 24 hours 01/20/22 01/20/22 01/20/22 06:18 06:18 06:18 WBC 7.24 RBC 4.61 Hgb 12.9 Hct 39.6 MCV 86 MCH 28 MCHC 33 RDW Coeff of Amberly 13.6 Plt Count 174 Neut % (Auto) 80.7 H Lymph % (Auto) 7.5 L [place] % (Auto) 11.0 Eos % (Auto) 0.1 Baso % (Auto) 0.3 Neut # (Auto) 5.80 Lymph # (Auto) 0.50 L [place] # (Auto) 0.80 Eos # (Auto) 0.01 Baso # (Auto) 0.02 Abs Immat Gran (auto) 0.03 INR 3.70 H VBG pH VBG pCO2 VBG pO2 VBG HCO3 Sodium 136 Potassium 3.4 L Chloride 100 Carbon Dioxide 30 BUN 31 H Creatinine 1.2 Estimated Creat Clear 42.75 Estimated GFR 48 Glucose 98 Calcium 7.9 L 01/19/22 20:05 WBC RBC Hgb Hct MCV MCH MCHC RDW Coeff of Amberly Plt Count Neut % (Auto) Lymph % (Auto) [place] % (Auto) Eos % (Auto) Baso % (Auto) Neut # (Auto) Lymph # (Auto) [place] # (Auto) Eos # (Auto) Baso # (Auto) Abs Immat Gran (auto) INR VBG pH 7.323 VBG pCO2 49 VBG pO2 28.0 VBG HCO3 25 Sodium Potassium Chloride Carbon Dioxide BUN Creatinine Estimated Creat Clear Estimated GFR Glucose Calcium Preliminary micro results at discharge 01/19/22 09:52 Blood Culture - Preliminary Blood Gram positive cocci 01/19/22 10:00 Blood Culture - Preliminary Blood Gram positive cocci 01/18/22 19:40 Blood Culture - Preliminary Blood Gram positive cocci 01/18/22 20:20 Blood Culture - Preliminary Blood Gram positive cocci Discharge Plan Discharge Disposition: Xfer Other Discharge Location: [facility] Date of Admission: 01/19/22 00:30 Attending Provider on Discharge: Darian Knox Primary Care Provider: Tiny Perez Condition: Stable Anticipated Discharge Date/Time: 01/20/22 09:46 Discharge Medications: Continued tizanidine 2 mg capsule 2 mg PO TID PRN (Reason: muscle spasticity) Qty: 30 0RF metformin 500 mg tablet extended release 24 hr 1,000 mg PO BIDWMEAL Label Comments: TAKE TWO TABLETS (1000MG) BY MOUTH TWICE A DAY WITH MEALS tizanidine 2 mg tablet 2 mg PO TID PRN (Reason: muscle spasticity) Label Comments: TAKE ONE TABLET(2MG) BY MOUTH THREE TIMES A DAY NEEDED FOR MUSCLE SPASTICITY cholecalciferol (vitamin D3) 125 mcg (5,000 unit) capsule 5,000 unit PO DAILY acetaminophen 500 mg capsule 500 mg PO Q6H PRN acyclovir 400 mg tablet 400 mg PO BID albuterol sulfate [ProAir HFA] 90 mcg/actuation HFA aerosol inhaler 2 inh inhalation Q4H PRN balsalazide 750 mg capsule 2,250 mg PO TID cholecalciferol (vitamin D3) 50 mcg (2,000 unit) capsule 4,000 unit PO DAILY Label Comments: NOT TAKING furosemide 20 mg tablet 20 mg PO DAILY glipizide 5 mg tablet 7.5 mg PO BIDWM insulin glargine [Lantus Solostar U-100 Insulin] 100 unit/mL (3 mL) insulin pen 36 unit subcut DAILY ipratropium-albuterol 0.5 mg-3 mg(2.5 mg base)/3 mL solution for nebulization 3 ml inhalation Q6H metformin 500 mg tablet 500 mg PO BIDWMEAL Label Comments: NOT TAKING pseudoephedrine HCl 60 mg tablet 60 mg PO Q6H PRN simvastatin 40 mg tablet 40 mg PO QPM warfarin 2.5 mg tablet See Rx Instructions PO DAILY Rx Instructions: 2.5-5MG orally daily; 5mg MWF, 2.5mg all other days Discharge Orders: Discharge Order (Routine); Ordered 01/20/22 Ordered By: Darian Knox Activity Level: Activity as Tolerated Discharge Diet: Diabetic Follow Up Appointments: Tiny Perez MD [Primary Care Provider] - Forms: [facility] Info Instructions Hospital Course: .71F who presented to ED with back pain; in the ED given one dose of zosyn, placed on BIPAP overnight and started on IV lasix for presumed Diastolic CHF exacerbation. This morning noted to have GPC positive blood cx. She was weaned off supplemental oxygen. TTE was obtained (formal read pending). Her ca 1. Gram Positive Bacteremia 2. Hx of Chronic atrial Fibrillation 3. Hypervolemic Hyponatremia; 4. Hx of Type II DM 5. Acute hypoxic respiratory failure, resolved; likely secondary to mild CHF exacerbation 6. Hx of COPD 7. Hx of Crohn's Dx 8. Hx of HFpEF, now with suspected mild decompensated CHF, resolved with IV lasix, hx of cardiac pacemaker 9. Elevated troponin-plateauted, likely Type II NSTEMI secondary to bactermia She was transferred to [facility] for further management of her gram positive bacteremia. She was continued on IV vancomycin. Case discussed with [facility], with anticipated need for Infectious Disease consultation, JOSE, and further diagnostic workup. Discharge Time 60 minutes
--- NOTE | 2022-01-20 14:30 | PC.NURSE ---
shfit note: pt temp 100.3 with BP 106/68 @ time of transfer. pt had audible wheezing and noted upper lobe wheezes with bibasilar crackles. Pt received neb prior to transfer. Pt on 1 L pnc to keep sats >88%. Pt voided x1. pt had emesis right after medications this a.m. Report given via phone to Ene @ [facility]. Iv patent at time of dc. HR paced. Belong[place] pt at [place].
--- NOTE | 2022-01-21 20:01 | PC.NURSE ---
Lab called M/S with positive blood culture gram pos cocci. Lab results called to Nurse Melgoza at [facility].
== END 2022-01-20 13:25 | disposition other institution (70) | DRG 280 ==
LOC: ED 23:24 → MEDSURG 01-19 00:44
PROVIDERS: Hospitalist; Admitting Provider Family Medicine; Emergency Provider Family Medicine; PCP Family Medicine; Visit Provider Family Medicine
DX: I50.33 Acute on chronic diastolic (congestive) heart failure (principal); J96.01 Acute respiratory failure with hypoxia; I21.A1 Myocardial infarction type 2; I48.20 Chronic atrial fibrillation, unspecified; I42.9 Cardiomyopathy, unspecified; E87.1 Hypo-osmolality and hyponatremia; K50.90 Crohn's disease, unspecified, without complications; R78.81 Bacteremia; Z79.01 Long term (current) use of anticoagulants; J44.9 Chronic obstructive pulmonary disease, unspecified; E66.01 Morbid (severe) obesity due to excess calories; E11.65 Type 2 diabetes mellitus with hyperglycemia; E78.5 Hyperlipidemia, unspecified; B96.89 Other specified bacterial agents as the cause of diseases classified elsewhere
CPT/HCPCS: 36415; 71045; 71260; 74177; 80048; 80053; 81001; 82803; 82947; 83605; 83690; 83880; 84145; 84484; 85025; 85610; 86140; 87040; 87186; 87635; 93005; 93306; 94640; 94660; 94761; 97110; 97162; 97166; 97535; 99285; 99291; A9270; J1170; J1940; J2543; J3370; J7050; J7120; Q9967

== ENCOUNTER 2022-01-20 13:04 | Outpatient (CLI) | payer OTHER, MEDICARE, SELFPAY | END 2022-01-20 13:05 | disposition home or self-care (01) | LOC: AMB 02-05 10:56 | PROVIDERS: PCP Family Medicine; Visit Provider Family Medicine | DX: R53.1 Weakness (principal); R78.81 Bacteremia | CPT/HCPCS: A0425; A0426 ==

== ENCOUNTER 2022-06-13 10:00 | Outpatient (RCR) | payer OTHER, MEDICARE, SELFPAY ==
[2021-12-19 10:23] VITALS: BP 138/84; PULSE 82; RESP 16; TEMP 35.8; O2SAT 94
[2022-04-18 08:36] VITALS: BP 146/82; PULSE 85; RESP 20; TEMP 35.9; O2SAT 98
[2022-04-18] MEDS: CYANOCOBALAMIN 1,000 MCG/ML inj 1000 MCG IM (09:06)
--- NOTE | 2022-05-28 08:12 | ONC.NURNOTE ---
pt called to cancel appt for vit b12 due to icy roads. Pt will call to reschedule.
[2022-06-13] MEDS: CYANOCOBALAMIN 1,000 MCG/ML inj 1000 MCG IM (10:24)
== END 2022-06-17 23:59 | disposition home or self-care (01) ==
LOC: CCIC 10:00
PROVIDERS: PCP Family Medicine; Referring Provider Family Medicine; Visit Provider Internal Medicine Hematology & Oncology
DX: C49.A4 Gastrointestinal stromal tumor of large intestine (principal); E53.8 Deficiency of other specified B group vitamins
CPT/HCPCS: 96372; J3420

== ENCOUNTER 2023-01-06 10:00 | Outpatient (RCR) | payer MEDICARE, OTHER, SELFPAY ==
[2022-07-15 10:00] VITALS: BP 114/66; PULSE 85; RESP 16; TEMP 36.1; O2SAT 96
[2022-07-15] MEDS: CYANOCOBALAMIN 1,000 MCG/ML inj 1000 MCG IM (10:13)
[2022-08-12 10:06] VITALS: BP 121/82; PULSE 83; RESP 16; TEMP 36.2; O2SAT 97
[2022-08-12] MEDS: CYANOCOBALAMIN 1,000 MCG/ML inj 1000 MCG IM (10:32)
[2022-09-10 09:52] VITALS: BP 117/70; PULSE 76; RESP 16; TEMP 36; O2SAT 97
[2022-09-10] MEDS: CYANOCOBALAMIN 1,000 MCG/ML inj 1000 MCG IM (10:07)
[2022-10-02 10:06] LABS: Albumin* 4.1 g/dL (3.3-5.0); Chloride* 107 mmol/L (96-114); Sodium* 138 mmol/L (135-149)
[2022-10-02 10:07] LABS: Potassium* 4.3 mmol/L (3.6-5.1)
[2022-10-02 10:09] LABS: Alkaline Phosphatase* 67 U/L (40-150); Aspartate Amino Transferase* 16 U/L (12-35); Bilirubin Total* 0.9 mg/dL (0.1-1.5); Blood Urea Nitrogen* 13 mg/dL (7-30); Carbon Dioxide* 23 mmol/L (20-32); Creatinine* 0.6 mg/dL (0.5-1.5); Estimated Glomerular Filt Rate 95 ml/min; Total Protein* 7.3 g/dL (6.0-8.3)
[2022-10-02 10:10] LABS: Alanine Aminotransferase* 15 U/L (4-35); Calcium* 8.9 mg/dL (8.4-10.6); Glucose* 286 mg/dL (60-115)
[2022-10-09] MEDS: CYANOCOBALAMIN 1,000 MCG/ML inj 1000 MCG IM (10:41)
[2022-10-09 10:44] LABS: Basophils Absolute Auto 0.04 K/uL (0.00-0.30); Basophils Percent Auto 0.5 % (0.0-3.0); Eosinophils Absolute Auto 0.11 K/uL (0.00-0.50); Eosinophils Percent Auto 1.5 % (0.0-7.0); Hemoglobin* 15.2 gm/dL (12.0-16.0); Immature Granulocytes Abs Auto 0.01 K/uL (0.00-0.30); Immature Granulocytes Pct Auto 0.1 %; Lymphocytes Percent Auto 15.9 % (20-44); Mean Corpuscular HGB Conc 34 gm/dL (32-36); Mean Corpuscular Hemoglobin 29 pg (26-34); Mean Corpuscular Volume 84 fL (80-100); Monocytes Percent Auto 4.9 % (0.0-11.0); Neutrophils Percent Auto 77.1 % (42.0-72.0); Platelet Count* 284 K/uL (140-440); RDW Coefficient of Variation % 12.5 % (11.5-15.5); Red Blood Count 5.33 m/uL (4.00-5.20); White Blood Count* 7.29 K/uL (4.50-11.00)
[2022-10-09 10:50] LABS: Slide Review Reflex No
[2022-10-09 11:00] VITALS: RESP 16; TEMP 36.1
[2022-10-09 11:11] LABS: Albumin* 4.4 g/dL (3.3-5.0); Chloride* 104 mmol/L (96-114); Potassium* 4.3 mmol/L (3.6-5.1); Sodium* 137 mmol/L (135-149)
[2022-10-09 11:13] LABS: Bilirubin Total* 0.9 mg/dL (0.1-1.5); Creatinine* 0.7 mg/dL (0.5-1.5); Estimated Glomerular Filt Rate 91 ml/min; Iron* 103 ug/dL (37-170)
[2022-10-09 11:14] LABS: Alanine Aminotransferase* 15 U/L (4-35); Alkaline Phosphatase* 77 U/L (40-150); Aspartate Amino Transferase* 16 U/L (12-35); Blood Urea Nitrogen* 15 mg/dL (7-30); Calcium* 9.2 mg/dL (8.4-10.6); Carbon Dioxide* 21 mmol/L (20-32)
[2022-10-09 11:22] LABS: Percent Iron Saturation 34 % (20-50); Total Iron Binding Capacity 306 ug/dL (265-497)
[2022-10-09 11:31] LABS: Glucose* 410 mg/dL (60-115)
[2022-10-09 12:03] LABS: Vitamin B12* 627 pg/mL (243-894)
--- NOTE | 2022-10-09 15:41 | ONC.NURNOTE ---
patient called and aware of elevated blood sugar.
[2022-10-10 10:55] LABS: Folate, Serum 8.9 ng/mL (>=5.9)
[2022-12-08] MEDS: CYANOCOBALAMIN 1,000 MCG/ML inj 1000 MCG IM (16:01)
--- NOTE | 2022-12-08 16:21 | ONC.NURNOTE ---
Patient here for her B12 injection. Tolerated it well and feeling well today.
[2023-01-06 10:09] VITALS: BP 166/82; PULSE 75; RESP 16; TEMP 36.1; O2SAT 96
[2023-01-06] MEDS: CYANOCOBALAMIN 1,000 MCG/ML inj 1000 MCG IM (10:10)
== END 2023-01-11 23:59 | disposition home or self-care (01) ==
LOC: CCIC 10:00
PROVIDERS: Clinical Nurse Specialist; PCP Family Medicine; Referring Provider Family Medicine; Visit Provider Internal Medicine Hematology & Oncology
DX: C49.A4 Gastrointestinal stromal tumor of large intestine (principal); E53.8 Deficiency of other specified B group vitamins
CPT/HCPCS: 36415; 80053; 82607; 82728; 82746; 83540; 83550; 85025; 96372; 99212; 99214; J3420

== ENCOUNTER 2023-04-17 10:30 | Outpatient (RCR) | payer MEDICARE, BC, SELFPAY ==
[2023-02-13] MEDS: CYANOCOBALAMIN 1,000 MCG/ML inj 1000 MCG IM (09:00)
[2023-03-13 08:28] VITALS: BP 156/82; PULSE 90; RESP 16; TEMP 35.3; O2SAT 97
[2023-03-13] MEDS: CYANOCOBALAMIN 1,000 MCG/ML inj 1000 MCG IM (08:31)
[2023-04-17] MEDS: CYANOCOBALAMIN 1,000 MCG/ML inj 1000 MCG IM (10:28)
[2023-04-17 12:09] VITALS: BP 112/65; PULSE 68; RESP 16; TEMP 36.1; O2SAT 98
--- NOTE | 2023-05-22 12:26 | ONC.NURNOTE ---
Pt did not show up for vitamin B12 injection. Origination Specialist left message for pt to call and reschedule.
--- NOTE | 2023-06-09 14:54 | ONC.NURNOTE ---
Clothes Shaker received a call from Diane stating that her Vit B12 is not covered at the hospital but is covered at her clinic, she will be transferring to [facility] for her injections with her PCP. She will be due for her 12 month follow up and C/T scan in September 2023.
== END 2023-08-12 23:59 | disposition home or self-care (01) ==
LOC: CCIC 10:30
PROVIDERS: PCP Family Medicine; Referring Provider Family Medicine; Visit Provider Internal Medicine Hematology & Oncology
DX: C49.A4 Gastrointestinal stromal tumor of large intestine (principal); E53.8 Deficiency of other specified B group vitamins
CPT/HCPCS: 96372; J3420

== ENCOUNTER 2023-12-23 17:20 | Outpatient (CLI) | payer OTHER, MEDICARE, BC, SELFPAY | END 2023-12-23 17:21 | disposition home or self-care (01) | LOC: AMB 12-26 10:07 | PROVIDERS: PCP Family Medicine; Visit Provider Family Medicine | DX: S09.90XA Unspecified injury of head, initial encounter (principal); W01.0XXA Fall on same level from slipping, tripping and stumbling without subsequent striking against object, initial encounter; Y92.099 Unspecified place in other non-institutional residence as the place of occurrence of the external cause | CPT/HCPCS: A0425; A0427 ==

== ENCOUNTER 2023-12-23 17:39 | Emergency (ER) | payer OTHER, MEDICARE, BC, SELFPAY ==
[2023-12-23] VITALS (8 sets, daily range): BP systolic 188–191; BP diastolic 88–101; PULSE 60–79; RESP 16; TEMP 36.1; O2SAT 95–99; BMI 35.5
--- NOTE | 2023-12-23 17:46 | ED_ITS ---
HPI - General Adult General Time Seen by Provider: 17:47 Date Seen: 12/23/23 Chief complaint: Fall/Minor Trauma Stated complaint: Fall Time Seen by Provider: 12/23/23 17:40 Source: patient, EMS, RN notes reviewed and old records reviewed Mode of arrival: EMS Limitations: no limitations History of Present Illness HPI narrative: 73-year-old female who presents today after a fall at home. Patient is on Coumadin chronically for history of atrial fibrillation. The patient reports she was picking up a box, stumbled and fell backward. She did hit her head, no loss of consciousness. Denies preceding chest pain, shortness of breath, lightheadedness. Denies any pain including in the head although does have an area of swelling. Took her Coumadin last night, scheduled for repeat INR next week. Related Data Home Medications ?Medication ?Instructions ?Recorded ?Confirmed acetaminophen 500 mg capsule 500 mg PO Q6H PRN 11/14/21 02/13/23 acyclovir 400 mg tablet 400 mg PO BID 11/14/21 02/13/23 albuterol sulfate 90 mcg/actuation 2 inh inhalation Q4H PRN 11/14/21 02/13/23 aerosol inhaler (ProAir HFA) balsalazide 750 mg capsule 2,250 mg PO TID 11/14/21 02/13/23 cholecalciferol (vitamin D3) 50 4,000 unit PO DAILY 11/14/21 02/13/23 mcg (2,000 unit) capsule furosemide 20 mg tablet 20 mg PO DAILY 11/14/21 02/13/23 glipizide 5 mg tablet 7.5 mg PO BIDWM 11/14/21 02/13/23 insulin glargine 100 unit/mL (3 36 unit subcut DAILY 11/14/21 02/13/23 mL) subcutaneous pen (Lantus Solostar U-100 Insulin) ipratropium 0.5 mg-albuterol 3 mg 3 ml inhalation Q6H 11/14/21 02/13/23 (2.5 mg base)/3 mL nebulization soln metformin 500 mg tablet 500 mg PO BIDWMEAL 11/14/21 02/13/23 simvastatin 40 mg tablet 40 mg PO QPM 11/14/21 02/13/23 warfarin 2.5 mg tablet See Rx Instructions PO DAILY 11/14/21 02/13/23 cholecalciferol (vitamin D3) 125 5,000 unit PO DAILY 01/19/22 02/13/23 mcg (5,000 unit) capsule insulin admin supplies 08/26/22 10/09/22 Previous Rx's ?Medication ?Instructions ?Recorded tizanidine 2 mg capsule 2 mg PO TID PRN muscle spasticity 01/16/22 #30 caps Allergies Allergy/AdvReac Type Severity Reaction Status Date / Time aspirin Allergy Mild Verified 12/23/23 17:49 dapagliflozin Allergy Unknown Verified 12/23/23 17:49 erythromycin base Allergy Unknown Verified 12/23/23 17:49 [facility] Medical History (Updated 12/23/23 @ 18:39 by Noble Dooley MD) Melena ?K92.1 - Melena (ICD-10) Amputation of toe of right foot ?S98.131A - Complete traumatic amputation of one right lesser toe, initial encounter (ICD-10) Amputation of toe of left foot ?S98.132A - Complete traumatic amputation of one left lesser toe, initial encounter (ICD-10) Morbid obesity with BMI of 40.0-44.9, adult ?E66.01 - Morbid (severe) obesity due to excess calories (ICD-10) ?Z68.41 - Body mass index [BMI] 40.0-44.9, adult (ICD-10) Regional enteritis ?K50.90 - Crohn's disease, unspecified, without complications (ICD-10) Venous stasis of both lower extremities ?I87.8 - Other specified disorders of veins (ICD-10) Upper respiratory tract infection ?J06.9 - Acute upper respiratory infection, unspecified (ICD-10) Type 2 diabetes mellitus ?E11.9 - Type 2 diabetes mellitus without complications (ICD-10) Osteoarthritis of shoulder ?M19.019 - Primary osteoarthritis, unspecified shoulder (ICD-10) Malaise ?R53.81 - Other malaise (ICD-10) Incisional hernia ?K43.2 - Incisional hernia without obstruction or gangrene (ICD-10) Hyperlipidemia ?E78.5 - Hyperlipidemia, unspecified (ICD-10) History of vitamin D deficiency ?Z86.39 - Personal history of other endocrine, nutritional and metabolic disease (ICD-10) History of Crohn's disease ?Z87.19 - Personal history of other diseases of the digestive system (ICD-10) History of colonic polyps (2010) ?Z86.010 - Personal history of colonic polyps (ICD-10) History of Clostridioides difficile colitis (02/22/18) ?Z86.19 - Personal history of other infectious and parasitic diseases (ICD- 10) History of cardiac pacemaker in situ (2007) ?Z95.0 - Presence of cardiac pacemaker (ICD-10) Cough ?R05.9 - Cough, unspecified (ICD-10) Chronic obstructive pulmonary disease ?J44.9 - Chronic obstructive pulmonary disease, unspecified (ICD-10) Chronic atrial fibrillation ?I48.20 - Chronic atrial fibrillation, unspecified (ICD-10) Cardiomyopathy ?I42.9 - Cardiomyopathy, unspecified (ICD-10) Anticoagulation goal of INR 2 to 3 ?Z51.81 - Encounter for therapeutic drug level monitoring (ICD-10) ?Z79.01 - care home (current) use of anticoagulants (ICD-10) 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) ?Z85.09 - Personal history of malignant neoplasm of other digestive organs (ICD-10) Surgical History (Updated 01/19/22 @ 01:17 by Kati Kilpatrick MD) History of amputation of toe ?Z89.429 - Acquired absence of other toe(s), unspecified side (ICD-10) H/O rectal polypectomy ?Z98.890 - Other specified postprocedural states (ICD-10) ?Z87.19 - Personal history of other diseases of the digestive system (ICD-10) Hx of cholecystectomy ?Z90.49 - Acquired absence of other specified parts of digestive tract (ICD- 10) Hx of appendectomy ?Z90.49 - Acquired absence of other specified parts of digestive tract (ICD- 10) History of esophagogastroduodenoscopy (EGD) (02/22/18) ?Z98.890 - Other specified postprocedural states (ICD-10) History of section ?Z98.891 - History of uterine scar from previous surgery (ICD-10) History of laparoscopic partial gastrectomy (~03/2018) ?Z90.3 - Acquired absence of stomach [part of] (ICD-10) Family History (Updated 01/19/22 @ 01:18 by Kati Kilpatrick MD) Father Prostate cancer Mother Diabetes Coronary artery disease Social History Smoking Status: Never smoker How often do you have a drink containing alcohol: never AUDIT-C Alcohol total score: 0 Non-prescribed substance use: denies use Caffeine: Yes (a few cans per day) service: No Exam Narrative: Exam Narrative: General: Well-developed and well-nourished, no acute distress Head: 8 cm hematoma the left occipital parietal lesion Eyes: Pupils are equal reactive, extraocular motions intact, conjunctiva clear ENT: External nose and ears are normal, posterior pharynx without erythema or exudate Neck: No midline cervical tenderness, full spontaneous range of motion the neck, trachea midline, no adenopathy Heart: Regular rate and rhythm no murmurs or thrills Lungs: Clear to auscultation bilaterally without wheezes or crackles Abdomen: Soft, nontender, nondistended with active bowel sounds Musculoskeletal: No tenderness, deformity, or edema Neurologic: Awake, alert, and oriented x3, no gross focal neurologic deficits, cranial nerves intact as tested Psych: Mood and affect are appropriate Skin: No rashes Const: Vital Signs, click to edit/add: Vital Signs - 24 hr 12/23/23 17:48 12/23/23 17:49 12/23/23 18:00 Temperature 97.0 F L Pulse Rate 77 61 Pulse Rate [Pulse Oximeter] 79 Respiratory Rate 16 Blood Pressure [Ri ght Upper Arm] 191/101 H Pulse Oximetry 98 98 99 Oxygen Delivery Me thod Room Air 12/23/23 18:23 12/23/23 18:30 Temperature Pulse Rate 60 61 Pulse Rate [Pulse Oximeter] Respiratory Rate Blood Pressure [Ri ght Upper Arm] Pulse Oximetry 97 98 Oxygen Delivery Me thod Course Course ED Course: Patient seen examined, reviewed most recent oncology visit from August 2022 which was 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 Patient presents today after falling backward after tripping. No preceding symptoms to suggest syncope, no weakness. Complains only of head injury and does have a large hematoma on the back of the head but says she is not having any pain. No neck pain, no midline cervical tenderness, full spontaneous range with of the neck, consider CT scan of the cervical spine but not indicated based on clinical exam. CT scan of the head is ordered along with INR. Reevaluation(s) Time of Reevaluation #1: 18:40 Reevaluation #1: CT scan of the head in panel interpreted by me demonstrates large scalp hematoma but no intracranial abnormalities. Time of Reevaluation #2: 18:59 Reevaluation #2: INR is slightly subtherapeutic, given fall and scalp hematoma will not make any changes to patient's Coumadin today Vital Signs Vital signs: Initial Vital Signs Pulse Rate 77 12/23/23 17:48 Pulse Oximetry 98 12/23/23 17:48 Vital Signs Pulse Rate 77 12/23/23 17:48 Pulse Oximetry 98 12/23/23 17:48 Temperature 97.0 F L 12/23/23 17:49 Pulse Rate 61 12/23/23 18:30 Respiratory Rate 16 12/23/23 17:49 Blood Pressure 191/101 H 12/23/23 17:49 Pulse Oximetry 98 12/23/23 18:30 Oxygen Delivery Method Room Air 12/23/23 17:49 Medical Decision Making Lab Data Labs: Lab Results 12/23/23 Range/Units 18:22 INR 1.72 H (0.91-1.10) Discharge Plan Discharge Clinical Impression: Hematoma of left parietal scalp, Anticoagulated on Coumadin Patient Disposition: Home, Self-Care Condition: Stable Instructions: Hematoma (ED) Additional Instructions: Apply ice packs 15-20 minutes at a time every 2-3 hours while awake today and tomorrow Apply pressure to the area as able Activity Level: Activity as Tolerated Discharge Diet: Regular Prescriptions: No Action tizanidine 2 mg capsule 2 mg PO TID PRN (Reason: muscle spasticity) Qty: 30 0RF cholecalciferol (vitamin D3) 125 mcg (5,000 unit) capsule 5,000 unit PO DAILY acetaminophen 500 mg capsule 500 mg PO Q6H PRN acyclovir 400 mg tablet 400 mg PO BID albuterol sulfate [ProAir HFA] 90 mcg/actuation HFA aerosol inhaler 2 inh inhalation Q4H PRN balsalazide 750 mg capsule 2,250 mg PO TID cholecalciferol (vitamin D3) 50 mcg (2,000 unit) capsule 4,000 unit PO DAILY Patient Comments: NOT TAKING furosemide 20 mg tablet 20 mg PO DAILY glipizide 5 mg tablet 7.5 mg PO BIDWM insulin glargine [Lantus Solostar U-100 Insulin] 100 unit/mL (3 mL) insulin pen 36 unit subcut DAILY ipratropium-albuterol 0.5 mg-3 mg(2.5 mg base)/3 mL solution for nebulization 3 ml inhalation Q6H metformin 500 mg tablet 500 mg PO BIDWMEAL Patient Comments: NOT TAKING simvastatin 40 mg tablet 40 mg PO QPM warfarin 2.5 mg tablet See Rx Instructions PO DAILY Rx Instructions: 2.5-5MG orally daily; 5mg MWF, 2.5mg all other days (DME) insulin admin supplies Insulin Pen See Rx Instructions .Route Rx Instructions: As directed Follow Up/Referrals: Tiny Perez MD [Primary Care Provider] - [facility] Alone [facility]
--- NOTE | 2023-12-23 17:55 | CRLHL7_ITS ---
For Patients: As a result of the 21st Century Cures Act, medical imaging exams and procedure reports are released immediately into your electronic medical record. You may view this report before your referring provider. If you have questions, please contact your health care provider. INDICATION: Fall, head injury, on blood thinners TECHNIQUE: Noncontrast axial CT of the head. Coronal and sagittal reformats. Bone and soft tissue algorithms. COMPARISON: None FINDINGS: Left parietal scalp hematoma. The calvarium appears grossly intact. No acute intracranial hemorrhage or abnormal extra-axial fluid collection identified. No midline shift, hydrocephalus or herniation. Preserved tucker-white matter differentiation. Unremarkable white matter attenuation. Calcific intracranial atherosclerotic plaquing. Clear visualized paranasal sinuses and mastoid air cells. Unremarkable orbits. IMPRESSION: 1. Left parietal scalp hematoma. No skull fracture or acute intracranial hemorrhage identified. Please note that all CT scans at this facility use dose modulation, iterative reconstruction, and/or weight-based dosing when appropriate to reduce radiation dose to as low as reasonably achievable. Dictated by Johnna Chilel MD @ 12/23/2023 6:39:39 PM (Electronically Signed)
[2023-12-23 18:42] LABS: INR 1.72 (0.91-1.10); Prothrombin Time 21.4 Seconds
== END 2023-12-23 19:14 | disposition home or self-care (01) ==
PROVIDERS: Emergency Provider Family Medicine; PCP Family Medicine
DX: S00.03XA Contusion of scalp, initial encounter (principal); W01.0XXA Fall on same level from slipping, tripping and stumbling without subsequent striking against object, initial encounter
CPT/HCPCS: 36415; 70450; 85610; 99284